=== PATIENT | male | born 1960 | race Caucasian/White ===

== ENCOUNTER → 2017-04-19 | Outpatient (CLI) | payer BC ==
[2017-04-19 14:24] LABS: Blood Urea Nitrogen 14 mg/dL (9-20); Non-African American GFR(MDRD) >60 (>60 ml/min/1.73 sqM)
== END | disposition home or self-care (01) ==
LOC: LABWHC1 12:30
PROVIDERS: ATTEND Internal Medicine
DX: R10.32 Left lower quadrant pain (principal)
CPT/HCPCS: 36415; 82565; 84520

== ENCOUNTER → 2017-04-23 | Outpatient (CLI) | payer BC ==
--- NOTE | 2017-04-23 07:54 | CT ---
EXAMINATION TYPE: CT abdomen pelvis w con DATE OF EXAM: 04/23/2017 REFERENCE: NONE HISTORY: R10.32 LLQ pain HISTORY: LLQ pain REFERENCE: NONE CT DLP: 2323.50 mGy Automated exposure control for dose reduction was used. TECHNIQUE: Helical acquisition through the abdomen and pelvis was obtained following the oral ingesti on of with Oral Contrast and following intravenous administration of 100 ml mL of Omnipaque 300. The data was reformatted in axial, coronal and sagittal projections. FINDINGS: There is mild dependent atelectasis in the dependent portions of the lungs. There is no pl eural or pericardial fluid. The heart is not enlarged. Within the abdomen, the liver is prominent measuring 19 cm. The gallbladder is contracted. The spleen is normal. Both adrenal glands are normal. There is a slightly irregular, 2.1 cm low attenuating lesion in the posterior aspect of mid polar reg ion of the left kidney. The kidneys are otherwise unremarkable. The pancreas is unremarkable. There is no significant retroperitoneal, iliac or inguinal adenopathy. There is mild calcification of the prostate. The bladder is not distended. There are rare diverticula in the sigmoid colon. There is no radiographic evidence of diverticulitis. The appendix is normal. Small bowel loops appear normal. There is no free fluid and no free air identified. There is degenerative disc disease and a vacuum phenomena at L5-S1. No bony destructive lesion is see n. IMPRESSION: 1. MILD HEPATOMEGALY. 2. MINIMAL, UNCOMPLICATED DIVERTICULOSIS OF THE SIGMOID COLON. 3. 2.1 CM LESION IN THE MID POLAR REGION OF THE LEFT KIDNEY DOES NOT MEET THE REQUIREMENTS OF A SIMPL E CYST. ULTRASOUND OF THE KIDNEYS WOULD BE SUGGESTED. 4. MILD DEGENERATIVE CHANGE WITHIN THE SPINE.
== END | disposition home or self-care (01) ==
LOC: RADCTMAIN 06:32
PROVIDERS: ATTEND Internal Medicine
DX: K57.30 Diverticulosis of large intestine without perforation or abscess without bleeding (principal); R16.1 Splenomegaly, not elsewhere classified; N28.9 Disorder of kidney and ureter, unspecified
CPT/HCPCS: 74177; Q9967

== ENCOUNTER → 2017-05-05 | Outpatient (CLI) | payer BC ==
--- NOTE | 2017-05-05 18:02 | US ---
EXAMINATION TYPE: US kidneys/renal and bladder DATE OF EXAM: 05/05/2017 COMPARISON: NONE CLINICAL HISTORY: N28.1 Cyst Of Kidney. EXAM MEASUREMENTS: Right Kidney: 11.9 x 5.6 x 6.5 cm Left Kidney: 11.9 x 5.9 x 5.6 cm Right Kidney: No hydronephrosis or masses seen Left Kidney: Cystic area with possible debris visualized measuring 1.8 x 1.8 x 2.1 cm Bladder: wnl Bilateral Jets seen: Yes IMPRESSION: There is a 2 cm hypoechoic area on the lateral left kidney with irregular margin consistent with a co mplex cyst. The wall appears thin. This is not changed in size compared to CT scan of 04/23/2017. There is no hydronephrosis. I have low suspicion of malignancy and I think this could be followed conserva tively with repeat ultrasound in 6 months.
== END | disposition home or self-care (01) ==
LOC: RADUSMAIN 17:10
PROVIDERS: ATTEND Internal Medicine
DX: N28.1 Cyst of kidney, acquired (principal)
CPT/HCPCS: 76770

== ENCOUNTER → 2017-09-07 | Outpatient (CLI) | payer BC ==
--- NOTE | 2017-09-07 12:36 | XR ---
EXAMINATION TYPE: XR chest 2V, 5 views left RIBS DATE OF EXAM: 09/07/2017 COMPARISON: 11/22/2014 HISTORY: 57-year-old male with cough and left-sided rib pain FINDINGS: The heart is upper limits of normal in size. Mild atherosclerotic arch calcifications. Mild interstit ial prominence has a chronic appearance. Mild elongation of the thoracic aorta. Prominent epicardial fat pad noted, similar to prior. Some strandy atelectasis at the posterior lung base on the lateral v iew. No amy consolidation or pleural effusion. Seems to be an old healed fracture deformity of the left anterolateral seventh rib characterized by m ature appearing periosteal callus. No displaced rib fractures seen. IMPRESSION: 1. Chest: Some strandy posterior basilar atelectasis. No acute process seen. 2. Left RIBS: Suspect old healed left anterolateral seventh rib fracture deformity. No displaced rib fracture seen.
== END | disposition home or self-care (01) ==
LOC: RADXRMAIN 11:36
PROVIDERS: ATTEND Internal Medicine
DX: J98.11 Atelectasis (principal); S20.212A Contusion of left front wall of thorax, initial encounter
CPT/HCPCS: 71020

== ENCOUNTER → 2018-01-19 | Outpatient (CLI) | payer BC ==
--- NOTE | 2018-01-19 14:30 | US ---
EXAMINATION TYPE: US kidneys/renal and bladder DATE OF EXAM: 01/19/2018 COMPARISON: US CLINICAL HISTORY: D41.02 Neoplasm of uncertain behavior of left kidney;takes Metformin; prior left re nal cyst EXAM MEASUREMENTS: Right Kidney: 12.1 x 6.1 x 5.1 cm Left Kidney: 12.3 x 6.5 x 5.9 cm Post Void Residual Volume: 2.8 mL Right Kidney: No hydronephrosis or masses seen Left Kidney: mid lower simple cortical cyst =2.1 x 2.3 x 2.0cm . Previous measurements 1.8 x 1.8 x 2.1 cm. Bladder: wnl Bilateral Jets seen: not seen after 3 minute observation Normal Post Void Residual: Yes IMPRESSION: 1. Left renal cyst appears simple
== END | disposition home or self-care (01) ==
LOC: RADUSMAIN 12:10
PROVIDERS: ATTEND Urology
DX: D41.02 Neoplasm of uncertain behavior of left kidney (principal); N28.1 Cyst of kidney, acquired
CPT/HCPCS: 76770

== ENCOUNTER → 2018-04-12 | Outpatient (CLI) | payer BC ==
[2018-04-12 17:29] LABS: Blood Urea Nitrogen 18 mg/dL (9-20)
--- NOTE | 2018-04-13 06:47 | CT ---
EXAMINATION TYPE: CT sinus wo/w con DATE OF EXAM: 04/12/2018 COMPARISON: NONE HISTORY: Sinus infections on and off x months with headaches per patient. Acute recurring frontal sin usitis per order CT DLP: 1334 mGycm. Automated Exposure Control for Dose Reduction was Utilized. TECHNIQUE: CT scan of the sinuses is performed without and with IV contrast, axial images are obtaine d, coronal reformatted images are also reviewed. Patient is injected with 100 cc of Omnipaque 300 for the study. FINDINGS: There is mild to moderate mucosal thickening involving the left maxillary sinus. There is m ild to moderate mucosal thickening involving left ethmoid sinus most prominent anteriorly. There is m inimal mucosal thickening in the larger left sphenoid sinus. Frontal sinuses are hypoplastic or nonfo rmed bilaterally. No suspicious opacification or air-fluid levels are seen. The ostiomeatal complex i s patent on the right but blocked on the left due to antral opacification. Visualized portion of mastoid air cells show no abnormal opacification. The globes are intact bilate rally. Visualized portion of brain parenchyma is unremarkable. Postcontrast images show no unusual e nhancement. IMPRESSION: Nonformed or hypoplastic bilateral frontal sinuses are noted. There is no evidence of chr onic left-sided paranasal sinus disease and obstruction of left-sided ostiomeatal complex.
== END | disposition home or self-care (01) ==
LOC: RADCTMAIN 16:56
PROVIDERS: ATTEND Internal Medicine
DX: J34.89 Other specified disorders of nose and nasal sinuses (principal)
CPT/HCPCS: 82565; 84520; 36415; 70488; Q9967

== ENCOUNTER → 2018-06-03 | Outpatient (CLI) | payer BC | END | disposition home or self-care (01) | LOC: LABWHC1 12:31 | PROVIDERS: ATTEND Otolaryngology | DX: Z01.818 Encounter for other preprocedural examination (principal); I10 Essential (primary) hypertension | CPT/HCPCS: 93005 ==

== ENCOUNTER → 2018-08-23 | Outpatient (CLI) | payer BC ==
--- NOTE | 2018-08-23 15:26 | MR ---
EXAMINATION TYPE: MR lumbar spine wo con DATE OF EXAM: 08/23/2018 COMPARISON: None HISTORY: LBP, pain going down left leg CONTRAST: 0 mL intravenous Gadavist. TECHNIQUE: Multiplanar, multisequence images of the lumbar spine were acquired. FINDINGS: Cord terminates at the L1-2 level L5-S1: There is loss of disc height to this level. There is a grade 1 spondylolisthesis of L5 anterio r on S1. Disc uncovering is present. No significant impression on the thecal sac is present. There is severe right foraminal stenosis with disc material displacing and compressing the nerve root within the foramen. Severe left foraminal stenosis is present. Vertebral body height is preserved. L4-L5: No significant disc bulge or disc herniation. No spinal canal stenosis. No foraminal stenosi s. Mild facet hypertrophy is present.. L3-L4: No significant disc bulge or disc herniation. No spinal canal stenosis. No foraminal stenosi s. Minimal ligamentum flavum laxity may be present.. L2-L3: No significant disc bulge or disc herniation. No spinal canal stenosis. No foraminal stenosi s. Minimal facet hypertrophy may have posterior lateral thecal sac compression. L1-L2: No significant disc bulge or disc herniation. No spinal canal stenosis. No foraminal stenosi s. . T12-L1: No significant disc bulge or disc herniation. No spinal canal stenosis. No foraminal stenos is. . IMPRESSION: 1. Grade 1 spondylolisthesis with L5 on S1. 2. Severe bilateral foraminal stenosis L5-S1. Disc stereo compresses the nerve roots bilaterally. Cor relate with radicular symptoms.
== END | disposition home or self-care (01) ==
LOC: RADMRIMAIN 12:14
PROVIDERS: ATTEND Physical Medicine & Rehabilitation
DX: M48.07 Spinal stenosis, lumbosacral region (principal); M43.17 Spondylolisthesis, lumbosacral region; E11.9 Type 2 diabetes mellitus without complications
CPT/HCPCS: 72148

== ENCOUNTER 2019-01-18 17:34 | Observation (INO) | payer OTHER, BC ==
[2019-01-18] MEDS ORDERED: MORPHINE SULFATE 4 MG/ML SYRINGE IM STA (18:06)
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
--- NOTE | 2019-01-18 19:10 | XR ---
EXAMINATION TYPE: XR tibia fibula RT DATE OF EXAM: 01/18/2019 COMPARISON: NONE HISTORY: Leg pain TECHNIQUE: 4 views FINDINGS: There is apparent subcutaneous edema around the lower leg. There is deformity of the latera l tibial plateau suspicious for a depressed plateau fracture. There is some spurring of the medial fe moral and tibial condyles. There is a plantar calcaneal spur. IMPRESSION: Subcutaneous edema. Mild osteoarthritis in the medial joint space of the knee. I suspect a lateral tibial plateau depressed fracture.
--- NOTE | 2019-01-18 19:11 | XR ---
EXAMINATION TYPE: XR femur RT DATE OF EXAM: 01/18/2019 COMPARISON: NONE HISTORY: Leg pain TECHNIQUE: 4 views FINDINGS: There is some spurring of the medial femoral and tibial condyles. The hip joint appears int act. There is irregular appearance of the lateral tibial plateau consistent with depressed central fr agment. There is no dislocation. There is small knee joint effusion. IMPRESSION: There is evidence for a lateral tibial plateau fracture. Normal right hip joint. No femor al fracture.
[2019-01-18] MEDS ORDERED: HYDROmorphone 2 MG/ML 1 ML SYRINGE IVP STA ×2 (19:37→22:05)
[2019-01-18] MEDS ORDERED: ONDANSETRON 4 MG/2 ML VIAL IVP STA (19:37)
--- NOTE | 2019-01-18 21:16 | CT ---
EXAMINATION TYPE: CT knee RT wo con DATE OF EXAM: 01/18/2019 COMPARISON: None HISTORY: Right knee pain. CT DLP: 156.6 mGycm Automated exposure control for dose reduction was used. FINDINGS: There is a depressed fracture of the lateral tibial plateau. The fragment measures 2 cm across. Depre ssion is approximately 5 mm. There is vertical fracture line extending through the lateral tibial con dyle. Vertical fractures through the anterior cortex of the lateral tibial condyle. There is knee lana nt effusion with increased density suggestive of hemarthrosis. There is narrowing of the medial join t space with spurring of the femoral and tibial condyles. The distal femur is intact. The patella is intact. IMPRESSION: DEPRESSED FRACTURE OF THE LATERAL TIBIAL PLATEAU. HEMARTHROSIS. OSTEOARTHRITIS.
[2019-01-18 22:44] LABS: Basophils # (A) 0.1 k/uL (0-0.2); Basophils % (A) 1 %; Eosinophils # (A) 0.4 k/uL (0-0.7); Eosinophils % (A) 2 %; HCT 45.6 % (39.0-53.0); HGB 15.3 gm/dL (13.0-17.5); Lymphocytes # (A) 1.1 k/uL (1.0-4.8); Lymphocytes % (A) 6 %; MCH 26.7 pg (25.0-35.0); MCHC 33.5 g/dL (31.0-37.0); MCV 79.6 fL (80.0-100.0); Mean Platelet Volume 7.9; Monocytes # (A) 1.1 k/uL (0-1.0); Monocytes % (A) 6 %; Neutrophils # (A) 16.2 k/uL (1.3-7.7); Neutrophils % (A) 85 %; Platelet Count 296 k/uL (150-450); RBC 5.74 m/uL (4.30-5.90); RDW 14.4 % (11.5-15.5)
[2019-01-18] MEDS ORDERED: ALPRAZolam 0.5 MG TAB PO PRN (22:48)
--- NOTE | 2019-01-18 22:53 | XR ---
EXAM: XR Chest, 1 View CLINICAL HISTORY: ITS.REASON XR Reason: Pain TECHNIQUE: Frontal view of the chest. COMPARISON: Chest radiographs on 09/07/2017 FINDINGS: Hardware: None. Lungs/pleura: Stable mild elevation of the right hemidiaphragm. No focal consolidation. No pleural effusion or pneumothorax. Heart/mediastinum: Normal. No cardiomegaly. Soft tissues: Unremarkable. Bones: No acute fracture. Upper abdomen: Normal. IMPRESSION: No acute disease identified.
[2019-01-18 22:56] LABS: Partial Thromboplastin Time 25.6 sec (22.0-30.0); Prothrombin Time 10.4 sec (9.0-12.0)
[2019-01-18 23:00] LABS: ALT 30 U/L (21-72); AST 20 U/L (17-59); Albumin 4.1 g/dL (3.5-5.0); Alkaline Phosphatase 103 U/L (38-126); Anion Gap 9 mmol/L; Blood Urea Nitrogen 9 mg/dL (9-20); Carbon Dioxide 25 mmol/L (22-30); Chloride 106 mmol/L (98-107); Glucose 110 mg/dL (74-99); Potassium 4.2 mmol/L (3.5-5.1); Sodium 140 mmol/L (137-145); Total Bilirubin 0.7 mg/dL (0.2-1.3); Total Protein 6.8 g/dL (6.3-8.2)
[2019-01-18] MEDS ORDERED: ONDANSETRON 4 MG/2 ML VIAL IVP PRN (23:09)
[2019-01-18] MEDS ORDERED: NALOXONE 0.4 MG/ML 1 ML VIAL IV PRN (23:09)
[2019-01-18] MEDS ORDERED: MORPHINE SULFATE 4 MG/ML SYRINGE IV PRN (23:09)
[2019-01-18] MEDS ORDERED: SODIUM CHLORIDE 0.9% 1,000 ML IV SCH (23:15)
[2019-01-19 01:09] VITALS: BMI 41.3
[2019-01-19 01:51] VITALS: RESP 16
[2019-01-19] MEDS: HYDROmorphone 1 MG/ML 1 ML SYRINGE IVP PRN ×2 (04:19→08:08)
[2019-01-19 07:49] LABS: Glucose,Whole Blood 126 mg/dL (75-99)
[2019-01-19] MEDS: GABAPENTIN 400 MG CAP PO SCH ×2 (08:08→16:01)
[2019-01-19] MEDS ORDERED: metFORMIN 500 MG TAB PO SCH (09:00)
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
[2019-01-19] MEDS ORDERED: HYDROcodone/APAP 7.5-325MG 1 EACH TAB PO PRN (09:37)
[2019-01-19] MEDS ORDERED: RIVAROXABAN 10 MG TAB PO SCH (09:45)
[2019-01-19] MEDS: HYDROcodone/APAP 7.5-325MG 1 EACH TAB PO PRN ×2 (10:49→16:01)
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
[2019-01-19 12:57] LABS: Glucose,Whole Blood 117 mg/dL (75-99)
[2019-01-19 15:19] VITALS: BP 146/82; PULSE 75; TEMP 98.7
[2019-01-19] MEDS ORDERED: amLODIPine 10 MG TAB PO SCH (21:00)
[2019-01-19] MEDS ORDERED: ATORVASTATIN 20 MG TAB PO SCH (21:00)
[2019-01-19] MEDS ORDERED: PANTOPRAZOLE 40 MG TABLET PO SCH (21:00)
[2019-01-19] MEDS ORDERED: CITALOPRAM HYDROBROMIDE 20 MG TAB PO SCH (21:00)
== END 2019-01-19 17:25 | disposition home or self-care (01) ==
LOC: EC 17:34 → 4MS4W 22:47
PROVIDERS: ADMIT Orthopaedic Surgery; ATTEND Orthopaedic Surgery
DX: S82.141A Displaced bicondylar fracture of right tibia, initial encounter for closed fracture (principal); S80.811A Abrasion, right lower leg, initial encounter; M25.551 Pain in right hip; M79.651 Pain in right thigh; K21.9 Gastro-esophageal reflux disease without esophagitis; J45.909 Unspecified asthma, uncomplicated; I10 Essential (primary) hypertension; G47.30 Sleep apnea, unspecified; E78.5 Hyperlipidemia, unspecified; E11.9 Type 2 diabetes mellitus without complications; F41.9 Anxiety disorder, unspecified; M19.031 Primary osteoarthritis, right wrist; M19.032 Primary osteoarthritis, left wrist; Z87.891 Personal history of nicotine dependence; M25.00 Hemarthrosis, unspecified joint; M17.11 Unilateral primary osteoarthritis, right knee; Z79.84 Long term (current) use of oral hypoglycemic drugs; Z79.899 Other long term (current) drug therapy; Z88.0 Allergy status to penicillin; Z91.041 Radiographic dye allergy status; Z99.89 Dependence on other enabling machines and devices; V43.52XA Car driver injured in collision with other type car in traffic accident, initial encounter; Y92.410 Unspecified street and highway as the place of occurrence of the external cause
CPT/HCPCS: 96376 ×3; 96372; 96374; 96375; 99285; 36415; 94660; 93005; 97162; 86900; 86901; 80053; 85025; 85610; 85730; 86850; 73552; 73590; 71045; 73700; G0378 ×2; L1830; J2270 ×2; J1170 ×2; J2405

== ENCOUNTER 2019-01-27 11:45 | Day surgery (SDC) | payer BC ==
[~2019-01-27 11:45] MED LIST: ACETAMINOPHEN TAB 500 MG TAB PO ONE; DEXAMETHASONE SOD PHOSPHATE 10 MG/ML 1 ML VIAL IV ONE; MELOXICAM 7.5 MG TAB PO ONE; MIDAZOLAM (PF) 2 MG/2 ML VIAL IV PRN; SCOPOLAMINE 1.5MG/72HR PATCH TRANSDERM ONE; TRANEXAMIC ACID 1,000 MG in SODIUM CHLORIDE 0.9% 100 ML IVPB ONE; ceFAZolin IN SWFI 2 GM/20 ML SYRINGE IVP ONE
[2019-01-27] MEDS ORDERED: LIDOCAINE 1% 20 ML VIAL (10MG/ML) FOR IV START INTRADERMA ONE (12:28)
[2019-01-27] MEDS: LACTATED RINGERS 1,000 ML IV SCH (12:28)
[2019-01-27] MEDS: ONDANSETRON 4 MG/2 ML VIAL IVP ONE ×2 (12:30→17:29)
[2019-01-27 12:38] LABS: Glucose,Whole Blood 105 mg/dL (75-99)
[2019-01-27] MEDS ORDERED: NEOSTIGMINE 1 MG/ML 10 ML VIAL ONE (14:38)
[2019-01-27] MEDS ORDERED: GLYCOPYRROLATE 0.2 MG/ML 2 ML VIAL ONE (14:38)
[2019-01-27] MEDS ORDERED: ePHEDrine SULFATE/0.9% NACL/PF 50 MG/5 ML SYRINGE IV ONE (14:38)
[2019-01-27] MEDS ORDERED: PROPOFOL 10 MG/ML 20 ML VIAL IV ONE (14:38)
[2019-01-27] MEDS ORDERED: SUCCINYLCHOLINE CHLORIDE 100 MG/5 ML SYR IV ONE (14:38)
[2019-01-27] MEDS ORDERED: MIDAZOLAM 2 MG/2 ML VIAL ONE (14:38)
[2019-01-27] MEDS ORDERED: ROCURONIUM BROMIDE 10 MG/ML 10 ML VIAL IV ONE (14:38)
[2019-01-27] MEDS ORDERED: ROPIVACAINE 5 MG/ML 30 ML VIAL ONE (14:38)
[2019-01-27] MEDS ORDERED: fentaNYL (PF) 50 MCG/ML 2 ML AMP ONE (14:38)
[2019-01-27] MEDS ORDERED: LIDOCAINE 1% INJ 10MG/ML (20 ML MDV) ONE (14:38)
[2019-01-27] MEDS ORDERED: ceFAZolin 1,000 MG in SODIUM CHLORIDE 0.9% 1,000 ML IRRIGATION ONE (15:16)
[2019-01-27] MEDS ORDERED: LACTATED RINGERS 1,000 ML IV ONE (15:23)
[2019-01-27] MEDS ORDERED: ONDANSETRON 4 MG/2 ML VIAL IVP PRN (17:19)
[2019-01-27] MEDS ORDERED: SENNOSIDES-DOCUSATE SODIUM 1 EACH TAB PO PRN (17:19)
[2019-01-27] MEDS ORDERED: HYDROmorphone 0.5 MG/0.5 ML SYRINGE IVP PRN ×2 (17:19)
[2019-01-27] MEDS ORDERED: HYDROmorphone 1 MG/ML 1 ML SYRINGE IVP PRN (17:19)
[2019-01-27] MEDS ORDERED: TEMAZEPAM 15 MG CAP PO PRN (17:19)
[2019-01-27] MEDS ORDERED: diphenhydrAMINE 25 MG CAP PO PRN (17:19)
[2019-01-27] MEDS ORDERED: hydrOXYzine PAMOATE 25 MG CAP PO PRN (17:19)
[2019-01-27 17:22] LABS: Glucose,Whole Blood 146 mg/dL (75-99)
[2019-01-27] MEDS: HYDROmorphone 0.5 MG/0.5 ML SYRINGE IVP PRN ×4 (17:29→17:45)
[2019-01-27] MEDS ORDERED: LACTATED RINGERS 1,000 ML IV SCH (17:30)
[2019-01-27] MEDS ORDERED: MELATONIN 5 MG TABLET PO PRN (19:09)
[2019-01-27] MEDS ORDERED: ALBUTEROL NEBULIZED 2.5 MG/3 ML INHALATION PRN (19:09)
[2019-01-27] MEDS ORDERED: ALPRAZolam 0.5 MG TAB PO PRN (19:09)
--- NOTE | 2019-01-27 19:29 | P.ONQ ---
Anesthesiology Proc Note - PNB - Peripheral Nerve Block Performed Right Popliteal Single Time Out Performed: Yes ([id number]) Procedure Start Time: 17:55 Procedure Stop Time: 18:00 Indication: Acute Post-Operative Pain, Dx/Pain Location (Right Ankle Pain), Requested by physician Sedation Type: Sedate with meaningful contact maintained Preparation: Sterile Prep Catheter: None Needle Types: On-Q Needle Size: 100mm (4") Needle Gauge: 21 Technique: Ultrasound Injectate: 0.5% Ropivacaine (see comment for volume) (20ml) Blood Aspirated: No Pain Paresthesia on Injection Noted: No Resistance on Injection: Normal Events: Uneventful and Well Tolerated
[2019-01-27 19:44] VITALS: BMI 42.3
[2019-01-27] MEDS ORDERED: FLUTICASONE 50MCG/SPRAY NASAL 16GM EA NOSTRIL PRN (19:45)
[2019-01-27] MEDS ORDERED: IPRATROPIUM-ALBUTEROL 3 ML NEB INHALATION PRN (19:56)
[2019-01-27 20:03] LABS: Glucose,Whole Blood 147 mg/dL (75-99)
[2019-01-27] MEDS: IPRATROPIUM-ALBUTEROL 3 ML NEB INHALATION SCH (20:47)
--- NOTE | 2019-01-27 20:58 | XR ---
EXAMINATION TYPE: XR knee limited RT DATE OF EXAM: 01/27/2019 COMPARISON: NONE TECHNIQUE: Two views submitted HISTORY: Post op FINDINGS: There is a postsurgical change in near anatomic alignment. There is soft tissue edema and emphysema. IMPRESSION: 1. Postoperative change. Appears in near-anatomic alignment
[2019-01-27] MEDS ORDERED: PANTOPRAZOLE 40 MG TABLET PO SCH (21:00)
[2019-01-27] MEDS ORDERED: ATORVASTATIN 20 MG TAB PO SCH (21:00)
[2019-01-27] MEDS ORDERED: amLODIPine 10 MG TAB PO SCH (21:00)
[2019-01-27] MEDS ORDERED: CITALOPRAM HYDROBROMIDE 20 MG TAB PO SCH (21:00)
[2019-01-27] MEDS: SENNOSIDES 8.6 MG TAB PO SCH (21:10)
[2019-01-27] MEDS: metFORMIN 500 MG TAB PO SCH (21:10)
[2019-01-27] MEDS: GABAPENTIN 400 MG CAP PO SCH (21:10)
[2019-01-27] MEDS: ceFAZolin 3 GM in SODIUM CHLORIDE 0.9% 100 ML IVPB SCH (21:56)
[2019-01-27] MEDS: INSULIN ASPART (NovoLOG) 100 UNIT/ML VIAL SQ SCH (22:25)
[2019-01-27] MEDS ORDERED: ceFAZolin IN SWFI 2 GM/20 ML SYRINGE IVP SCH (23:00)
--- NOTE | 2019-01-28 00:02 | CONS ---
CONSULTATION DATE OF SERVICE: 01/27/2019 REASON FOR CONSULTATION: Advice regarding asthma and other multiple medical issues requested by Dr. Hsu. HISTORY OF PRESENT ILLNESS: This 58-year-old gentleman with past medical history of asthma, diabetes, GERD, hypertension, hyperlipidemia, history of DJD being followed by Dr. Carpenter in the outpatient is admitted after ORIF of the home of the right knee and for fixation of the lateral tibial plateau. The patient complains of occasional cough. There is no history of fever, rigors or chills. No history of headache, loss of consciousness, seizures at this time. PAST MEDICAL HISTORY: Of asthma and diabetes, GERD, hypertension, hyperlipidemia, history of DJD, history of hernia repair. MEDICATIONS: Home medications are reviewed and include: 1. Glucophage 500 mg p.o. b.i.d. 2. Norvasc 10 mg p.o. daily. 3. Senokot 1 tablet p.o. b.i.d. 4. Xarelto 10 mg q.h.s. 5. Omeprazole 40 mg q.a.m. 6. Melatonin 10 mg q.h.s. 7. [place] 7.5 1-2 tablets q.6h p.r.n. 8. Gabapentin 800 mg p.o. t.i.d. 9. Celexa 40 mg q.h.s. 10.Lipitor 20 mg q.h.s. 11.Ventolin 1-2 puffs q.i.d. p.r.n. 12.Xanax 0.5 t.i.d. p.r.n. 13.Senokot-S 1 tablet p.o. b.i.d. 14.Xarelto 10 mg p.o. daily. 15.[place] 7.5 q.6h p.r.n. 16.Aspirin 81 mg. ALLERGIES: PENICILLIN AND IODINATED CONTRAST DYE. FAMILY HISTORY: History of CVA, TIA, diabetes, hypertension. SOCIAL HISTORY: Previous history of smoking. No history of any alcohol. REVIEW OF SYSTEMS: ENT: No diminished hearing or vision. CARDIOVASCULAR: No angina. No palpitations. RESPIRATORY: History of asthma. GI no nausea or vomiting. : No dysuria. NERVOUS SYSTEM: No numbness or weakness ALLERGY/IMMUNOLOGY: No asthma or hayfever. MUSCULOSKELETAL as mentioned. HEMATOLOGY/ONCOLOGY: No history of diabetes. CONSTITUTIONAL: As mentioned earlier. Dermatology: Negative. Rheumatology: Negative. Psychiatry: As mentioned earlier. PHYSICAL EXAM: Patient is alert, oriented x3. Pulse is 81, blood pressure 143/69, respiratory rate 16, temperature 98.1, pulse ox 92% on 3 L. HEENT is conjunctivae normal. Oral mucosa moist. Neck is no jugular venous distention. No carotid bruit. No lymph node enlargement. Cardiovascular: S1 S2 muffled. RESPIRATIONS: Breath sounds diminished in the bases. A few scattered rhonchi and crackles. Expiratory wheezing also present. ABDOMEN: Soft, nontender. Legs status post surgery of the right knee. CENTRAL NERVOUS SYSTEM: No focal deficits. SKIN: No ulcer, rash, or bleeding. JOINTS: As mentioned earlier. LABS: Accu-Cheks 140, 145, 146. Otherwise hematology WBC is 19 and coags are normal. Chemistry was reviewed. Hemoglobin A1c 6.1. ASSESSMENT: 1. Status post ORIF of the lateral tibial plateau of the fracture of the right kidney. 2. History of asthma. 3. Diabetes mellitus type 2. 4. History of gastroesophageal reflux disease. 5. Hypertension. 6. Hyperlipidemia. 7. History of sleep apnea, on CPAP BiPAP. 8. Tinnitus. 9. History of anxiety. 10.Remote history of nicotine dependence. 11.History of degenerative joint disease. RECOMMENDATIONS AND DISCUSSION: In this 58-year-old gentleman who presented with multiple complex medical issues, we will monitor the patient closely. Continue the current medications. I recommend resume the home medications. I would also recommend around the clock DuoNeb and continue to monitor. DVT prophylaxis. Will follow the patient closely with you. The patient may be asked to follow with Dr. Carpenter closely after discharge. Thank you Dr. Hsu for letting us participate in the care of this patient. MMODL / IJN: [id number] /
[2019-01-28] MEDS: ceFAZolin 3 GM in SODIUM CHLORIDE 0.9% 100 ML IVPB SCH (05:12)
[2019-01-28 07:12] LABS: Glucose,Whole Blood 131 mg/dL (75-99)
[2019-01-28] MEDS: IPRATROPIUM-ALBUTEROL 3 ML NEB INHALATION SCH ×2 (08:02→13:45)
[2019-01-28 08:13] LABS: Basophils % (A) 0 %; Eosinophils % (A) 0 %; HCT 41.8 % (39.0-53.0); HGB 13.3 gm/dL (13.0-17.5); Lymphocytes # (A) 0.8 k/uL (1.0-4.8); Lymphocytes % (A) 4 %; MCHC 31.9 g/dL (31.0-37.0); MCV 81.5 fL (80.0-100.0); Mean Platelet Volume 7.3; Monocytes % (A) 6 %; Neutrophils # (A) 16.5 k/uL (1.3-7.7); Neutrophils % (A) 89 %; Platelet Count 349 k/uL (150-450); RBC 5.12 m/uL (4.30-5.90); RDW 14.6 % (11.5-15.5); WBC 18.6 k/uL (3.8-10.6)
[2019-01-28 08:20] LABS: Anion Gap 7 mmol/L; Blood Urea Nitrogen 14 mg/dL (9-20); Calcium 9.2 mg/dL (8.4-10.2); Carbon Dioxide 27 mmol/L (22-30); Chloride 106 mmol/L (98-107); Glucose 130 mg/dL (74-99); Potassium 4.2 mmol/L (3.5-5.1); Sodium 140 mmol/L (137-145)
[2019-01-28] MEDS: INSULIN ASPART (NovoLOG) 100 UNIT/ML VIAL SQ SCH ×2 (08:50→12:12)
[2019-01-28] MEDS: LACTATED RINGERS 1,000 ML IV SCH (08:50)
[2019-01-28 08:59] VITALS: BP 131/69; RESP 16; TEMP 98.4
[2019-01-28] MEDS ORDERED: RIVAROXABAN 10 MG TAB PO SCH (09:00)
[2019-01-28] MEDS: GABAPENTIN 400 MG CAP PO SCH (09:04)
[2019-01-28] MEDS: metFORMIN 500 MG TAB PO SCH (09:04)
[2019-01-28] MEDS: SENNOSIDES 8.6 MG TAB PO SCH (09:04)
[2019-01-28] MEDS ORDERED: HYDROcodone/APAP 10-325MG 1 EACH TAB PO PRN ×2 (10:03)
--- NOTE | 2019-01-28 10:39 | P.DS ---
Providers Date of admission: 01/27/19 Expected date of discharge: 01/28/19 Attending physician: Marvel Hsu Consults: 01/27/19 17:29 Consult Physician Routine Consulting Provider: Troy Banks Consult Reason/Comments: Medical management Do you want consulting provider notified?: Yes Primary care physician: Justine Carpenter - Discharge Diagnosis(es) (1) Fracture of right tibial plateau Patient was admitted to the OR on 01/27/2019 to undergo an ORIF right tibia plateau fracture. He had failed conservative measures as an outpatient and desired to proceed with elective surgery after given informed consent. He underwent the above procedure which he tolerated well without complication. Postoperative hospital course has remained without complication. On day of discharge he is afebrile, vital signs stable, labs within acceptable ranges, tolerating by mouth meds and diet, voiding without difficulty, positive flatus, denies abdominal pain or calf pain, pain is controlled on oral pain medication and has no new complaints. Wound is benign, neurovascular status is intact, calf is soft and nontender, abdomen soft and nontender. Review of systems is negative for numbness, tingling, fever, chills, chest pain, shortness breath, nausea, vomiting, dizziness, headaches, slurred speech or other Current Visit: No Status: Acute Priority: Medium Procedures: ORIF right tibia plateau Patient Condition at Discharge: Good Plan - Discharge Summary Discharge Rx Participant: Yes New Discharge Prescriptions: New Aspirin [Adult Low Dose Aspirin EC] 81 mg PO DAILY #1 tablet. HYDROcodone/APAP 7.5-325MG [[place] 7.5-325] 1 - 2 tab PO Q4-6H PRN #50 tab PRN Reason: Pain Sennosides-Docusate Sodium [Senokot-S] 1 tab PO BID #60 tablet Rivaroxaban [Xarelto] 10 mg PO DAILY #5 tab No Action Gabapentin 800 mg PO TID Atorvastatin Calcium [Lipitor] 20 mg PO HS ALPRAZolam [Xanax] 0.5 mg PO TID PRN PRN Reason: Anxiety metFORMIN HCL [Glucophage] 500 mg PO BID amLODIPine [Norvasc] 10 mg PO HS Omeprazole 40 mg PO HS Citalopram Hydrobromide [CeleXA] 40 mg PO HS HYDROcodone/APAP 7.5-325MG [[place] 7.5-325] 1 - 2 tab PO Q6H PRN #56 tab PRN Reason: Pain Sennosides [Senokot] 1 tab PO BID #60 tablet Melatonin 10 mg PO HS PRN PRN Reason: Insomnia Rivaroxaban [Xarelto] 10 mg PO HS Albuterol Inhaler [Ventolin Hfa Inhaler] 1 - 2 inhalation INHALATION QID PRN PRN Reason: Shortness Of Breath Discharge Medication List ALPRAZolam [Xanax] 0.5 mg PO TID PRN 01/18/19 [History] Atorvastatin Calcium [Lipitor] 20 mg PO HS 01/18/19 [History] Citalopram Hydrobromide [CeleXA] 40 mg PO HS 01/18/19 [History] Gabapentin 800 mg PO TID 01/18/19 [History] Omeprazole 40 mg PO HS 01/18/19 [History] amLODIPine [Norvasc] 10 mg PO HS 01/18/19 [History] metFORMIN HCL [Glucophage] 500 mg PO BID 01/18/19 [History] HYDROcodone/APAP 7.5-325MG [[place] 7.5-325] 1 - 2 tab PO Q6H PRN #56 tab 01/19/19 [Rx] Sennosides [Senokot] 1 tab PO BID #60 tablet 01/19/19 [Rx] Albuterol Inhaler [Ventolin Hfa Inhaler] 1 - 2 inhalation INHALATION QID PRN 01/24/19 [History] Melatonin 10 mg PO HS PRN 01/24/19 [History] Rivaroxaban [Xarelto] 10 mg PO HS 01/24/19 [History] Aspirin [Adult Low Dose Aspirin EC] 81 mg PO DAILY #1 tablet. 01/27/19 [Rx] HYDROcodone/APAP 7.5-325MG [[place] 7.5-325] 1 - 2 tab PO Q4-6H PRN #50 tab 01/27/19 [Rx] Rivaroxaban [Xarelto] 10 mg PO DAILY #5 tab 01/27/19 [Rx] Sennosides-Docusate Sodium [Senokot-S] 1 tab PO BID #60 tablet 01/27/19 [Rx] Follow up Appointment(s)/Referral(s): Gisell Alexandre, MELANIE [PHYSICIAN DIRECTOR OF MATERNITY SERVICES] - 10 Days Activity/Diet/Wound Care/Special Instructions: Toe touch wt bearing RLE w walker. Maintain knee immobilizer when up, may have off in bed. May shower if no drainage from incision. Discharge Disposition: HOME SELF-CARE
[2019-01-28 12:21] LABS: Glucose,Whole Blood 149 mg/dL (75-99)
[2019-01-28] MEDS ORDERED: IBUPROFEN 600 MG TAB PO STA (12:28)
[2019-01-28 13:58] VITALS: PULSE 88
--- NOTE | 2019-01-28 19:17 | PN ---
PROGRESS NOTE . DATE OF SERVICE: 01/28/2019 This 58-year-old gentleman who was admitted after knee surgery is improving significantly. No chest pain. No palpitations. Patient received a course of bronchodilators and nebulizers. No chest pain. No palpitations. No fever. EXAM: Alert and oriented times three. Pulse 94, blood pressure 131/16, respirations 16, temperature 98.4, pulse ox 93% on room air. HEENT: Conjunctivae normal. NECK: No jugular venous distention. No carotid bruit. CARDIOVASCULAR: S1, S2. RESPIRATIONS: Breath sounds diminished in the bases. A few rhonchi. No crackles. ABDOMEN: Soft. LEGS: Status post surgery. CENTRAL NERVOUS SYSTEM: No focal deficits. LABS: WBC 18.3, hemoglobin is 13.3. ASSESSMENT: 1. Status post ORIF of the lateral tibial plateau fracture,. 2. History of bronchial asthma, chronic intermittent. 3. Increased WBC possibly reactive. 4. Diabetes mellitus type 2. 5. History of gastroesophageal reflux disease. 6. Hypertension. 7. Hyperlipidemia. 8. History of sleep apnea on CPAP and BiPAP. 9. Tinnitus history. 10.History of anxiety. 11.Remote history of nicotine dependence. 12.History of degenerative joint disease. RECOMMENDATIONS AND DISCUSSION: I recommend to continue current medications, monitoring, management and symptomatic treatment. Bronchodilators. Resume the home medications. Incentive spirometry. Closely follow with primary physician. The rest of the recommendations per Orthopedic Surgery. Further recommendations to follow. MMODL / TRIPN: [id number] / MTDD
--- NOTE | 2019-01-30 07:56 | FL ---
EXAMINATION TYPE: FL guidance operating room DATE OF EXAM: 01/27/2019 FLUOROSCOPY Fluoroscopy time of 1 minute 2 seconds was used during right tibial plateau fracture fixation. 2 im age/s document/s the procedure.
--- NOTE | 2019-02-06 17:46 | P.OP ---
Date of Procedure: 01/27/19 Procedure(s) Performed: ORIF lateral tibial plateau fracture cain PREOPERATIVE DIAGNOSES: 1. Right knee depression type lateral tibial plateau fracture POSTOPERATIVE DIAGNOSES: 1. Right knee depression type lateral tibial plateau fracture PROCEDURES PERFORMED: 1. Right knee lateral tibial plateau fracture open reduction internal fixation with void filling with Norian bone substitute ANESTHESIA: Gen. ELECTRICAL MANAGER: Gisell Alexandre PA-C (assistance with exposure, hemostasis, retraction, fixation, closure, dressing, splint) COMPLICATIONS: None ESTIMATED BLOOD LOSS: Less than 10 mL. DISPOSITION: To post-anesthesia care unit INDICATIONS: Mr. Russ is a 58 -year-old male with a history of falling from a ladder and sustaining a right lateral tibial plateau fracture. Preoperative CT scanning has shown a comminuted tibial plateau fracture with joint depression of approximately 1 cm. Considering this patient's relatively young age and activity level, I have advised reduction internal fixation of the lateral tibial plateau fracture with a plate and screw construct and application of bone graft or substitute to fill the voids. I have discussed potential risks and complications as per the preoperative office note. The consent form has been signed. PROCEDURE: After appropriate consent was obtained, the patient was taken to the operating room placed in the supine position. Anesthesia was initiated, and after confirmation of adequate anesthesia, the patient was carefully positioned. Care was taken to make sure that all pressure points were adequately padded. Prepping and draping were completed in the usual aseptic fashion using ChloraPrep. Timeout was called, confirming patient identity, side, procedure, and administration of antibiotics. A pneumo tourniquet was used high on the right thigh. The limb was exsanguinated with an Esmarch bandage and the tourniquet was then inflated to 300 mmHg. An anterolateral approach was undertaken, utilizing a S-shaped curved incision directly over Gerdy's tubercle. The incision was deepened down through skin and into subcutaneous tissues and down to fascia. IT band insertion was noted on Gerdy's tubercle and incision along the fibers of the IT band was performed, splitting the IT band more proximally. The IT band was then retracted anteriorly and the lateral aspect of the tibia was exposed. Hemostasis was obtained throughout the case using electrocautery. Some meniscal arthrotomy was performed and an assistant professor of archaeology held the knee in varus stress to open up the lateral joint compartment. Adequate visualization was accomplished using a headlight. The joint surface was noted to be comminuted and centrally depressed. A bone window was created under fluoroscopic guidance using a large drill bit and a tamp was placed through this cortical window into the area of depressed comminution centrally. Using gentle mallet taps and a flat tamp, the joint surface was elevated under direct visualization until satisfactory reduction was accomplished. The void left by tamping the cancellus bone was then filled using Norian bone substitute. Once the bone substitute had hardened sufficiently, a lateral 4.5 mm periarticular plate from [employer] was placed onto the lateral aspect of the knee and a guide pin was drilled across the joint surface told the plate proximally into position. The slotted hole was used to place a 4.5 millimeter cortical screw bicortically, bringing the plate to the bone. This was also accomplished using a Playto bone clamp percutaneously. Proximally, the raft screws were placed in standard fashion through the guide and drilled parallel to the joint surface approximately 5 mm from the subchondral bone. Screws were placed without event. The more distal screws were placed using the guide in locking fashion. C-arm imaging in both AP and lateral planes was used to guide hardware placement and confirm screw lengths. Range of motion testing after hardware placement showed range of motion from full extension to 100 and 25 of flexion easily without disturbance of the repaired joint surface Thorough irrigation was performed and final hemostasis was obtained using electrocautery. The lateral meniscus was repaired using through bone #2 FiberWire sutures through the plate supplemented with 0 Vicryl sutures through the plate. Stable repair was accomplished. Further repair of the soft tissues was accomplished using 0 Vicryl suture and strata fix suture to repair the IT band/fascia. Subcutaneous closure was performed using 2-0 Vicryl suture followed by running strata fix suture for the dermis. Exofin cyanoacrylate skin closure was performed over Exofin tape. Sterile dressing was applied and a knee immobilizer was applied. Patient tolerated the procedure well and taken to recovery room in stable condition. Sponge and needle counts were correct.
== END 2019-01-28 14:40 | disposition home or self-care (01) ==
LOC: OR 11:45 → 4SSUR 17:14 → OR 01-28 14:40
PROVIDERS: ATTEND Orthopaedic Surgery
DX: S82.141A Displaced bicondylar fracture of right tibia, initial encounter for closed fracture (principal); E78.5 Hyperlipidemia, unspecified; E11.9 Type 2 diabetes mellitus without complications; F41.9 Anxiety disorder, unspecified; I10 Essential (primary) hypertension; J45.20 Mild intermittent asthma, uncomplicated; K21.9 Gastro-esophageal reflux disease without esophagitis; M19.90 Unspecified osteoarthritis, unspecified site; Z79.82 Long term (current) use of aspirin; Z79.899 Other long term (current) drug therapy; Z83.3 Family history of diabetes mellitus; Z87.891 Personal history of nicotine dependence; Z88.0 Allergy status to penicillin; Z79.84 Long term (current) use of oral hypoglycemic drugs; Z79.01 Long term (current) use of anticoagulants; Z91.041 Radiographic dye allergy status; G47.33 Obstructive sleep apnea (adult) (pediatric); Z99.89 Dependence on other enabling machines and devices; W11.XXXA Fall on and from ladder, initial encounter
CPT/HCPCS: 27535; 64450; 94640 ×3; 94760; 97161; 80048; 85025; 73560; C1713; J2250; J1100; J2710; J0690 ×3; J2405; J2001; J3010; J1170 ×2; J2795; J0330; J2704; 64445

== ENCOUNTER 2019-02-27 10:42 | Inpatient (IN) | payer BC ==
[2019-02-27] MEDS ORDERED: SODIUM CHLORIDE 0.9% 500 ML 500 ML IV STA (11:20)
[2019-02-27] MEDS ORDERED: ONDANSETRON 4 MG/2 ML VIAL IVP STA (11:20)
[2019-02-27] MEDS ORDERED: HYDROmorphone 0.5 MG/0.5 ML SYRINGE IVP STA (11:20)
[2019-02-27] MEDS ORDERED: SODIUM CHLORIDE 0.9% 1,000 ML IV STA (11:20)
[2019-02-27] MEDS ORDERED: methylPREDNISolone SOD SUCCI 125 MG/2 ML VIAL IV STA (11:21)
[2019-02-27] MEDS ORDERED: diphenhydrAMINE 50 MG/ML 1 ML VIAL IVP STA (11:21)
[2019-02-27] MEDS ORDERED: FAMOTIDINE 20 MG/2 ML VIAL IV STA (11:22)
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
[2019-02-27 12:31] LABS: Appearance,Urine Clear (Clear); Basophils # (A) 0.1 k/uL (0-0.2); Basophils % (A) 0 %; Bilirubin,Urine Negative (Negative); Blood,Urine Negative (Negative); Color,Urine Yellow; Eosinophils # (A) 0.4 k/uL (0-0.7); Eosinophils % (A) 2 %; Glucose,Urine (UA) Negative (Negative); HCT 48.6 % (39.0-53.0); HGB 15.8 gm/dL (13.0-17.5); Ketones,Urine Negative (Negative); Leukocyte Esterase,Urine Negative (Negative); Lymphocytes # (A) 1.6 k/uL (1.0-4.8); Lymphocytes % (A) 9 %; MCHC 32.4 g/dL (31.0-37.0); MCV 80.2 fL (80.0-100.0); Mean Platelet Volume 7.3; Monocytes # (A) 1.1 k/uL (0-1.0); Monocytes % (A) 6 %; Neutrophils # (A) 14.3 k/uL (1.3-7.7); Neutrophils % (A) 82 %; Nitrite,Urine Negative (Negative); Platelet Count 268 k/uL (150-450); Protein,Urine Negative (Negative); RBC 6.06 m/uL (4.30-5.90); RDW 15.3 % (11.5-15.5); Specific Gravity,Urine 1.012 (1.001-1.035); Urobilinogen,Urine <2.0 mg/dL (<2.0); WBC 17.5 k/uL (3.8-10.6)
[2019-02-27 12:45] LABS: ALT 29 U/L (21-72); AST 17 U/L (17-59); Albumin 4.2 g/dL (3.5-5.0); Alkaline Phosphatase 98 U/L (38-126); Amylase 50 U/L (30-110); Anion Gap 8 mmol/L; Blood Urea Nitrogen 13 mg/dL (9-20); Calcium 9.8 mg/dL (8.4-10.2); Carbon Dioxide 26 mmol/L (22-30); Chloride 106 mmol/L (98-107); Glucose 103 mg/dL (74-99); INR 0.9 (<1.2); Lipase 106 U/L (23-300); Partial Thromboplastin Time 25.6 sec (22.0-30.0); Prothrombin Time 10.1 sec (9.0-12.0); Sodium 140 mmol/L (137-145); Total Bilirubin 0.6 mg/dL (0.2-1.3); Total Protein 6.9 g/dL (6.3-8.2)
--- NOTE | 2019-02-27 13:16 | CT ---
EXAMINATION TYPE: CT abdomen pelvis w con DATE OF EXAM: 02/27/2019 COMPARISON: HISTORY: Left sided pain with abdominal cramping. CT DLP: 1793.8 mGycm Automated exposure control for dose reduction was used. TECHNIQUE: Helical acquisition of images from the lung bases through the pelvis have been completed. CONTRAST: Performed without Oral Contrast and with IV Contrast, patient injected with 100 mL of Isovue 300. 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 Small umbilical hernia contains fat. LUNG BASES: No significant abnormality is appreciated. Some persistent basilar atelectatic changes ar e suspected AORTA: No significant abnormality is appreciated. LIVER/GB: No significant abnormality is appreciated. Liver shows low attenuation. The liver is enlarg ed. Gallbladder is normal. PANCREAS: No significant abnormality is seen. SPLEEN: No significant abnormality is seen. ADRENALS: No significant abnormality is seen. KIDNEYS: Stable, likely cortical cyst in the left kidney as on prior has increased in size and now me asures 2.8 cm REPRODUCTIVE ORGANS: Prostate shows associated calcifications. BOWEL: Inflammatory changes associate d with the descending colon, there is wall thickening and pericolonic inflammatory change extending f rom the level of the splenic flexure inferiorly to the sigmoid level, there are some diverticular eleanor nges associated with the sigmoid colon FREE AIR: No Free Air visible. ASCITES: None visible. PELVIC ADENOPATHY: None visualized. RETROPERITONEAL ADENOPATHY: No Retroperitoneal Adenopathy visible. URINARY BLADDER: No significant abnormality is seen. OSSEOUS STRUCTURES: Bilateral spondylolysis at L5. There is an anterolisthesis grade 1 L5-S1. Vacuum phenomenon is present at L5-S1 with associated loss of disc height.. IMPRESSION: CORRELATE FOR COLITIS, FOLLOW-UP SUGGESTED. POSSIBLE HEPATIC STEATOSIS, THERE IS HEPATOMEGALY. DIVERT ICULOSIS AND ADDITIONAL FINDINGS ABOVE.
[2019-02-27] MEDS ORDERED: LEVOFLOXACIN 750MG-D5W PMX 750 MG in DEXTROSE/WATER 1 150ML.BAG IVPB STA (13:26)
[2019-02-27] MEDS ORDERED: ONDANSETRON 4 MG/2 ML VIAL IVP PRN (13:27)
[2019-02-27] MEDS ORDERED: NALOXONE 0.4 MG/ML 1 ML VIAL IV PRN (13:27)
[2019-02-27] MEDS ORDERED: ACETAMINOPHEN TAB 325 MG TAB PO PRN (13:27)
[2019-02-27] MEDS ORDERED: metroNIDAZOLE-NS PMX 500 MG in SALINE 1 100ML.BAG IVPB STA (13:37)
[2019-02-27] MEDS: HYDROmorphone 0.5 MG/0.5 ML SYRINGE IVP PRN ×3 (14:23→21:49)
[2019-02-27] MEDS: SODIUM CHLORIDE 0.9% 1,000 ML IV SCH (16:36)
[2019-02-27] MEDS: GABAPENTIN 400 MG CAP PO SCH ×2 (16:37→21:49)
[2019-02-27] MEDS: PANTOPRAZOLE 40 MG TABLET PO SCH (20:57)
[2019-02-27] MEDS: ATORVASTATIN 20 MG TAB PO SCH (20:57)
[2019-02-27] MEDS: CITALOPRAM HYDROBROMIDE 20 MG TAB PO SCH (20:57)
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
[2019-02-27] MEDS: MELATONIN 5 MG TABLET PO PRN (21:48)
[2019-02-27] MEDS: HYDROcodone/APAP 5-325MG 1 EACH TAB PO PRN (21:50)
[2019-02-27] MEDS: metroNIDAZOLE-NS PMX 500 MG in SALINE 1 100ML.BAG IVPB SCH (23:23)
[2019-02-27] MEDS: ALPRAZolam 0.5 MG TAB PO PRN (23:42)
[2019-02-28] MEDS: HYDROmorphone 0.5 MG/0.5 ML SYRINGE IVP PRN ×4 (00:58→13:13)
[2019-02-28] MEDS: SODIUM CHLORIDE 0.9% 1,000 ML IV SCH ×3 (02:57→20:23)
[2019-02-28] MEDS: GABAPENTIN 400 MG CAP PO SCH ×3 (06:56→21:58)
[2019-02-28] MEDS: HYDROcodone/APAP 5-325MG 1 EACH TAB PO PRN ×3 (06:56→20:22)
[2019-02-28] MEDS: metroNIDAZOLE-NS PMX 500 MG in SALINE 1 100ML.BAG IVPB SCH ×2 (06:57→16:26)
[2019-02-28 07:07] LABS: Glucose,Whole Blood 143 mg/dL (75-99)
[2019-02-28 08:04] LABS: Anion Gap 9 mmol/L; Blood Urea Nitrogen 17 mg/dL (9-20); Calcium 9.7 mg/dL (8.4-10.2); Carbon Dioxide 23 mmol/L (22-30); Chloride 108 mmol/L (98-107); Glucose 132 mg/dL (74-99); Potassium 4.3 mmol/L (3.5-5.1); Sodium 140 mmol/L (137-145)
[2019-02-28 08:38] LABS: Basophils % (A) 0 %; Eosinophils % (A) 0 %; HCT 47.1 % (39.0-53.0); HGB 14.8 gm/dL (13.0-17.5); Lymphocytes % (A) 4 %; MCH 25.8 pg (25.0-35.0); MCHC 31.5 g/dL (31.0-37.0); MCV 81.8 fL (80.0-100.0); Mean Platelet Volume 7.7; Monocytes # (A) 0.7 k/uL (0-1.0); Monocytes % (A) 3 %; Neutrophils # (A) 20.8 k/uL (1.3-7.7); Neutrophils % (A) 92 %; Platelet Count 269 k/uL (150-450); RBC 5.75 m/uL (4.30-5.90); RDW 14.9 % (11.5-15.5); WBC 22.6 k/uL (3.8-10.6)
[2019-02-28] MEDS: INSULIN ASPART (NovoLOG) 100 UNIT/ML VIAL SQ SCH ×4 (09:26→20:23)
[2019-02-28 11:14] LABS: Glucose,Whole Blood 132 mg/dL (75-99)
[2019-02-28 15:04] VITALS: BMI 39.9
[2019-02-28 16:36] LABS: Glucose,Whole Blood 104 mg/dL (75-99)
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
[2019-02-28] MEDS: LEVOFLOXACIN 750MG-D5W PMX 750 MG in DEXTROSE/WATER 1 150ML.BAG IVPB SCH (19:26)
[2019-02-28] MEDS: PANTOPRAZOLE 40 MG TABLET PO SCH (20:22)
[2019-02-28] MEDS: CITALOPRAM HYDROBROMIDE 20 MG TAB PO SCH (20:22)
[2019-02-28] MEDS: ATORVASTATIN 20 MG TAB PO SCH (20:22)
[2019-02-28 20:39] LABS: Glucose,Whole Blood 127 mg/dL (75-99)
[2019-02-28] MEDS: ALPRAZolam 0.5 MG TAB PO PRN (21:59)
[2019-03-01] MEDS: metroNIDAZOLE-NS PMX 500 MG in SALINE 1 100ML.BAG IVPB SCH ×3 (05:03→16:17)
[2019-03-01] MEDS: SODIUM CHLORIDE 0.9% 1,000 ML IV SCH ×2 (05:03→16:24)
[2019-03-01 06:59] LABS: Glucose,Whole Blood 98 mg/dL (75-99)
[2019-03-01] MEDS: INSULIN ASPART (NovoLOG) 100 UNIT/ML VIAL SQ SCH ×4 (07:30→21:35)
[2019-03-01] MEDS: GABAPENTIN 400 MG CAP PO SCH ×3 (08:40→21:11)
[2019-03-01 10:54] LABS: Basophils # (A) 0.1 k/uL (0-0.2); Basophils % (A) 0 %; Eosinophils # (A) 0.1 k/uL (0-0.7); Eosinophils % (A) 1 %; HCT 44.1 % (39.0-53.0); HGB 14.1 gm/dL (13.0-17.5); Lymphocytes # (A) 2.6 k/uL (1.0-4.8); Lymphocytes % (A) 18 %; MCH 26.1 pg (25.0-35.0); MCV 81.6 fL (80.0-100.0); Mean Platelet Volume 7.6; Monocytes # (A) 0.9 k/uL (0-1.0); Monocytes % (A) 6 %; Neutrophils # (A) 10.7 k/uL (1.3-7.7); Neutrophils % (A) 73 %; Platelet Count 247 k/uL (150-450); RDW 14.9 % (11.5-15.5); WBC 14.7 k/uL (3.8-10.6)
--- NOTE | 2019-03-01 11:13 | P.PN ---
<Poppy Crespo - Last Filed: 03/01/19 11:52> Subjective Progress Note Date: 03/01/19 CHIEF COMPLAINT: Abdominal pain HISTORY OF PRESENT ILLNESS: Patient examined this morning at the bedside. Patient reports continued tenderness to left lower quadrant. He rates his pain about the same as yesterday. Denies nausea or vomiting. Tolerating clear liquid diet. Reports formed stool this morning with small amount of bright red blood. WBC 14.7. PHYSICAL EXAM: VITAL SIGNS: Reviewed. GENERAL: Well-developed in no acute distress. HEENT: No sclera icterus. Extraocular movements grossly intact. Moist buccal mucosa. Head is atraumatic, normocephalic. ABDOMEN: Soft. Nondistended. Tenderness to left lower quadrant. NEUROLOGIC: Alert and oriented. Cranial nerves II through XII grossly intact. ASSESSMENT: 1. Abdominal pain 2. Colitis PLAN: 1. Continue antibiotics 2. Monitor WBC 3. Advance diet to full liquid Nurse practitioner note has been reviewed by physician. Signing provider agrees with the documented findings, assessment, and plan of care. Objective - Vital Signs Vital signs: Vital Signs Temp 98 F 03/01/19 05:00 Pulse 78 03/01/19 05:00 Resp 17 03/01/19 05:00 BP 122/77 03/01/19 05:00 Pulse Ox 97 03/01/19 05:00 Intake & Output 02/28/19 03/01/19 03/01/19 18:59 06:59 18:59 Intake Total 1550 1820 Balance 1550 1820 Weight 122.47 kg Intake: Intake, IV Titration 900 400 Amount Levofloxacin 750Mg-D5w 150 Pmx 750 mg In Dextrose/ Water 1 150ml.bag @ 100 mls/hr IVPB Q24H [facility] Rx#: [id number] Sodium Chloride 0.9% 1, 800 250 000 ml @ 100 mls/hr IV . Q10H [facility] Rx#:[id number] metroNIDAZOLE-NS PMX 500 100 mg In Saline 1 100ml.bag @ 100 mls/hr IVPB Q8HR [facility] Rx#:[id number] Oral 650 1420 Other: Voiding Method Toilet Toilet Toilet # Voids 3 2 - Labs CBC & Chem 7: 03/01/19 10:30 02/28/19 07:38 Labs: Abnormal Lab Results - Last 24 Hours (Table) 02/28/19 02/28/19 02/28/19 Range/Units 11:13 16:34 20:19 WBC (3.8-10.6) k/uL Neutrophils # (1.3-7.7) k/uL POC Glucose (mg/dL) 132 H 104 H 127 H (75-99) mg/dL 03/01/19 Range/Units 10:30 WBC 14.7 H (3.8-10.6) k/uL Neutrophils # 10.7 H (1.3-7.7) k/uL POC Glucose (mg/dL) (75-99) mg/dL Microbiology - Last 24 Hours (Table) 02/27/19 12:11 Blood Culture - Preliminary Blood No Growth after 24 hours <Dino Villalta - Last Filed: 03/01/19 20:13> Subjective As above. Patient doing better today. His pain is improved. The CAT scan findings and the location of the suspected ischemic colitis discussed with the patient and his family in detail. When laid flat on the bed the patient does admit that his pain is more in the left midabdomen and possibly left upper quadrant at this time. He did have 2 stools today more solid in nature both slightly bloody. White blood cell count improved. Continue antibiotics. Stool cultures apparently sent. Objective - Vital Signs Vital signs: Vital Signs Temp 98.3 F 03/01/19 13:00 Pulse 65 03/01/19 13:00 Resp 16 03/01/19 13:00 BP 131/63 03/01/19 13:00 Pulse Ox 95 03/01/19 13:00 Intake & Output 03/01/19 03/01/19 03/02/19 06:59 18:59 06:59 Intake Total 1820 100 Balance 1820 100 Intake: Intake, IV Titration 400 100 Amount Levofloxacin 750Mg-D5w 150 Pmx 750 mg In Dextrose/ Water 1 150ml.bag @ 100 mls/hr IVPB Q24H [facility] Rx#: [id number] Sodium Chloride 0.9% 1, 250 000 ml @ 100 mls/hr IV . Q10H [facility] Rx#:[id number] metroNIDAZOLE-NS PMX 500 100 mg In Saline 1 100ml.bag @ 100 mls/hr IVPB Q8HR [facility] Rx#:[id number] Oral 1420 Other: Voiding Method Toilet Toilet # Voids 2 - Labs CBC & Chem 7: 03/01/19 10:30 02/28/19 07:38 Labs: Abnormal Lab Results - Last 24 Hours (Table) 02/28/19 03/01/19 03/01/19 Range/Units 20:19 10:30 17:13 WBC 14.7 H (3.8-10.6) k/uL Neutrophils # 10.7 H (1.3-7.7) k/uL POC Glucose (mg/dL) 127 H 104 H (75-99) mg/dL Microbiology - Last 24 Hours (Table) 03/01/19 09:09 Stool Culture - Preliminary Stool 02/27/19 12:11 Blood Culture - Preliminary Blood No Growth after 48 hours Assessment and Plan (1) Colitis Current Visit: Yes Status: Acute Code(s): K52.9 - NONINFECTIVE GASTROENTERITIS AND COLITIS, UNSPECIFIED SNOMED Code(s): 76265920
[2019-03-01 12:21] LABS: Glucose,Whole Blood 90 mg/dL (75-99)
[2019-03-01 17:14] LABS: Glucose,Whole Blood 104 mg/dL (75-99)
[2019-03-01 20:05] LABS: Glucose,Whole Blood 89 mg/dL (75-99)
[2019-03-01] MEDS: LEVOFLOXACIN 750MG-D5W PMX 750 MG in DEXTROSE/WATER 1 150ML.BAG IVPB SCH (21:10)
[2019-03-01] MEDS: CITALOPRAM HYDROBROMIDE 20 MG TAB PO SCH (21:11)
[2019-03-01] MEDS: ATORVASTATIN 20 MG TAB PO SCH (21:11)
[2019-03-01] MEDS: PANTOPRAZOLE 40 MG TABLET PO SCH (21:11)
[2019-03-01] MEDS: HYDROcodone/APAP 5-325MG 1 EACH TAB PO PRN (21:16)
[2019-03-01] MEDS: ALPRAZolam 0.5 MG TAB PO PRN (21:16)
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
[2019-03-01] MEDS: MELATONIN 5 MG TABLET PO PRN (21:36)
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
[2019-03-02 06:53] LABS: Glucose,Whole Blood 107 mg/dL (75-99)
[2019-03-02] MEDS: INSULIN ASPART (NovoLOG) 100 UNIT/ML VIAL SQ SCH ×4 (08:22→20:42)
[2019-03-02] MEDS: GABAPENTIN 400 MG CAP PO SCH ×3 (08:23→21:05)
[2019-03-02] MEDS: metroNIDAZOLE-NS PMX 500 MG in SALINE 1 100ML.BAG IVPB SCH ×2 (08:23)
[2019-03-02 09:33] LABS: Basophils # (A) 0.1 k/uL (0-0.2); Basophils % (A) 1 %; Eosinophils # (A) 0.3 k/uL (0-0.7); Eosinophils % (A) 3 %; HCT 45.6 % (39.0-53.0); HGB 14.6 gm/dL (13.0-17.5); Lymphocytes # (A) 1.5 k/uL (1.0-4.8); Lymphocytes % (A) 14 %; MCH 26.2 pg (25.0-35.0); MCHC 32.1 g/dL (31.0-37.0); MCV 81.5 fL (80.0-100.0); Mean Platelet Volume 7.5; Monocytes # (A) 0.6 k/uL (0-1.0); Monocytes % (A) 5 %; Neutrophils # (A) 8.4 k/uL (1.3-7.7); Neutrophils % (A) 77 %; Platelet Count 258 k/uL (150-450); RBC 5.59 m/uL (4.30-5.90); RDW 14.3 % (11.5-15.5)
[2019-03-02 12:14] LABS: Glucose,Whole Blood 90 mg/dL (75-99)
--- NOTE | 2019-03-02 13:00 | P.PN ---
<Poppy Crespo - Last Filed: 03/02/19 12:53> Subjective Progress Note Date: 03/02/19 CHIEF COMPLAINT: Abdominal pain HISTORY OF PRESENT ILLNESS: Patient examined at the bedside. Patient was advanced to full liquids for dinner yesterday. He reports after he ate dinner he had severe abdominal pain and cramping and required a dose of Miracle. He states his pain subsided and he slept well overnight without abdominal pain. He reports having breakfast this morning and again had some abdominal pain and cramping. This episode was less severe and he did not require pain medications. He denies nausea or vomiting. Reports nonbloody BM last night. Passing flatus this morning. No BM today. WBC 11.0 PHYSICAL EXAM: VITAL SIGNS: Reviewed. GENERAL: Well-developed in no acute distress. HEENT: No sclera icterus. Extraocular movements grossly intact. Moist buccal mucosa. Head is atraumatic, normocephalic. ABDOMEN: Soft. Nondistended. Tenderness to left lower quadrant-unchanged from yesterdays examination. NEUROLOGIC: Alert and oriented. Cranial nerves II through XII grossly intact. ASSESSMENT: 1. Abdominal pain 2. Colitis, suspect ischemic in nature PLAN: 1. Continue antibiotics 2. Monitor WBC 3. Patient would like to remain on full liquids. Will see how patient tolerates full liquid lunch 4. Await stool cultures Nurse practitioner note has been reviewed by physician. Signing provider agrees with the documented findings, assessment, and plan of care. Objective - Vital Signs Vital signs: Vital Signs Temp 97.7 F 03/02/19 05:00 Pulse 60 03/02/19 05:00 Resp 16 03/02/19 05:00 BP 127/80 03/02/19 05:00 Pulse Ox 96 03/02/19 05:00 Intake & Output 03/01/19 03/02/19 03/02/19 18:59 06:59 18:59 Intake Total 100 1030 Balance 100 1030 Intake: Intake, IV Titration 100 550 Amount Levofloxacin 750Mg-D5w 150 Pmx 750 mg In Dextrose/ Water 1 150ml.bag @ 100 mls/hr IVPB Q24H [facility] Rx#: [id number] Sodium Chloride 0.9% 1, 400 000 ml @ 100 mls/hr IV . Q10H [facility] Rx#:[id number] metroNIDAZOLE-NS PMX 500 100 mg In Saline 1 100ml.bag @ 100 mls/hr IVPB Q8HR [facility] Rx#:[id number] Oral 480 Other: Voiding Method Toilet Toilet # Voids 2 1 - Labs CBC & Chem 7: 03/02/19 08:27 02/28/19 07:38 Labs: Abnormal Lab Results - Last 24 Hours (Table) 03/01/19 03/02/19 03/02/19 Range/Units 17:13 06:47 08:27 WBC 11.0 H (3.8-10.6) k/uL Neutrophils # 8.4 H (1.3-7.7) k/uL POC Glucose (mg/dL) 104 H 107 H (75-99) mg/dL Microbiology - Last 24 Hours (Table) 03/01/19 09:09 Stool Culture - Preliminary Stool 02/27/19 12:11 Blood Culture - Preliminary Blood No Growth after 48 hours <Dino Villalta - Last Filed: 03/02/19 18:36> Subjective As above. Patient doing better at this time. Stool cultures pending. Continue antibiotics. Advance diet. Hopefully home tomorrow on oral antibiotics. Objective - Vital Signs Vital signs: Vital Signs Temp 98.4 F 03/02/19 12:46 Pulse 58 L 03/02/19 12:46 Resp 20 03/02/19 12:46 BP 139/82 03/02/19 12:46 Pulse Ox 96 03/02/19 12:46 Intake & Output 03/01/19 03/02/19 03/02/19 18:59 06:59 18:59 Intake Total 100 1030 240 Balance 100 1030 240 Intake: Intake, IV Titration 100 550 Amount Levofloxacin 750Mg-D5w 150 Pmx 750 mg In Dextrose/ Water 1 150ml.bag @ 100 mls/hr IVPB Q24H [facility] Rx#: [id number] Sodium Chloride 0.9% 1, 400 000 ml @ 100 mls/hr IV . Q10H [facility] Rx#:[id number] metroNIDAZOLE-NS PMX 500 100 mg In Saline 1 100ml.bag @ 100 mls/hr IVPB Q8HR [facility] Rx#:[id number] Oral 480 240 Other: Voiding Method Toilet Toilet # Voids 2 1 - Labs CBC & Chem 7: 03/02/19 08:27 02/28/19 07:38 Labs: Abnormal Lab Results - Last 24 Hours (Table) 03/02/19 03/02/19 03/02/19 Range/Units 06:47 08:27 17:23 WBC 11.0 H (3.8-10.6) k/uL Neutrophils # 8.4 H (1.3-7.7) k/uL POC Glucose (mg/dL) 107 H 156 H (75-99) mg/dL Microbiology - Last 24 Hours (Table) 02/27/19 12:11 Blood Culture - Preliminary Blood No Growth after 72 hours 03/01/19 09:09 Stool Culture - Preliminary Stool Assessment and Plan (1) Colitis Current Visit: Yes Status: Acute Code(s): K52.9 - NONINFECTIVE GASTROENTERITIS AND COLITIS, UNSPECIFIED SNOMED Code(s): 13270219
[2019-03-02 17:26] LABS: Glucose,Whole Blood 156 mg/dL (75-99)
[2019-03-02] MEDS: metroNIDAZOLE 500 MG TAB PO SCH ×2 (18:02→23:11)
[2019-03-02] MEDS ORDERED: LEVOFLOXACIN 750 MG TAB PO SCH (20:00)
[2019-03-02 20:05] LABS: Glucose,Whole Blood 131 mg/dL (75-99)
[2019-03-02] MEDS: ATORVASTATIN 20 MG TAB PO SCH (21:03)
[2019-03-02] MEDS: PANTOPRAZOLE 40 MG TABLET PO SCH (21:04)
[2019-03-02] MEDS: ALPRAZolam 0.5 MG TAB PO PRN (21:04)
[2019-03-02] MEDS: MELATONIN 5 MG TABLET PO PRN (21:04)
[2019-03-02] MEDS: CITALOPRAM HYDROBROMIDE 20 MG TAB PO SCH (21:04)
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
[2019-03-03 05:55] VITALS: RESP 16
[2019-03-03 07:04] LABS: Glucose,Whole Blood 114 mg/dL (75-99)
[2019-03-03] MEDS: INSULIN ASPART (NovoLOG) 100 UNIT/ML VIAL SQ SCH ×2 (07:40→11:35)
[2019-03-03] MEDS: GABAPENTIN 400 MG CAP PO SCH (07:49)
[2019-03-03] MEDS: metroNIDAZOLE 500 MG TAB PO SCH (07:50)
--- NOTE | 2019-03-03 09:46 | P.PN ---
<Poppy Crespo - Last Filed: 03/03/19 09:43> Subjective Progress Note Date: 03/03/19 CHIEF COMPLAINT: Abdominal pain HISTORY OF PRESENT ILLNESS: Patient examined at the bedside. Patient reports improvement in abdominal pain. Tolerating low fiber diet. PHYSICAL EXAM: VITAL SIGNS: Reviewed. GENERAL: Well-developed in no acute distress. HEENT: No sclera icterus. Extraocular movements grossly intact. Moist buccal mucosa. Head is atraumatic, normocephalic. ABDOMEN: Soft. Nondistended. Minimal tenderness to left lower quadrant NEUROLOGIC: Alert and oriented. Cranial nerves II through XII grossly intact. ASSESSMENT: 1. Abdominal pain 2. Colitis, suspect ischemic in nature PLAN: Patient is stable for discharge home today from a surgical standpoint. Patient may follow up with Dr. Villalta outpatient. Nurse practitioner note has been reviewed by physician. Signing provider agrees with the documented findings, assessment, and plan of care. Objective - Vital Signs Vital signs: Vital Signs Temp 97.8 F 03/03/19 05:00 Pulse 63 03/03/19 05:00 Resp 16 03/03/19 05:00 BP 107/72 03/03/19 05:00 Pulse Ox 98 03/03/19 05:00 Intake & Output 03/02/19 03/03/19 03/03/19 18:59 06:59 18:59 Intake Total 240 1080 Balance 240 1080 Intake: Oral 240 1080 Other: Voiding Method Toilet # Voids 1 3 - Labs CBC & Chem 7: 03/02/19 08:27 02/28/19 07:38 Labs: Abnormal Lab Results - Last 24 Hours (Table) 03/02/19 03/02/19 03/03/19 Range/Units 17:23 20:04 07:02 POC Glucose (mg/dL) 156 H 131 H 114 H (75-99) mg/dL Microbiology - Last 24 Hours (Table) 02/27/19 12:11 Blood Culture - Preliminary Blood No Growth after 72 hours <Dino Villalta - Last Filed: 03/03/19 19:07> Subjective As above. Patient discharged prior to my seeing him on rounds. Objective - Vital Signs Vital signs: Vital Signs Temp 98.1 F 03/03/19 12:02 Pulse 66 03/03/19 12:02 Resp 16 03/03/19 12:02 BP 104/70 05/17/19 12:02 Pulse Ox 94 L 03/03/19 12:02 Intake & Output 03/03/19 03/03/19 03/04/19 06:59 18:59 06:59 Intake Total 1080 Balance 1080 Intake: Oral 1080 Other: Voiding Method Toilet # Voids 3 - Labs CBC & Chem 7: 03/02/19 08:27 02/28/19 07:38 Labs: Abnormal Lab Results - Last 24 Hours (Table) 03/02/19 03/03/19 03/03/19 Range/Units 20:04 07:02 11:33 POC Glucose (mg/dL) 131 H 114 H 113 H (75-99) mg/dL Microbiology - Last 24 Hours (Table) 03/01/19 09:09 Stool Culture - Preliminary Stool 02/27/19 12:11 Blood Culture - Preliminary Blood No Growth after 96 hours Assessment and Plan (1) Colitis Status: Acute Code(s): K52.9 - NONINFECTIVE GASTROENTERITIS AND COLITIS, UNSPECIFIED SNOMED Code(s): 87870572
[2019-03-03 11:34] LABS: Glucose,Whole Blood 113 mg/dL (75-99)
[2019-03-03 12:03] VITALS: BP 104/70; PULSE 66; TEMP 98.1
--- NOTE | 2019-03-03 15:51 | P.DS ---
Providers Date of admission: 03/01/19 15:52 Expected date of discharge: 03/03/19 Attending physician: Jerri Iniguez Consults: 02/28/19 15:12 Consult Physician Routine Consulting Provider: Dino Villalta Consult Reason/Comments: Colitis Do you want consulting provider notified?: Already Contacted Primary care physician: uJstine Pauline [facility] Course: Patient is a 58-year-old male with a known history of hypertension, hyperlipidemia, diabetes type 2 non-insulin dependent, obstructive sleep apnea on CPAP at home, diverticulosis with history of previous radiculitis came to ER with complaints of abdominal pain and rectal bleeding for the past 3 days. Patient says that he has been having lower abdominal cramping type pain along with bright blood per rectum started around 2 AM on Wednesday. Patient came to ER with worsening symptoms. Abdominal pain is mainly cramping type mainly in the lower abdominal and sometimes diffuse abdominal pain. Patient does have subjective fever and chills at home.. Patient does have nausea and also vomiting. Denied any dysuria or hematuria. No complaints of chest pain or shortness of breath. Denied any recent [id number] pain medications including Motrin and Tylenol. We'll Patient did have previous diverticulitis about 6 months ago. [id number], WBC 17.5, UA negative for infection. CT abdomen. Showed correlate for colitis, follow-up suggested. Possible hepatic steatosis. There is hepatomegaly, diverticulosis . 02/28/2019 Patient denied any complaints of chest pain or shortness of breath. Still having abdominal pain mainly in the left lower quadrant area. No fever no chills. Leukocytosis with increased WBC count 22. Gen. surgery was consulted for further evaluation. Patient is being continued on antibiotics IV hydration and liquid diet as tolerated. Symptomatic management for nausea. No episodes of vomiting. No bowel movement today. 03/01/2019 Patient says that his abdominal pain is slightly improved today. Did have a bowel movement with minimal bright red blood streaks. Hemoglobin is fairly stable. Leukocytosis is improving to 14. Patient will be advanced with full liquid diet. General surgery is following. 03/02/2019 Patient says that he is having abdominal cramps after taking liquid diet. Otherwise patient is tolerating liquids and advance to full liquid diet now. No complaints of nausea vomiting. No bowel movement today. Otherwise no complaints of chest pain or shortness of breath. No other acute overnight issues. WBC trending down to 11 today. Patient was treated with IV antibiotics and surgery consultation was done; patient remained slow definite improvement without any complications; surgery saw patient and recommended transitioning to oral antibiotics and discharged home with another 10 day course of oral antibiotics and follow-up with surgery as outpatient Patient Condition at Discharge: Stable Plan - Discharge Summary Discharge Rx Participant: No New Discharge Prescriptions: New metroNIDAZOLE [Flagyl] 500 mg PO TID #30 tab Levofloxacin [Levaquin] 750 mg PO DAILY #10 tab Continue Gabapentin 800 mg PO TID Atorvastatin Calcium [Lipitor] 20 mg PO HS ALPRAZolam [Xanax] 0.5 mg PO TID PRN PRN Reason: Anxiety metFORMIN HCL [Glucophage] 500 mg PO BID amLODIPine [Norvasc] 10 mg PO HS Omeprazole 40 mg PO HS Citalopram Hydrobromide [CeleXA] 40 mg PO HS Melatonin 10 mg PO HS PRN PRN Reason: Insomnia Albuterol Inhaler [Ventolin Hfa Inhaler] 1 - 2 puff INHALATION RT-Q4H PRN PRN Reason: Shortness Of Breath Acetaminophen Tab [Tylenol] 1,000 mg PO Q6HR PRN PRN Reason: Pain HYDROcodone/APAP 5-325MG [[place] 5-325] 1 tab PO Q4HR PRN PRN Reason: Pain Sennosides-Docusate Sodium [Senokot-S] 1 tab PO HS Aspirin [Adult Low Dose Aspirin EC] 81 mg PO HS Discharge Medication List ALPRAZolam [Xanax] 0.5 mg PO TID PRN 01/18/19 [History] Atorvastatin Calcium [Lipitor] 20 mg PO HS 01/18/19 [History] Citalopram Hydrobromide [CeleXA] 40 mg PO HS 01/18/19 [History] Gabapentin 800 mg PO TID 01/18/19 [History] Omeprazole 40 mg PO HS 01/18/19 [History] amLODIPine [Norvasc] 10 mg PO HS 01/18/19 [History] metFORMIN HCL [Glucophage] 500 mg PO BID 01/18/19 [History] Albuterol Inhaler [Ventolin Hfa Inhaler] 1 - 2 puff INHALATION RT-Q4H PRN 01/24/19 [History] Melatonin 10 mg PO HS PRN 01/24/19 [History] Acetaminophen Tab [Tylenol] 1,000 mg PO Q6HR PRN 02/27/19 [History] Aspirin [Adult Low Dose Aspirin EC] 81 mg PO HS 02/27/19 [History] HYDROcodone/APAP 5-325MG [[place] 5-325] 1 tab PO Q4HR PRN 02/27/19 [History] Sennosides-Docusate Sodium [Senokot-S] 1 tab PO HS 02/27/19 [History] Levofloxacin [Levaquin] 750 mg PO DAILY #10 tab 03/03/19 [Rx] metroNIDAZOLE [Flagyl] 500 mg PO TID #30 tab 03/03/19 [Rx] Follow up Appointment(s)/Referral(s): Dino Villalta MD [Medical Doctor] - 1 Week Justine Carpenter MD [Primary Care Provider] - 1-2 days Activity/Diet/Wound Care/Special Instructions: low fiber diet Please make follow up appointments with Dr. Carpenter (hospital follow up) and Dr. Villalta (as advised). Discharge Disposition: HOME SELF-CARE
== END 2019-03-03 14:15 | disposition home or self-care (01) | DRG 395 ==
LOC: EC 10:42 → 3NMEDONC 13:22 → OBSVTOIN 03-01 15:52
PROVIDERS: ADMIT Internal Medicine; ATTEND Internal Medicine
DX: K55.039 Acute (reversible) ischemia of large intestine, extent unspecified (principal); R16.0 Hepatomegaly, not elsewhere classified; K76.0 Fatty (change of) liver, not elsewhere classified; E11.9 Type 2 diabetes mellitus without complications; E78.5 Hyperlipidemia, unspecified; F41.9 Anxiety disorder, unspecified; G47.33 Obstructive sleep apnea (adult) (pediatric); I10 Essential (primary) hypertension; J45.909 Unspecified asthma, uncomplicated; K21.9 Gastro-esophageal reflux disease without esophagitis; K57.90 Diverticulosis of intestine, part unspecified, without perforation or abscess without bleeding; H93.19 Tinnitus, unspecified ear; M43.10 Spondylolisthesis, site unspecified; E66.9 Obesity, unspecified; Z68.39 Body mass index [BMI] 39.0-39.9, adult; Z87.891 Personal history of nicotine dependence; Z79.82 Long term (current) use of aspirin; Z79.84 Long term (current) use of oral hypoglycemic drugs; Z79.899 Other long term (current) drug therapy; Z88.0 Allergy status to penicillin; Z91.041 Radiographic dye allergy status; Z82.49 Family history of ischemic heart disease and other diseases of the circulatory system; Z83.3 Family history of diabetes mellitus; Z82.3 Family history of stroke
CPT/HCPCS: 36415; 74177; 80048; 80053; 81003; 82150; 83605; 83690; 85025; 85610; 85730; 87040; 87045; 87046; 96361; 96374; 96375; 96376; 99285

== ENCOUNTER 2019-03-26 17:42 | Emergency (ER) | payer BC ==
[2019-03-26 17:54] VITALS: RESP 18
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
--- NOTE | 2019-03-26 19:14 | US ---
EXAMINATION TYPE: US venous doppler duplex LE RT DATE OF EXAM: 03/26/2019 6:32 PM COMPARISON: NONE CLINICAL HISTORY: Pain. Right lateral calf pain x 1 day SIDE PERFORMED: Right TECHNIQUE: The lower extremity deep venous system is examined utilizing real time linear array sonog valentine with graded compression, doppler sonography and color-flow sonography. VESSELS IMAGED: External Iliac Vein (EIV) Common Femoral Vein Deep Femoral Vein Greater Saphenous Vein * Femoral Vein Popliteal Vein Small Saphenous Vein * Proximal Calf Veins (* superficial vessels) Right Leg: Appears negative for DVT Scanned right lateral calf at patient's area of concern: no abnormalities seen at this time IMPRESSION: No evidence of deep venous thrombosis in the right leg. No pathologic fluid collection.
[2019-03-26 19:59] VITALS: BP 121/85; PULSE 64; TEMP 97.8
== END 2019-03-26 19:58 | disposition home or self-care (01) ==
LOC: EC 17:42
DX: M79.604 Pain in right leg (principal); M79.89 Other specified soft tissue disorders; J45.909 Unspecified asthma, uncomplicated; E11.9 Type 2 diabetes mellitus without complications; K21.9 Gastro-esophageal reflux disease without esophagitis; E78.5 Hyperlipidemia, unspecified; I10 Essential (primary) hypertension; G47.30 Sleep apnea, unspecified; Z99.89 Dependence on other enabling machines and devices; F41.9 Anxiety disorder, unspecified; Z87.891 Personal history of nicotine dependence; Z79.84 Long term (current) use of oral hypoglycemic drugs; Z79.82 Long term (current) use of aspirin; Z79.899 Other long term (current) drug therapy; Z88.0 Allergy status to penicillin; Z91.041 Radiographic dye allergy status; Z91.013 Allergy to seafood
CPT/HCPCS: 99283

== ENCOUNTER → 2019-06-13 | Outpatient (CLI) | payer BC ==
[2019-06-13 08:28] LABS: Appearance,Urine Clear (Clear); Bilirubin,Urine Negative (Negative); Blood,Urine Negative (Negative); Color,Urine Light Yellow; Glucose,Urine (UA) Negative (Negative); Ketones,Urine Negative (Negative); Leukocyte Esterase,Urine Negative (Negative); Nitrite,Urine Negative (Negative); Protein,Urine Negative (Negative); Specific Gravity,Urine 1.014 (1.001-1.035); Urobilinogen,Urine <2.0 mg/dL (<2.0)
[2019-06-13 08:42] LABS: Basophils # (A) 0.1 k/uL (0-0.2); Basophils % (A) 1 %; Eosinophils # (A) 0.5 k/uL (0-0.7); Eosinophils % (A) 4 %; HCT 47.3 % (39.0-53.0); HGB 15.9 gm/dL (13.0-17.5); Lymphocytes # (A) 1.4 k/uL (1.0-4.8); Lymphocytes % (A) 13 %; MCH 27.6 pg (25.0-35.0); MCHC 33.7 g/dL (31.0-37.0); MCV 81.9 fL (80.0-100.0); Mean Platelet Volume 7.3; Monocytes # (A) 0.8 k/uL (0-1.0); Monocytes % (A) 7 %; Neutrophils # (A) 8.2 k/uL (1.3-7.7); Neutrophils % (A) 73 %; Platelet Count 280 k/uL (150-450); RBC 5.77 m/uL (4.30-5.90); RDW 14.5 % (11.5-15.5); WBC 11.2 k/uL (3.8-10.6)
[2019-06-13 08:50] LABS: INR 0.9 (<1.2); Partial Thromboplastin Time 25.4 sec (22.0-30.0); Prothrombin Time 9.7 sec (9.0-12.0)
[2019-06-13 08:55] LABS: African American GFR (CKD) >90 (>60 ml/min/1.73 sqM); Anion Gap 9 mmol/L; Blood Urea Nitrogen 17 mg/dL (9-20); Calcium 9.6 mg/dL (8.4-10.2); Carbon Dioxide 27 mmol/L (22-30); Chloride 105 mmol/L (98-107); Glucose 109 mg/dL (74-99); Potassium 4.4 mmol/L (3.5-5.1); Sodium 141 mmol/L (137-145)
== END | disposition home or self-care (01) ==
LOC: LABPAT 07:46
PROVIDERS: ATTEND Orthopaedic Surgery Orthopaedic Surgery of the Spine
DX: Z01.812 Encounter for preprocedural laboratory examination (principal); M43.17 Spondylolisthesis, lumbosacral region
CPT/HCPCS: 36415; 80048; 81003; 85025; 85610; 85730; 87070

== ENCOUNTER → 2019-06-20 | Outpatient (CLI) | payer BC ==
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
== END | disposition home or self-care (01) ==
LOC: SLEEP 13:11
PROVIDERS: ATTEND Internal Medicine Critical Care Medicine
DX: G47.33 Obstructive sleep apnea (adult) (pediatric) (principal); E66.9 Obesity, unspecified; I10 Essential (primary) hypertension; E78.5 Hyperlipidemia, unspecified; F41.1 Generalized anxiety disorder; F10.21 Alcohol dependence, in remission; Z68.41 Body mass index [BMI] 40.0-44.9, adult; Z99.89 Dependence on other enabling machines and devices

== ENCOUNTER 2019-06-21 07:25 | Inpatient (IN) | payer BC ==
[2019-06-12 12:33] VITALS: BMI 41.3
[~2019-06-21 07:25] MED LIST changes: -ACETAMINOPHEN TAB 500 MG TAB PO ONE; +BACITRACIN 50,000 UNIT, POLYMYXIN B 500,000 UNIT in SODIUM CHLORIDE 0.9% IRRIGATIO 1,00... IRRIGATION ONE; -MELOXICAM 7.5 MG TAB PO ONE; -MIDAZOLAM (PF) 2 MG/2 ML VIAL IV PRN; +MIDAZOLAM 2 MG/2 ML VIAL IV PRN; +ONDANSETRON 4 MG/2 ML VIAL IVP ONE; -TRANEXAMIC ACID 1,000 MG in SODIUM CHLORIDE 0.9% 100 ML IVPB ONE; +ceFAZolin 3 GM in SODIUM CHLORIDE 0.9% 100 ML IVPB ONE; -ceFAZolin IN SWFI 2 GM/20 ML SYRINGE IVP ONE
[2019-06-21] MEDS ORDERED: LIDOCAINE 1% 20 ML VIAL (10MG/ML) FOR IV START INTRADERMA ONE (08:10)
[2019-06-21] MEDS: LACTATED RINGERS 1,000 ML IV SCH (08:10)
[2019-06-21 08:23] LABS: Glucose,Whole Blood 121 mg/dL (75-99)
[2019-06-21] MEDS ORDERED: SUCCINYLCHOLINE CHLORIDE 100 MG/5 ML SYR IV ONE (08:26)
[2019-06-21] MEDS ORDERED: MIDAZOLAM 2 MG/2 ML VIAL ONE (08:26)
[2019-06-21] MEDS ORDERED: diphenhydrAMINE 50 MG/ML 1 ML VIAL ONE (08:26)
[2019-06-21] MEDS ORDERED: ONDANSETRON 4 MG/2 ML VIAL ONE (08:26)
[2019-06-21] MEDS ORDERED: ROCURONIUM BROMIDE 10 MG/ML 10 ML VIAL IV ONE (08:26)
[2019-06-21] MEDS ORDERED: KETAMINE 10 MG/ML 20 ML VIAL ONE (08:26)
[2019-06-21] MEDS ORDERED: LIDOCAINE 1% INJ 10MG/ML (20 ML MDV) ONE (08:26)
[2019-06-21] MEDS ORDERED: fentaNYL (PF) 50 MCG/ML 2 ML AMP ONE (08:26)
[2019-06-21] MEDS ORDERED: PHENYLEPHRINE-0.9% NACL SYG 1 MG/10 ML SYRINGE ONE (08:26)
[2019-06-21] MEDS ORDERED: PROPOFOL 10 MG/ML 20 ML VIAL IV ONE (08:26)
[2019-06-21] MEDS ORDERED: GELATIN SPONGE,ABSORB (LARGE) 1 EACH SPONGE TOPICAL ONE (08:30)
[2019-06-21] MEDS ORDERED: THROMBIN (BOVINE) 5,000 UNIT VIAL TOPICAL ONE (08:30)
[2019-06-21] MEDS ORDERED: LIDOCAINE 0.5%-EPI 1:200,000 50 ML VIAL SQ ONE (08:30)
[2019-06-21] MEDS ORDERED: LACTATED RINGERS 1,000 ML IV ONE ×2 (09:45→10:50)
[2019-06-21] MEDS ORDERED: MAGNESIUM HYDROXIDE 2,400 MG/10 ML CUP PO PRN (11:18)
[2019-06-21] MEDS ORDERED: BENZOCAINE/MENTHOL LOZENG 1 EACH LOZENGE MUCOUS MEM PRN (11:18)
[2019-06-21] MEDS ORDERED: ONDANSETRON 4 MG/2 ML VIAL IVP PRN (11:18)
[2019-06-21] MEDS ORDERED: ALBUTEROL NEBULIZED 2.5 MG/3 ML INHALATION PRN (11:21)
--- NOTE | 2019-06-21 11:28 | P.OP ---
Date of Procedure: 06/21/19 Preoperative Diagnosis: Spondylolisthesis grade 3 at L5-S1, foraminal stenosis L5-S1, low back pain, lower extremity radiculopathy Postoperative Diagnosis: Same Anesthesia: GETA Pathology: none sent Condition: stable Disposition: PACU Description of Procedure: DESCRIPTION OF PROCEDURE(S): BRIEF OPERATIVE NOTE Preoperative Diagnosis: Spondylolisthesis grade 3 at L5-S1, foraminal stenosis L5-S1, low back pain, lower extremity radiculopathy Postoperative Diagnosis:Spondylolisthesis grade 3 at L5-S1, foraminal stenosis L5-S1, low back pain, lower extremity radiculopathy Procedure: Laminectomy and decompression L5-S1 Minimally invasive Posterior lateral decompression and fusion L5-S1 Minimally invasive Transforaminal lumbar interbody fusion for a 360 fusion L5-S1 Discectomy for decompression L5-S1 Placement of interbody graft L5-S1 Local autogenous bone grafting Harvesting of bone marrow aspirate for use as graft supplement from L5 vertebral body Use of bone graft extenders Surgeon: Dr. Alvares Soil Chemist: Gabo HERNANDEZ who is present throughout the entire the case persistence during positioning, dissection, exposure, visualization, and all crucial elements of the case as well as closure. Anesthesia: General anesthesia per Dr. Parkinson Estimated blood loss: Approximately 100 mL Complications: None apparent Components implanted: K2M minimally invasive [place] pedicle screw system with use of 4 screws measuring 6.5 mm in diameter with 2 rods measuring 35 mm and one [place] interbody cage with 1 large osteal amp sponge and 30 mL of DBX bone fibers to supplemental local autogenous bone graft and bone marrow aspirate graft Disposition: To recovery room in good stable condition. OPERATIVE INDICATIONS The patient has had long-standing issues in their lower back and lower extremities. He was found have a grade 3 dynamic spondylolisthesis at L5-S1 which correlated well with his low back and lower extremity symptoms. He is having worsening symptoms despite aggressive conservative care and was having progressive pain in his back and lower extremities. The patient has been through conservative treatment. We discussed various treatment options including surgery, and the patient wishes to proceed with surgery We discussed the risk, patient's alternatives and benefits of surgery including but not limited to, risk of bleeding risk of infection, risk of need for further surgery, risk of decreased, loss of motion, muscle function, malunion nonunion, hardware failure, nerve damage, paralysis, heart attack, blindness and . OPERATIVE SUMMARY After discussing all the risks, patient alternatives and benefits at length, the patient elected to proceed with surgical intervention, signed informed consent, and presented for their procedure. The patient was seen and examined in the preoperative holding area and the surgical site was marked. The patient was given antibiotics and brought to the operating room. The patient was sedated and intubated by anesthesia in standard fashion. The patient was positioned on to the operating room table in a prone position on the appropriate frame which was well-padded and well molded. We were careful to pad any bony prominences and pressure points. We were careful to maintain the patient's cervical spine and good neutral alignment and position throughout. The patient was prepped and draped in a normal standard fashion. An appropriate timeout and keystone protocol performed. We were able to proceed with the surgery. The local wound area was infiltrated with local anesthetic. I was able utilize C-arm guidance to establish appropriate position over the pedicles bilaterally at the appropriate levels at L5-S1. With the appropriate levels confirmed was able to make small stab incisions over the appropriate pedicle sites bilaterally. Utilizing C-arm in his house able to establish a Jamshidi needle over the lateral aspect of the pedicle and advanced the trocar into the pedicle being careful not to breech superiorly inferiorly medially or laterally. Position was confirmed regularly with AP and lateral images on C- arm. I was able to establish the trocar into the pedicle appropriately into the posterior aspect of the vertebral body bilaterally at the appropriate levels at L5-S1. This was done at each of the pedicle positions and each of the vertebrae. At L5 on the right was able to withdraw approximately 20 mL of bone marrow aspirate from the trocar and vertebral body to be used later in the case for bone graft supplementation. I was able place the guidewire into the trocar and into the vertebral body appropriately under C-arm guidance. Dissection was taken down over the wire to the appropriate starting position for the screw placed. The appropriate length screw was chosen, threaded over the guidewire and screwed appropriately into the pedicle and vertebral body under C-arm guidance in excellent alignment and position with good bony purchase. This is done at each of the screw sites at the appropriate levels at L5 and at L S1 bilaterally. With the screws intact I extended the incision to connect the screw hole sites on the most symptomatic side on the right. I dissected down to establish access over the pars and lamina to the base of the spinous process. I was able to expose the facet joint. The capsule the facet was taken down and showed some facet arthrosis at the joint as well as a pars defect. I was able to use a combination of curettes and Kerr[place] rongeurs and a high-speed drill to take down the facet joint and do a facetectomy. Partial laminectomy was also performed. I was able get excellent foraminal decompression and central decompression with undermining across midline to perform a laminectomy centrally and contralaterally. I was able get good central decompression. The ligamentum flavum was taken down to further decompress centrally and at bilateral neural foramen. I was able to expose the disc space and visualize the traversing nerve root. Note was made of some disc protrusion at the level causing further compression of the nerve root at L5-S1. I was able to establish a annulotomy at the appropriate level protecting soft tissue and neural structures. Note was made of some disc desiccation at the disc. I performed a complete discectomy with accommodation of curettes and rasps and scrapers. I was able get good endplate preparation at the disc space. I sized for the appropriate size interbody spacer protecting the soft tissue and neural structures. The wound was copiously irrigated and suctioned dry. There is no evidence of any dural tear or leak. We were able to get good reduction of the listhesis at L5-S1. I was able to pack the disc space with local autogenous bone graft as well as a small amount of bone graft which was also placed into the interbody cage itself. Protecting the soft tissue structures and neural structures I was able place the interbody cage in good alignment and good position with good fit and fill at the interbody space at L5-S1. Position was confirmed with C-arm guidance. Good hemostasis maintained. There is no evidence of any dural tear or leak. The wound was irrigated and suctioned dry. With the hardware intact, intraoperative C-arm imaging was again taken which showed good alignment and position of the hardware at the appropriate levels at L5-S1. We were then able to measure, contour and place the rods and appropriate hardware bilaterally. I was able to place capcrews, tighten them down, and torque them with the torque screwdriver appropriately. This gave excellent reduction of the listhesis at L5-S1 and good stability within the construct. With this intact I was able to place the local autogenous bone graft with additional bone graft enhancer as necessary into the posterior lateral gutters over the decorticated transverse processes. The remainder of the bone graft was placed over the facet joint on the contralateral side after taking down the facet joint capsule. With the bone graft intact, a stable construct, and good decompression at the appropriate levels, we were able to proceed with closure. Good hemostasis was maintained. There is no evidence of dural tear or leak. The fascia was closed for a watertight closure. he subcuticular tissue was closed with absorbable suture. The wound was cleaned and dried and dressed with the appropriate dressing. The drapes were broken down. The patient was gently rolled back onto their hospital bed being careful to maintain their cervical spine and good neutral alignment and position. They were woken up by anesthesia, extubated, and brought to the recovery room in good stable condition. The patient will be admitted to the hospital for appropriate postoperative care, medical management and monitoring. We will continue to follow them closely about the postoperative course.
[2019-06-21] MEDS: HYDROmorphone 0.5 MG/0.5 ML SYRINGE IVP PRN ×3 (11:58→15:15)
--- NOTE | 2019-06-21 12:01 | FL ---
EXAMINATION TYPE: FL guidance operating room DATE OF EXAM: 06/21/2019 CLINICAL HISTORY: Minimally invasive lumbar fusion for low back pain. TECHNIQUE: Fluoroscopy. COMPARISON: None. FINDINGS: Fluoroscopic guidance was provided during pain relief procedure performed by Dr. Alvares . A total of 1.21 minutes of fluoroscopic time was utilized during the procedure and 6 spot images are acquired. Images acquired shows needle localization of the lumbar spine at multiple levels. IMPRESSION: As Above.
[2019-06-21 12:21] LABS: Glucose,Whole Blood 115 mg/dL (75-99)
[2019-06-21] MEDS ORDERED: SODIUM CHLORIDE 0.9% 1,000 ML IV ONE (12:51)
[2019-06-21] MEDS: HYDROcodone/APAP 5-325MG 1 EACH TAB PO PRN ×3 (14:04→23:09)
[2019-06-21] MEDS: SODIUM CHLORIDE 0.9% 1,000 ML IV SCH (15:38)
[2019-06-21] MEDS: ceFAZolin 3 GM in SODIUM CHLORIDE 0.9% 100 ML IVPB SCH ×2 (16:42→23:10)
[2019-06-21] MEDS: GABAPENTIN 400 MG CAP PO SCH ×2 (16:45→20:36)
[2019-06-21 17:13] LABS: Glucose,Whole Blood 113 mg/dL (75-99)
[2019-06-21] MEDS ORDERED: IPRATROPIUM-ALBUTEROL 3 ML NEB INHALATION PRN (18:20)
[2019-06-21] MEDS: HYDROmorphone 1 MG/ML 1 ML SYRINGE IVP PRN (19:35)
[2019-06-21 20:22] LABS: Glucose,Whole Blood 118 mg/dL (75-99)
[2019-06-21] MEDS: ATORVASTATIN 20 MG TAB PO SCH (20:36)
[2019-06-21] MEDS: CITALOPRAM HYDROBROMIDE 20 MG TAB PO SCH (20:36)
[2019-06-21] MEDS: ASPIRIN 81 MG PO SCH (20:36)
[2019-06-21] MEDS: amLODIPine 10 MG TAB PO SCH (20:36)
[2019-06-21] MEDS: PANTOPRAZOLE 40 MG TABLET PO SCH (20:37)
[2019-06-21] MEDS: metFORMIN 500 MG TAB PO SCH (20:37)
[2019-06-21] MEDS: MELATONIN 5 MG TABLET PO PRN (20:41)
[2019-06-21] MEDS: IPRATROPIUM-ALBUTEROL 3 ML NEB INHALATION SCH (21:19)
[2019-06-21] MEDS: ACETAMINOPHEN TAB 325 MG TAB PO PRN (21:48)
--- NOTE | 2019-06-21 22:20 | XR ---
EXAM: XR Chest, 1 View CLINICAL HISTORY: ITS.REASON XR Reason: fever TECHNIQUE: Frontal view of the chest. COMPARISON: Chest radiographs dated 01/18/2019. FINDINGS: Lungs: Unremarkable. No consolidation. Pleural space: Unremarkable. No pneumothorax. Heart: Unremarkable. No cardiomegaly. Mediastinum: Unremarkable. Bones/joints: Unremarkable. IMPRESSION: No acute cardiopulmonary abnormality.
[2019-06-22] MEDS: LACTATED RINGERS 1,000 ML IV SCH (00:47)
[2019-06-22] MEDS: HYDROmorphone 1 MG/ML 1 ML SYRINGE IVP PRN ×2 (01:01→09:14)
[2019-06-22] MEDS: SODIUM CHLORIDE 0.9% 1,000 ML IV SCH ×2 (01:13→15:49)
[2019-06-22] MEDS: HYDROcodone/APAP 5-325MG 1 EACH TAB PO PRN ×3 (05:53→18:06)
--- NOTE | 2019-06-22 05:58 | CONS ---
CONSULTATION DATE OF SERVICE: 06/21/2019 REASON FOR CONSULTATION: Advice regarding diabetes mellitus, multiple other medical issues requested by Dr. Alvares. HISTORY OF PRESENT ILLNESS: This is a 59-year-old gentleman with a past medical history of asthma, diabetes mellitus, GERD, hypertension, hyperlipidemia, history of DJD, history of hernia repair, history of anxiety being followed by Dr. Carpenter in the outpatient setting underwent laminectomy decompression L5-S1 for spondylolisthesis grade 3 at L5-S1 and foraminal stenosis. The patient is complaining of slight cough at this time. There is no history of any fever, rigors. No history of headache, loss of consciousness or seizures at this time. PAST MEDICAL HISTORY: History of asthma, diabetes, GERD, hypertension, hyperlipidemia, history of DJD, history of sleep apnea. MEDICATIONS: Home medications are: 1. Metformin 500 mg p.o. b.i.d. 2. Norvasc 10 mg q.h.s. 3. Omeprazole 40 mg p.o. q.h.s. 4. Melatonin 10 mg q.h.s. p.r.n. 5. Ibuprofen 400 mg q.8 p.r.n. 6. Gabapentin 800 mg t.i.d. 7. Iron sulfate 325 mg p.o. daily. 8. Celexa 40 mg q.h.s. 9. Calcium 600 mg p.o. daily. 10.Lipitor 20 mg q.h.s. 11.Aspirin 81 mg q.h.s. 12.Vitamin C 1000 mg p.o. daily. 13.Ventolin HFA 1 to 2 puffs q.4 p.r.n. 14.Xanax 0.5 t.i.d. p.r.n. ALLERGIES: Allergies are FISH, PENICILLIN, IODINATED CONTRAST DYES. FAMILY HISTORY: History of CVA, TIA, diabetes, hypertension. SOCIAL HISTORY: Previous history of smoking. No history of current smoking or alcohol intake. REVIEW OF SYSTEMS: ENT: No diminished hearing or diminished vision. CARDIOVASCULAR SYSTEM: As mentioned earlier. RESPIRATORY SYSTEM: As mentioned earlier. GI: No nausea. : No dysuria. NERVOUS SYSTEM: No numbness or weakness. ALLERGY/IMMUNOLOGY: No asthma or hay fever. MUSCULOSKELETAL: As mentioned earlier. HEMATOLOGY/ONCOLOGY: No history of anemia. ENDOCRINE: Diabetes mellitus. CONSTITUTIONAL: As mentioned earlier. DERMATOLOGY: Negative. RHEUMATOLOGY: Negative. PSYCHIATRY: As mentioned earlier. PHYSICAL EXAMINATION: The patient is alert and oriented x3. Pulse 63, blood pressure 101/55, respiration 16, temperature normal, pulse ox 98% on 2 L. HEENT: Conjunctivae normal. Oral mucosa moist. Neck is no jugular venous distention. No carotid bruit. No lymph node enlargement. CARDIOVASCULAR: S1, S2 muffled. No S3, no S4. RESPIRATORY: Breath sounds diminished in the base. A few scattered rhonchi and crackles in the right lower base present. ABDOMEN: Soft, nontender, obese. No mass palpable. LEGS: No edema. No swelling. EXAMINATION OF BACK: Status post surgery. NERVOUS SYSTEM: Higher function as mentioned earlier. Moves all 4 limbs. No focal motor or sensory deficit. LYMPHATICS: No lymphadenopathy of the neck, axillae or groin. SKIN: No ulcer, rash or bleeding. JOINTS: No active deforming arthropathy. LABS: Labs are Accu-Cheks 115, 113. Otherwise, the previous preop labs hematology was normal. Coags are normal and chemistry showed glucose 113. ASSESSMENT: 1. Status post laminectomy and decompression L5-S1 for spondylolisthesis grade 3 at L5- S1. 2. History of asthma, chronic obstructive pulmonary disease. 3. Diabetes mellitus type 2. 4. Gastroesophageal reflux disease. 5. Hypertension. 6. Hyperlipidemia. 7. History of musculoskeletal disorder. 8. History of sleep apnea. 9. History of hernia repair. 10.History of degenerative joint disease. 11.History of anxiety. 12.Remote history of nicotine dependence. 13.Remote history of ETOH. 14.Obesity with body mass index 41.8. RECOMMENDATIONS AND DISCUSSION: This 59-year-old gentleman presented with multiple medical issues, at this time I recommend to continue the current medications and continue symptomatic treatment. Otherwise, resume the home medications. I would also recommend incentive spirometry, DVT prophylaxis. I would also recommend a course of bronchodilators also. We will follow the patient closely with you and patient may be asked to follow up with Dr. Carpenter closely after discharge. Thank you Dr. Alvares for letting us participate in the care of this patient. MMODL / IJN: [id number] /
[2019-06-22 07:06] LABS: Glucose,Whole Blood 102 mg/dL (75-99)
[2019-06-22 07:21] LABS: Basophils # (A) 0.1 k/uL (0-0.2); Basophils % (A) 0 %; Eosinophils % (A) 0 %; HCT 39.7 % (39.0-53.0); HGB 13.2 gm/dL (13.0-17.5); Lymphocytes # (A) 1.2 k/uL (1.0-4.8); Lymphocytes % (A) 6 %; MCH 26.9 pg (25.0-35.0); MCHC 33.2 g/dL (31.0-37.0); MCV 81.1 fL (80.0-100.0); Mean Platelet Volume 7.3; Monocytes # (A) 1.8 k/uL (0-1.0); Monocytes % (A) 9 %; Neutrophils % (A) 84 %; Platelet Count 237 k/uL (150-450); RBC 4.89 m/uL (4.30-5.90); RDW 14.2 % (11.5-15.5); WBC 20.4 k/uL (3.8-10.6)
[2019-06-22 07:30] LABS: Calcium 8.3 mg/dL (8.4-10.2); Potassium 3.9 mmol/L (3.5-5.1)
--- NOTE | 2019-06-22 07:51 | P.PN ---
Progress Note - Text Progress Note Date: 06/22/19 Postoperative day #1 Patient is seen and examined today at bedside. The patient has some pain around the surgical site as expected. Pain is being controlled with medication. He did have a fever last night he says to 103 but he is not having further fever since then. He denies any shortness breath or chest pain. Physical Exam Afebrile with stable vital signs Abdomen is soft nontender. Chest has good excursion deep and space expiration The incision site is clean dry and intact. No erythema there is no purulence. The dressing is intact without any purulence. Extremities have not had neurologic change from prior to surgery. Calves and thighs were soft nontender without evidence of DVT. He has sustained dorsal flexion plantar flexion and EHL intact A chest x-ray last night does not show any acute process. His white blood count was high but that could be reactive with his surgery. Currently he is afebrile Assessment/Plan Postoperative day #1 status post minimally invasive decompression and fusion at L5-S1 for his spondylolisthesis with stenosis Patient is progressing as expected from the surgery in terms of his pain and he is starting to mobilize fairly well on his own. We will continue to increase the patient's mobilization with therapy. He is not showing any acute infectious process but did have a high temperature last night which seems to be resolving appropriately. We'll continue to follow this closely. His preliminary test results do not show any acute process on chest x-ray. I will keep him on IV antibiotics fornow We will continue pain control with oral or IV medications. We'll continue to follow patient closely.
[2019-06-22] MEDS: IPRATROPIUM-ALBUTEROL 3 ML NEB INHALATION SCH ×3 (08:03→19:41)
[2019-06-22] MEDS: SENNOSIDES-DOCUSATE SODIUM 1 EACH TAB PO SCH (09:04)
[2019-06-22] MEDS: CALCIUM CARBONATE 500 MG CHEWABLE PO SCH (09:04)
[2019-06-22] MEDS: ASCORBIC ACID 500 MG TAB PO SCH (09:04)
[2019-06-22] MEDS: GABAPENTIN 400 MG CAP PO SCH ×3 (09:04→20:41)
[2019-06-22] MEDS: FERROUS SULFATE 325 MG TAB PO SCH (09:04)
[2019-06-22] MEDS: metFORMIN 500 MG TAB PO SCH ×2 (09:04→20:41)
[2019-06-22] MEDS: ceFAZolin 3 GM in SODIUM CHLORIDE 0.9% 100 ML IVPB SCH ×3 (09:05→23:00)
[2019-06-22 11:49] LABS: Glucose,Whole Blood 134 mg/dL (75-99)
[2019-06-22 13:12] LABS: Appearance,Urine Clear (Clear); Bilirubin,Urine Negative (Negative); Blood,Urine Negative (Negative); Color,Urine Light Yellow; Glucose,Urine (UA) Negative (Negative); Ketones,Urine Negative (Negative); Leukocyte Esterase,Urine Negative (Negative); Nitrite,Urine Negative (Negative); PH, Urine 5.5 (5.0-8.0); Protein,Urine Negative (Negative); Urobilinogen,Urine <2.0 mg/dL (<2.0)
[2019-06-22] MEDS: ACETAMINOPHEN TAB 325 MG TAB PO PRN (14:13)
[2019-06-22 16:39] LABS: Glucose,Whole Blood 127 mg/dL (75-99)
--- NOTE | 2019-06-22 20:05 | PN ---
PROGRESS NOTE DATE OF SERVICE: 06/22/2019. This 59-year-old gentleman who was admitted after back surgery is being closely monitored at this time. The patient was having some mild fever with a T-max of 103.6 yesterday. The patient has been started on cefazolin at this time. The patient's white count is elevated to 20.4. A chest x-ray was done yesterday which I reviewed personally. It showed evidence of some atelectasis in the lower areas. The patient is being closely monitored at this time. Repeat labs have been ordered for tomorrow. The patient is on bronchodilators as well. Past medical history reviewed. REVIEW OF SYSTEMS: CARDIOVASCULAR SYSTEM: No angina, palpitations. RESPIRATORY SYSTEM: As mentioned earlier. GI: As mentioned earlier. : No dysuria or retention. NERVOUS SYSTEM: No numbness, weakness. CURRENT MEDICATIONS: Reviewed. They include: 1. Tylenol 650 q.6 p.r.n. 2. [place] 5 mg q.4 p.r.n. 3. DuoNeb t.i.d. and p.r.n. 4. Xanax 0.5 t.i.d. 5. Norvasc 10 mg at bedtime. 6. Vitamin C 1000 mg daily. 7. Aspirin 81 mg daily. 8. Lipitor 20 mg at bedtime. 9. Cepacol. 10.Tums. 11.Cefazolin 3 grams IV q.8. 12.Celexa. 13.Iron sulfate. 14.Neurontin. 15.Dilaudid. 16.Lactated Ringers. 17.Milk of Magnesia. 18.Glucophage. 19.Protonix. 20.Senokot. PHYSICAL EXAMINATION: Patient is alert, oriented x3. Pulse is 79, blood pressure 120/76, respiration 17, temperature 99.5, pulse ox 97% on room air. HEENT: Conjunctivae normal. Oral mucosa moist. NECK: No jugular venous distention. No carotid bruit. No lymph node enlargement. CARDIOVASCULAR SYSTEM: S1, S2 muffled. RESPIRATORY SYSTEM: Breath sounds diminished at the bases. A few scattered rhonchi and crackles. ABDOMEN: Soft, non-tender. No mass palpable. LEGS: No edema. No swelling. NERVOUS SYSTEM: No focal deficit. EXAMINATION OF THE BACK: Status post surgery. LABS: WBC 20.4, hemoglobin 13.2. Glucose 100. Calcium is 8.3. ASSESSMENT: 1. Status post laminectomy and decompression, L5-S1, for spondylolisthesis, grade 3, at L5-S1. 2. History of asthma, chronic obstructive pulmonary disease. 3. Fever; possible atelectasis. 4. Diabetes mellitus, type 2. 5. Gastroesophageal reflux disease. 6. Hypertension. 7. Hyperlipidemia. 8. History of musculoskeletal disorder. 9. History of sleep apnea. 10.History of hernia repair. 11.History of degenerative joint disease. 12.History of anxiety. 13.Remote history of nicotine dependence. 14.Remote history of ethanol. 15.Obesity with body mass index of 41.8. RECOMMENDATIONS AND DISCUSSION: I recommend to continue current medications, continue with the monitoring, symptomatic treatment. Continue with the bronchodilators. Continue with the empiric antibiotics. Cultures have been obtained. Labs, incentive spirometry, DVT prophylaxis. Further recommendations to follow. MMODL / IJN: [id number] /
[2019-06-22] MEDS: ATORVASTATIN 20 MG TAB PO SCH (20:41)
[2019-06-22] MEDS: amLODIPine 10 MG TAB PO SCH (20:41)
[2019-06-22] MEDS: ASPIRIN 81 MG PO SCH (20:41)
[2019-06-22] MEDS: CITALOPRAM HYDROBROMIDE 20 MG TAB PO SCH (20:41)
[2019-06-22] MEDS: PANTOPRAZOLE 40 MG TABLET PO SCH (20:41)
[2019-06-22] MEDS: HYDROmorphone 0.5 MG/0.5 ML SYRINGE IVP PRN (20:42)
[2019-06-22 21:28] LABS: Glucose,Whole Blood 130 mg/dL (75-99)
[2019-06-23] MEDS: ALPRAZolam 0.5 MG TAB PO PRN ×2 (01:39→22:41)
[2019-06-23] MEDS: MELATONIN 5 MG TABLET PO PRN ×2 (01:39→22:40)
[2019-06-23] MEDS: HYDROcodone/APAP 5-325MG 1 EACH TAB PO PRN ×3 (01:42→22:40)
[2019-06-23] MEDS: SODIUM CHLORIDE 0.9% 1,000 ML IV SCH ×2 (04:06→19:11)
[2019-06-23 06:48] LABS: Glucose,Whole Blood 128 mg/dL (75-99)
[2019-06-23] MEDS ORDERED: CYCLOBENZAPRINE 10 MG TAB PO PRN (07:57)
[2019-06-23] MEDS: IPRATROPIUM-ALBUTEROL 3 ML NEB INHALATION SCH ×3 (07:58→20:00)
--- NOTE | 2019-06-23 08:00 | P.PN ---
Progress Note - Text Progress Note Date: 06/23/19 Postoperative day #2 Patient is seen and examined today at bedside. The patient has some pain around the surgical site as expected. Pain is being controlled with medication. He is having some spasm around his low back and towards gluteus. He has been able to move around well and is tolerating his regular diet. He did have fever to 101 yesterday again. Physical Exam T-max 101 last night with stable vital signs Abdomen is soft nontender. Chest has good excursion deep and space expiration The incision site is clean dry and intact. No erythema there is no purulence. The incision site looks clear Extremities have not had neurologic change from prior to surgery. He has sustained dorsiflexion plantarflexion and EHL intact Calves and thighs were soft nontender without evidence of DVT. Assessment/Plan Postoperative day #2 status post minimally invasive decompression and fusion for his grade 3 spondylolisthesis with stenosis and lower extremity radiculopathy Patient is progressing as expected from the surgery. He has had a temperature again last night and medicine is monitoring this closely he again had a blood draw and we'll follow that closely. We will continue to increase the patient's mobilization with therapy. He is having some spasm we will start some Flexeril as needed. He is also requesting to bump up his [place] to 7.5 than 5 and I think that is appropriate. We will continue pain control with oral or IV medications. We'll continue to follow patient closely.
[2019-06-23] MEDS: HYDROmorphone 1 MG/ML 1 ML SYRINGE IVP PRN ×2 (08:36→14:00)
[2019-06-23] MEDS: ceFAZolin 3 GM in SODIUM CHLORIDE 0.9% 100 ML IVPB SCH (08:38)
[2019-06-23] MEDS: metFORMIN 500 MG TAB PO SCH ×2 (08:42→21:11)
[2019-06-23] MEDS: FERROUS SULFATE 325 MG TAB PO SCH (08:42)
[2019-06-23] MEDS: SENNOSIDES-DOCUSATE SODIUM 1 EACH TAB PO SCH (08:42)
[2019-06-23] MEDS: GABAPENTIN 400 MG CAP PO SCH ×3 (08:42→21:11)
[2019-06-23] MEDS: ASCORBIC ACID 500 MG TAB PO SCH (08:42)
[2019-06-23] MEDS: CALCIUM CARBONATE 500 MG CHEWABLE PO SCH (08:42)
[2019-06-23 10:02] LABS: Basophils # (A) 0.1 k/uL (0-0.2); Basophils % (A) 0 %; Eosinophils # (A) 0.1 k/uL (0-0.7); Eosinophils % (A) 0 %; HCT 37.2 % (39.0-53.0); HGB 12.2 gm/dL (13.0-17.5); Lymphocytes # (A) 0.9 k/uL (1.0-4.8); Lymphocytes % (A) 6 %; MCH 26.9 pg (25.0-35.0); MCHC 32.7 g/dL (31.0-37.0); MCV 82.4 fL (80.0-100.0); Mean Platelet Volume 8.5; Monocytes # (A) 0.9 k/uL (0-1.0); Monocytes % (A) 5 %; Neutrophils # (A) 14.9 k/uL (1.3-7.7); Neutrophils % (A) 88 %; Platelet Count 211 k/uL (150-450); RBC 4.51 m/uL (4.30-5.90); RDW 14.8 % (11.5-15.5)
[2019-06-23 11:50] LABS: Glucose,Whole Blood 125 mg/dL (75-99)
[2019-06-23] MEDS: ACETAMINOPHEN TAB 325 MG TAB PO PRN (14:00)
--- NOTE | 2019-06-23 14:17 | CDI ---
Documentation Clarification Form Date: 06/23/2019 2:07:34 PM From: Rachel Shah CCS, CCDS Admit Date: 06/21/2019 7:25:00 AM Patient Name: Bello Russ Visit Number: [id number] Discharge Date: ATTENTION: The Clinical Documentation Specialists (CDI) and [facility] Coding Staff appreciate your assistance in clarifying documentation. Please respond to the clarification below the line at the bottom and electronically sign. The CDI & [facility] Coding staff will review the response and follow-up if needed. Please note: Queries are made part of the Legal Health Record. If you have any questions, please contact the author of this message via ITS. Dr. Troy Banks: Per the 06/22 medical management progress note: "Fever; possible atelectasis." Patients Admitting Diagnosis: Admitted for elective L5-S1 fusion, laminectomy & decompression. Post-Operative Diagnosis: Same. Developed fever, T max 103.6 on 06/22 & 101 on 06/23. History/Risk Factors: Asthma, COPD, DM II, Sleep apnea, Obesity w/BMI 41.8, Hypertension, Hyperlipidemia. Former smoker. Clinical Indicators: As above. VS: T 97.6, R 18, PO 92 6Lnc, reduced to 3Lnc on 06/21. Subsequently put on CPAP w/temp 102.3. Currently PO 97 RA. CXR: Evidence of some atelectasis in lower areas. Treatment: INH Albuterol, IV Cefazolin, IV Dilaudid, po [place] In order to accurately reflect this patients severity of illness, please clarify if the post-operative diagnosis of atelectasis is: An expected post-procedural or post-surgical condition, please specify cause. An unexpected post-procedural or post-surgical condition related to surgical care (a complication of care) An unexpected post-procedural or post-surgical condition, related to the patients underlying medical comorbidities Other, please specify ____ Unable to determine (Last Revision: January 2019) An expected post-procedural or post-surgical condition, atelectasis MTDD
--- NOTE | 2019-06-23 14:26 | CDI ---
Documentation Clarification Form Date: 06/23/2019 2:18:00 PM From: Rachel OakesShahELICEO acevedo, CCDS Admit Date: 06/21/2019 7:25:00 AM Patient Name: Bello Russ Visit Number: [id number] Discharge Date: ATTENTION: The Clinical Documentation Specialists (CDI) and [facility] Coding Staff appreciate your assistance in clarifying documentation. Please respond to the clarification below the line at the bottom and electronically sign. The CDI & [facility] Coding staff will review the response and follow-up if needed. Please note: Queries are made part of the Legal Health Record. If you have any questions, please contact the author of this message via ITS. Dr. Troy Banks: Asthma is documented in the medical management consult & subsequent progress notes. Per the 06/22 medical management progress note: "Fever; possible atelectasis." Patients Admitting Diagnosis: Admitted for elective L5-S1 fusion, laminectomy & decompression. Post-Operative Diagnosis: Same. Developed fever, T max 103.6 on 06/22 & 101 on 06/23. History/Risk Factors: Asthma, COPD, DM II, Sleep apnea, Obesity w/BMI 41.8, Hypertension, Hyperlipidemia. Former smoker. Clinical Indicators: As above. VS: T 97.6, R 18, PO 92 6Lnc, reduced to 3Lnc on 06/21. Subsequently put on CPAP w/temp 102.3. Currently PO 97 RA. CXR: Evidence of some atelectasis in lower areas. Treatment: INH Albuterol, IV Cefazolin, IV Dilaudid, po [place] In your professional opinion, can you please further specify the following, if known? With or Without: Acute Exacerbation Acute lower respiratory infection COPD (specify with or without exacerbation) Chronic obstructive bronchitis Other, please specify ___ Unable to determine Severity o Mild intermittent o Mild persistent o Moderate persistent o Severe persistent o Other, please specify ____ o Unable to determine Form or Type o Cough variant o Childhood o Exercise induced bronchospasm o Extrinsic allergic o Idiosyncratic o Intrinsic nonallergic o Late-onset o Mixed o Other, please specify____ o Unable to determine (Last Revision: January 2018) COPD (specify with or without exacerbation) MTDD
[2019-06-23 17:07] LABS: Glucose,Whole Blood 122 mg/dL (75-99)
[2019-06-23] MEDS: CLINDAMYCIN 600 MG in DEXTROSE 5% IN WATER 50 ML IVPB SCH ×2 (17:19)
[2019-06-23] MEDS: LACTATED RINGERS 1,000 ML IV SCH (19:11)
--- NOTE | 2019-06-23 21:00 | PN ---
PROGRESS NOTE DATE OF SERVICE: 06/23/2019 This 59-year-old gentleman who was admitted after laminectomy was running a fever. The patient is on empiric antibiotics. The patient is feeling slightly tired. T-max 101.6 at this time. The cultures are negative so far. Otherwise, Orthopedic Surgery is following the patient closely at this time. Past medical history reviewed. REVIEW OF SYSTEMS: CARDIOVASCULAR SYSTEM: No angina, palpitations. RESPIRATORY SYSTEM: As mentioned earlier. GI: As mentioned earlier. : No dysuria or retention. NERVOUS SYSTEM: No numbness, weakness. CURRENT MEDICATIONS: Reviewed. They include: 1. Tylenol p.r.n. 2. [place] 5 mg q.4 p.r.n. 3. DuoNeb q.i.d. and p.r.n. 4. Xanax 0.5 t.i.d. 5. Norvasc 10 mg at bedtime. 6. Aspirin 81 mg. 7. Lipitor 20 mg p.o. daily. 8. Cepacol. 9. Tums. 10.Celexa 40 mg. 11.Clindamycin 600 mg IV q.8. 12.Flexeril. 13.Iron sulfate. 14.Neurontin. 15.Dilaudid. 16.Lactated Ringers. 17.Glucophage. 18.Protonix. 19.Senokot-S. PHYSICAL EXAMINATION: Patient is alert, oriented x3. Pulse is 90, blood pressure 102/61, respirations 17, temperature 101.6, pulse ox 97% on room air. HEENT: Conjunctivae normal. NECK: No jugular venous distention. CARDIOVASCULAR SYSTEM: S1, S2 muffled. RESPIRATORY SYSTEM: Breath sounds diminished at the bases. A few scattered rhonchi. No crackles. ABDOMEN: Soft, non-tender. No mass palpable. LEGS: No edema. No swelling. NERVOUS SYSTEM: No focal deficit. EXAMINATION OF THE BACK: Status post surgery. LAB INVESTIGATIONS: WBC 17, hemoglobin 12.2. Glucose 125. ASSESSMENT: 1. Status post laminectomy and decompression, L5-S1, for spondylolisthesis, grade 3, at L5-S1. 2. History of asthma, chronic obstructive pulmonary disease. 3. Fever; possible atelectasis. 4. Diabetes mellitus, type 2. 5. Gastroesophageal reflux disease. 6. Hypertension. 7. Increased white count. 8. Hyperlipidemia. 9. History of musculoskeletal disorder. 10.History of sleep apnea. 11.History of hernia repair. 12.History of degenerative joint disease. 13.History of anxiety. 14.Remote history of nicotine dependence. 15.History of ethanol remotely. 16.Obesity with body mass index 41.8. RECOMMENDATIONS AND DISCUSSION: I recommend to continue current medications, continue with the monitoring, symptomatic treatment. The patient has been started on clindamycin IV. I would recommend continuing the antibiotics and follow the cultures, which are negative so far. The chest x-ray and UA also did not reveal any abnormality. Will closely monitor with Orthopedic Surgery. Further recommendations to follow. MMODL / IJN: [id number] /
[2019-06-23 21:11] LABS: Glucose,Whole Blood 125 mg/dL (75-99)
[2019-06-23] MEDS: amLODIPine 10 MG TAB PO SCH (21:11)
[2019-06-23] MEDS: ASPIRIN 81 MG PO SCH (21:11)
[2019-06-23] MEDS: ATORVASTATIN 20 MG TAB PO SCH (21:11)
[2019-06-23] MEDS: PANTOPRAZOLE 40 MG TABLET PO SCH (21:11)
[2019-06-23] MEDS: CITALOPRAM HYDROBROMIDE 20 MG TAB PO SCH (21:11)
[2019-06-24] MEDS: CLINDAMYCIN 600 MG in DEXTROSE 5% IN WATER 50 ML IVPB SCH ×8 (00:13→23:37)
[2019-06-24] MEDS: HYDROcodone/APAP 5-325MG 1 EACH TAB PO PRN ×3 (03:05→15:16)
[2019-06-24] MEDS: SODIUM CHLORIDE 0.9% 1,000 ML IV SCH (05:39)
--- NOTE | 2019-06-24 06:56 | P.DS ---
Providers Date of admission: 06/21/19 07:25 Attending physician: Viry Alvares Consults: 06/21/19 11:18 Consult Physician Routine Consulting Provider: Troy Banks Consult Reason/Comments: Medical management Do you want consulting provider notified?: Yes Primary care physician: Justine Carpenter Hospital Course: The patient presented on the day of admission as per their operative note. He grade 3 spondylolisthesis L5-S1 with stenosis and radiculopathy. He underwent his decompression fusion at L5-S1 minimally invasively as per his operative note. He feels his legs are doing well he still has some sciatic issues across the top his buttocks but nothing going on his legs. His pain adequately controlled at his back. He does not feel sick nauseous or does not have any chest pain shortness of breath. He is passing gas but has not yet had a bowel movement. He has been able to her in the halls. Physical Exam He had a temperature with T-max at 100.5 overnight. Otherwise his vital signs are stable. The incision site is clean dry and intact. There is no erythema no drainage. There is no purulence no evidence of infection. There is no active drainage at the wound site there is no significant erythema or fluid collection Abdomen soft and nontender. Chest has good excursion with deep inspiration and expiration. The patient has active and passive range of motion intact at the upper and lower extremities. There is no acute change in neurologic status. He has sustained dorsal flexion plantar flexion and EHL intact. His thighs and calves are soft nontender. Negative [place]. Hospital Course The patient has been making good progress postoperatively. They have completed the prophylactic antibiotics without any signs or symptoms of infection. He had a temperature 100.5 overnight. He remains afebrile throughout the day. His labs not shown any growth. The patient has been able to advance their diet, and is tolerating diet adequately. The pain was initially controlled with IV medications and is now controlled appropriately with oral medications. The patient has been able to increase their mobilization. Despite the patient's overhead temperatures he is making good progress. His last night was only 100.5 but is still slightly elevated. This may be due to atelectasis at this point as he does not have any obvious source of infectious process. The patient has progressed appropriately. I think they are in good stable condition for discharge today from an orthopedic standpoint if he is cleared with medicine. If he is cleared with medicine today then They will be sent home with appropriate prescriptions. I answered their questions to the best of my ability in a language that they can understand and they are agreeable with the plan. They will follow up as directed in approximately 2 weeks or sooner if he is having any problems. Patient Condition at Discharge: Good Plan - Discharge Summary Discharge Rx Participant: No New Discharge Prescriptions: New HYDROcodone/APAP 5-325MG [[place] 5] 1 - 2 each PO Q6HR PRN 7 Days #56 tab PRN Reason: Moderate To Severe Pain HYDROcodone/APAP 7.5-325MG [[place] 7.5-325] 1 - 2 tab PO Q6HR PRN 7 Days #56 tab PRN Reason: Moderate To Severe Pain No Action Gabapentin 800 mg PO TID Atorvastatin Calcium [Lipitor] 20 mg PO HS ALPRAZolam [Xanax] 0.5 mg PO TID PRN PRN Reason: Anxiety metFORMIN HCL [Glucophage] 500 mg PO BID amLODIPine [Norvasc] 10 mg PO HS Omeprazole 40 mg PO HS Citalopram Hydrobromide [CeleXA] 40 mg PO HS Melatonin 10 mg PO HS PRN PRN Reason: Insomnia Albuterol Inhaler [Ventolin Hfa Inhaler] 1 - 2 puff INHALATION RT-Q4H PRN PRN Reason: Shortness Of Breath Aspirin [Adult Low Dose Aspirin EC] 81 mg PO HS Ferrous Sulfate [Feosol] 325 mg PO DAILY Ibuprofen [Motrin Ib] 400 mg PO Q8H PRN PRN Reason: Pain Calcium Carbonate [Calcium] 600 mg PO DAILY Ascorbic Acid [Vitamin C] 1,000 mg PO DAILY Discharge Medication List ALPRAZolam [Xanax] 0.5 mg PO TID PRN 01/18/19 [History] Atorvastatin Calcium [Lipitor] 20 mg PO HS 01/18/19 [History] Citalopram Hydrobromide [CeleXA] 40 mg PO HS 01/18/19 [History] Gabapentin 800 mg PO TID 01/18/19 [History] Omeprazole 40 mg PO HS 01/18/19 [History] amLODIPine [Norvasc] 10 mg PO HS 01/18/19 [History] metFORMIN HCL [Glucophage] 500 mg PO BID 01/18/19 [History] Albuterol Inhaler [Ventolin Hfa Inhaler] 1 - 2 puff INHALATION RT-Q4H PRN 01/24 [History] Melatonin 10 mg PO HS PRN 01/24/19 [History] Aspirin [Adult Low Dose Aspirin EC] 81 mg PO HS 02/27/19 [History] Ascorbic Acid [Vitamin C] 1,000 mg PO DAILY 03/26/19 [History] Calcium Carbonate [Calcium] 600 mg PO DAILY 03/26/19 [History] Ferrous Sulfate [Feosol] 325 mg PO DAILY 03/26/19 [History] Ibuprofen [Motrin Ib] 400 mg PO Q8H PRN 03/26/19 [History] HYDROcodone/APAP 5-325MG [[place] 5] 1 - 2 each PO Q6HR PRN 7 Days #56 tab 06/22/19 [Rx] HYDROcodone/APAP 7.5-325MG [[place] 7.5-325] 1 - 2 tab PO Q6HR PRN 7 Days #56 tab 06/23/19 [Rx] Follow up Appointment(s)/Referral(s): Viry Alvares DO [Doctor of Osteopathic Medicine] - 07/07/19 9:30 am (With Lawrence Peralta) Justine Carpenter MD [Primary Care Provider] - 06/28/19 10:30 am Activity/Diet/Wound Care/Special Instructions: Keep site clean. May shower with waterproof Tegaderm intact. Do not soak in a tub. On June 25, patient May remove dressing and then may shower with area uncovered. Leave Steri-Strips intact and allow them to fray off on their own. May ambulate as tolerated. Avoid heavy or rigorous activity. No repetitive bending twisting or lifting. No overhead work. [employer] will mail a glucometer to patient - [phone] Discharge Disposition: HOME SELF-CARE
[2019-06-24 07:09] LABS: Glucose,Whole Blood 118 mg/dL (75-99)
[2019-06-24] MEDS: IPRATROPIUM-ALBUTEROL 3 ML NEB INHALATION SCH ×3 (08:23→20:36)
[2019-06-24] MEDS: GABAPENTIN 400 MG CAP PO SCH ×3 (10:02→23:37)
[2019-06-24] MEDS: FERROUS SULFATE 325 MG TAB PO SCH (10:02)
[2019-06-24] MEDS: CALCIUM CARBONATE 500 MG CHEWABLE PO SCH (10:02)
[2019-06-24] MEDS: metFORMIN 500 MG TAB PO SCH ×2 (10:02→22:42)
[2019-06-24] MEDS: SENNOSIDES-DOCUSATE SODIUM 1 EACH TAB PO SCH (10:02)
[2019-06-24] MEDS: LACTATED RINGERS 1,000 ML IV SCH (10:04)
[2019-06-24] MEDS: ASCORBIC ACID 500 MG TAB PO SCH (10:06)
[2019-06-24 12:11] LABS: Glucose,Whole Blood 106 mg/dL (75-99)
[2019-06-24 17:13] LABS: Glucose,Whole Blood 146 mg/dL (75-99)
[2019-06-24] MEDS: HYDROmorphone 1 MG/ML 1 ML SYRINGE IVP PRN (17:39)
--- NOTE | 2019-06-24 18:34 | PN ---
PROGRESS NOTE DATE OF SERVICE: 06/24/2019. This 59-year-old gentleman who was admitted after laminectomy was running a fever last night, also. The patient had a fever. No chest pain. No palpitation. EXAM: Alert and oriented x3. The pulse is 92, blood pressure is 105/54, respiration 17, temperature 99.2, pulse ox 91 percent on room air. HEENT: Conjunctivae normal. NECK: No jugular venous distention. CARDIOVASCULAR: S1, S2 muffled. RESPIRATORY: Breath sounds diminished in the bases. No rhonchi. No crackles. ABDOMEN is soft, nontender. LEGS are no edema. No swelling. CENTRAL NERVOUS SYSTEM: No focal deficits. LABS: WBC 17, hemoglobin 12.2. ASSESSMENT: 1. Status post laminectomy decompression L5-S1 spondylolysis with grade 3 L5-S1. 2. History of asthma/chronic obstructive pulmonary disease. 3. Fever, possible atelectasis. 4. Diabetes type 2. 5. Gastroesophageal reflux disease. 6. Hypertension. 7. History of increased WBC. 8. Hyperlipidemia. 9. History of musculoskeletal disorder. 10.History of sleep apnea. 11.History of hernia repair. 12.History of degenerative joint disease. 13.History of anxiety. 14.Remote history of nicotine dependence. 15.History of EtOH remotely. 16.Obesity, body mass index of 41.8. RECOMMENDATIONS AND DISCUSSION: Recommend to continue current medications, continue to monitor. Symptomatic treatment. Otherwise, at this time, I recommend continue to monitor. I would also recommend infectious disease evaluation and continue to monitor. Further recommendations to follow. Discussed with Ortho. LAVONNE / TRIPN: [id number] /
[2019-06-24 22:18] LABS: Glucose,Whole Blood 116 mg/dL (75-99)
[2019-06-24] MEDS: amLODIPine 10 MG TAB PO SCH (22:41)
[2019-06-24] MEDS: CITALOPRAM HYDROBROMIDE 20 MG TAB PO SCH (22:41)
[2019-06-24] MEDS: MELATONIN 5 MG TABLET PO PRN (22:42)
[2019-06-24] MEDS: ASPIRIN 81 MG PO SCH (22:42)
[2019-06-24] MEDS: ALPRAZolam 0.5 MG TAB PO PRN (22:42)
[2019-06-24] MEDS: ATORVASTATIN 20 MG TAB PO SCH (22:42)
[2019-06-24] MEDS: PANTOPRAZOLE 40 MG TABLET PO SCH (22:42)
[2019-06-25] MEDS: HYDROcodone/APAP 5-325MG 1 EACH TAB PO PRN ×3 (01:02→13:34)
[2019-06-25 07:27] LABS: Glucose,Whole Blood 116 mg/dL (75-99)
[2019-06-25 08:11] LABS: Basophils % (A) 0 %; Eosinophils # (A) 0.2 k/uL (0-0.7); Eosinophils % (A) 2 %; HCT 34.8 % (39.0-53.0); HGB 11.7 gm/dL (13.0-17.5); Lymphocytes # (A) 1.4 k/uL (1.0-4.8); Lymphocytes % (A) 13 %; MCH 27.7 pg (25.0-35.0); MCHC 33.6 g/dL (31.0-37.0); MCV 82.3 fL (80.0-100.0); Monocytes # (A) 0.6 k/uL (0-1.0); Monocytes % (A) 6 %; Neutrophils # (A) 8.5 k/uL (1.3-7.7); Neutrophils % (A) 78 %; Platelet Count 257 k/uL (150-450); RBC 4.23 m/uL (4.30-5.90); RDW 15.3 % (11.5-15.5); WBC 10.8 k/uL (3.8-10.6)
[2019-06-25] MEDS: IPRATROPIUM-ALBUTEROL 3 ML NEB INHALATION SCH ×3 (08:24→20:25)
[2019-06-25] MEDS: metFORMIN 500 MG TAB PO SCH ×2 (09:18→20:48)
[2019-06-25] MEDS: FERROUS SULFATE 325 MG TAB PO SCH (09:18)
[2019-06-25] MEDS: ASCORBIC ACID 500 MG TAB PO SCH (09:18)
[2019-06-25] MEDS: SENNOSIDES-DOCUSATE SODIUM 1 EACH TAB PO SCH (09:18)
[2019-06-25] MEDS: GABAPENTIN 400 MG CAP PO SCH ×3 (09:18→22:52)
[2019-06-25] MEDS: CALCIUM CARBONATE 500 MG CHEWABLE PO SCH (09:19)
[2019-06-25] MEDS: CLINDAMYCIN 600 MG in DEXTROSE 5% IN WATER 50 ML IVPB SCH ×4 (09:19→10:40)
[2019-06-25] MEDS: LACTATED RINGERS 1,000 ML IV SCH (09:31)
[2019-06-25 11:58] LABS: Glucose,Whole Blood 127 mg/dL (75-99)
[2019-06-25] MEDS: INSULIN ASPART (NovoLOG) 100 UNIT/ML VIAL SQ SCH ×3 (12:47→20:41)
--- NOTE | 2019-06-25 13:38 | P.PN ---
Progress Note - Text Progress Note Date: 06/25/19 Postoperative day #4 Patient is seen and examined today at bedside. The patient has some pain around the surgical site as expected, but is becoming more comfortable in doing adequately with oral pain medication Pain is being controlled with medication. He has been able to eat regular diet and has had bowel movements which have been normal for him. He is voiding freely. He denies any chest pain. Physical Exam Temperature max last night was 99.5. Abdomen is soft nontender. Chest has good excursion deep and space expiration The incision site is clean dry and intact. No erythema there is no purulence. Extremities have not had neurologic change from prior to surgery. He has sustained dorsal flexion plantar flexion and EHL intact Calves and thighs were soft nontender without evidence of DVT. Negative Carlos's Assessment/Plan Postoperative day #4 status post minimally invasive depression and fusion L5-S1 for spondylolisthesis with stenosis Patient is progressing somewhat slowly as he has been having some temperatures overnight. His cultures have all been negative thus far. He is oriented to have a chest x-ray which I think is appropriate. Infectious disease has been counseled that by medicine and I think that is appropriate as well. We will continue to monitor him and if he makes some further progress by tomorrow. He is continuing his prophylactic antibiotics We will continue to increase the patient's mobilization with therapy. We will continue pain control with oral or IV medications. We'll continue to follow patient closely.
--- NOTE | 2019-06-25 13:56 | XR ---
EXAMINATION TYPE: XR chest 2V DATE OF EXAM: 06/25/2019 COMPARISON: NONE HISTORY: Shortness of breath and fever TECHNIQUE: Frontal and lateral views of the chest are obtained. FINDINGS: New interstitial prominence is seen throughout. No focal consolidation, pleural effusion o r pneumothorax. Cardiomediastinal silhouette is stable and upper limits of normal. Mild degenerative changes of the spine. Slight pulmonary hyperinflation and flattening the diaphragms is likely on the basis of COPD. Old fracture deformity of the distal right clavicle. IMPRESSION: Diffuse interstitial prominence may be on the basis of mild fluid overload or atypical p neumonia.
[2019-06-25] MEDS ORDERED: LEVOFLOXACIN 500MG-D5W PMX 500 MG in DEXTROSE/WATER 1 100ML.BAG IVPB STA (15:53)
[2019-06-25 16:46] LABS: Glucose,Whole Blood 114 mg/dL (75-99)
[2019-06-25] MEDS: ACETAMINOPHEN TAB 325 MG TAB PO PRN (16:55)
[2019-06-25] MEDS ORDERED: FUROSEMIDE 10 MG/ML 4 ML VIAL IV STA (17:48)
[2019-06-25 18:03] LABS: ALT 88 U/L (21-72); AST 82 U/L (17-59); African American GFR (CKD) >90 (>60 ml/min/1.73 sqM); Alkaline Phosphatase 182 U/L (38-126); Anion Gap 10 mmol/L; Blood Urea Nitrogen 12 mg/dL (9-20); Calcium 8.1 mg/dL (8.4-10.2); Carbon Dioxide 24 mmol/L (22-30); Chloride 103 mmol/L (98-107); Glucose 137 mg/dL (74-99); Potassium 3.6 mmol/L (3.5-5.1); Sodium 137 mmol/L (137-145); Total Bilirubin 0.7 mg/dL (0.2-1.3); Total Protein 5.6 g/dL (6.3-8.2)
--- NOTE | 2019-06-25 20:05 | PN ---
PROGRESS NOTE DATE OF SERVICE: 06/25/2019 This 59-year-old gentleman admitted after laminectomy, had some fever. The patient also complaining of some shortness of breath at this time. The patient on empiric antibiotics. Multiple consultants are following the patient closely. The chest x-ray done today showed evidence of some fluid overload with diffuse opacities. The white count is improved to 10.8 today. PAST MEDICAL HISTORY: Reviewed. REVIEW OF SYSTEMS: CARDIOVASCULAR SYSTEM: No angina or palpitations. RESPIRATION: As mentioned earlier. GASTROINTESTINAL: No nausea or vomiting. no dysuria. CENTRAL NERVOUS SYSTEM: No numbness or weakness. CURRENT MEDICATIONS: Reviewed and include: 1. Tylenol 650 q.6h p.r.n. 2. [place] 5 mg. 3. DuoNeb q.i.d. and p.r.n. 4. Xanax 0.5 t.i.d. p.r.n. 5. Norvasc 10 mg p.o. daily. 6. Vitamin C 1000 daily. 7. Aspirin 81 mg p.o. daily. 8. Lipitor 20 mg q.h.s. 9. Cepacol. 10.TUMS 500 mg daily. 11.Celexa 40 mg q.h.s. 12.Flexeril 10 mg t.i.d. p.r.n. 13.Iron sulfate 320 mg b.i.d. 14.Neurontin 800 mg t.i.d. 15.Dilaudid 0.5 mg q.4 p.r.n. 16.NovoLog a.c. and q.h.s. 17.Lactated Ringers. 18.Levaquin 500 mg daily. 19.Milk of magnesia. 20.Melatonin. 21.Glucophage 500 mg b.i.d. 22.Protonix. 23.Senokot. PHYSICAL EXAM: Patient is alert, oriented x3. Pulse 71. Blood pressure 105/64, respirations 16, temperature 99.7, pulse ox 94% on BiPAP. HEENT: Conjunctivae normal. NECK: No JVD. CARDIOVASCULAR: S1, S2 muffled. RESPIRATION: Breath sounds diminished in the bases. Bilateral scattered rhonchi and crackles. ABDOMEN: Soft, obese, nontender. LEGS: No edema. No swelling. NERVOUS SYSTEM: No focal deficits. LABS: WBC 10.8, hemoglobin 11.7. ASSESSMENT: 1. Status post laminectomy decompression L5-S1 spondylolysis with grade 3 L5-S1. 2. History of asthma, chronic obstructive pulmonary disease. 3. Interstitial shadows in the chest x-ray. 4. Fever, possible atelectasis, improving. 5. Diabetes type 2. 6. Gastroesophageal reflux disease. 7. Hypertension. 8. History of increased WBC. 9. Hyperlipidemia. 10.History of musculoskeletal disorder. 11.History of sleep apnea. 12.History of hernia repair. 13.History of degenerative joint disease. 14.History of anxiety. 15.Remote history of nicotine dependence. 16.History of EtOH remotely. 17.Obesity with body mass index of 41.8. RECOMMENDATIONS AND DISCUSSION: Recommend to continue current medications, management and symptomatic treatment. Otherwise, at this time, I recommend to continue the current medications. I would also recommend a dose of Lasix and limit the fluid intake and continue to monitor. Ensure oxygenation. Incentive spirometry. Continue the DVT prophylaxis. Further recommendations to follow. MMODL / IJN: [id number] /
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
[2019-06-25 20:39] LABS: Glucose,Whole Blood 104 mg/dL (75-99)
[2019-06-25] MEDS: amLODIPine 10 MG TAB PO SCH (20:48)
[2019-06-25] MEDS: CITALOPRAM HYDROBROMIDE 20 MG TAB PO SCH (20:48)
[2019-06-25] MEDS: PANTOPRAZOLE 40 MG TABLET PO SCH (20:49)
[2019-06-25] MEDS: ASPIRIN 81 MG PO SCH (20:49)
[2019-06-25] MEDS: ATORVASTATIN 20 MG TAB PO SCH (22:52)
[2019-06-25] MEDS: ALPRAZolam 0.5 MG TAB PO PRN (22:58)
[2019-06-25] MEDS: MELATONIN 5 MG TABLET PO PRN (22:58)
[2019-06-26] MEDS: ACETAMINOPHEN TAB 325 MG TAB PO PRN (03:55)
[2019-06-26 07:19] LABS: Basophils # (A) 0.1 k/uL (0-0.2); Basophils % (A) 1 %; Eosinophils # (A) 0.1 k/uL (0-0.7); Eosinophils % (A) 1 %; HCT 36.9 % (39.0-53.0); HGB 12.5 gm/dL (13.0-17.5); Lymphocytes # (A) 1.1 k/uL (1.0-4.8); Lymphocytes % (A) 10 %; MCH 27.4 pg (25.0-35.0); MCHC 33.9 g/dL (31.0-37.0); MCV 80.9 fL (80.0-100.0); Mean Platelet Volume 7.1; Monocytes # (A) 0.6 k/uL (0-1.0); Monocytes % (A) 6 %; Neutrophils # (A) 8.4 k/uL (1.3-7.7); Neutrophils % (A) 80 %; Platelet Count 282 k/uL (150-450); RBC 4.56 m/uL (4.30-5.90); RDW 14.3 % (11.5-15.5); WBC 10.4 k/uL (3.8-10.6)
[2019-06-26 07:44] LABS: Glucose,Whole Blood 138 mg/dL (75-99)
[2019-06-26] MEDS: INSULIN ASPART (NovoLOG) 100 UNIT/ML VIAL SQ SCH ×2 (08:00→13:15)
[2019-06-26] MEDS: IPRATROPIUM-ALBUTEROL 3 ML NEB INHALATION SCH ×2 (08:31→12:41)
--- NOTE | 2019-06-26 08:41 | P.DS ---
Providers Date of admission: 06/21/19 07:25 Expected date of discharge: 06/26/19 Attending physician: Viry Alvares Consults: 06/21/19 11:18 Consult Physician Routine Consulting Provider: Troy Banks Consult Reason/Comments: Medical management Do you want consulting provider notified?: Yes 06/24/19 15:13 Consult Physician Routine Consulting Provider: Camacho iGllespie Consult Reason/Comments: fever Do you want consulting provider notified?: Yes Primary care physician: Justine Carpenter - Delores Diagnosis(es) (1) Lumbar foraminal stenosis Current Visit: Yes Status: Acute (2) Lumbar back pain with radiculopathy affecting lower extremity Current Visit: Yes Status: Acute (3) Fever Current Visit: Yes Status: Acute (4) Spondylolisthesis at L5-S1 level Current Visit: Yes Status: Acute (5) Hypertension Current Visit: Yes Status: Acute (6) Hyperlipidemia Current Visit: Yes Status: Acute (7) Type 2 diabetes mellitus Current Visit: Yes Status: Acute Hospital Course: This is a pleasant 59-year-old male who presented with grade 3 spondylolisthesis at L5-S1, L5-S1 foraminal stenosis, low back pain, and lower extremity radiculopathy who and failed outpatient conservative therapy. He was admitted for an L5-S1 minimally invasive posterior row decompression and fusion with transforaminal lumbar interbody fusion. The patient tolerated the procedure well. He was initially progressing slowly postoperatively but has made some improvement in regards to his low back pain and ambulation. He does continue to have lower extremity radiculopathy symptoms. Over the past few days he has been experiencing fever and chills with some low-grade fevers. He is continuing be seen by medicine. Consultation has been performed by infectious disease who felt his symptoms were most likely stemming from my pulmonary cause. He was previously on clindamycin which has been discontinued and he has been started on levofloxacin. Initially his medication was started on IV and has been converted to oral starting at [address] Patient states Dr. Gillespie in infectious disease was planning to discharge him on an oral antibiotic medication. Patient does not feel his symptoms have significant change since being seen him yesterday. He does feel stable and would be ready for discharge home today if cleared by medicine, cleared by infectious disease, and discharged with the appropriate antibiotic medication as prescribed by infectious disease. Condition on day of discharge stable. Patient will be discharged home. Patient was cleared preoperatively for surgery by Dr. Carpenter. Patient currently denies any nausea or vomiting. He continues to experience low-grade fever and experience some chills. Patient is eating and voiding freely without difficulty. Patient may shower without a dressing at this time. Patient should refrain from driving until at least after their first follow-up appointment in the office. Patient should avoid excessive bending, lifting, and twisting; no lifting greater than 10 pounds. Patient also has a medical history which includes hyperlipidemia, hypertension, and type 2 diabetes. Prescription for [place] 7.5 mg/325 mg take 1-2 tabs every 6 needed for pain, dispensed #56 has been prescribed. An "Opioid Start Talking" form has been signed by the patient and provider. Patient may take his medication as prescribed as needed for control his symptoms. He should avoid anti- inflammatories of the next 6 weeks postoperatively. He may resume his other previous he prescribed home medications. Physical Exam on day of discharge: Patient is awake, alert, and oriented 3 Vital signs up here to be stable Patient is currently standing at the bedside and breathing without evidence of labored breathing No signs or symptoms of DVT; no calf pain Extensor hallucis longus, plantarflexion, and dorsiflexion positive sustained bilateral lower extremities Dressing is removed and physical examination; some mild erythema around the surgical sites and around the skin edges at the placement locations of tape No active drainage from the surgical sites No significant bruising around the surgical sites Procedures: L5-S1 minimally invasive posterior lateral decompression fusion with transforaminal lumbar interbody fusion Patient Condition at Discharge: Stable Plan - Discharge Summary Discharge Rx Participant: No New Discharge Prescriptions: New HYDROcodone/APAP 5-325MG [[place] 5] 1 - 2 each PO Q6HR PRN 7 Days #56 tab PRN Reason: Moderate To Severe Pain HYDROcodone/APAP 7.5-325MG [[place] 7.5-325] 1 - 2 tab PO Q6HR PRN 7 Days #56 tab PRN Reason: Moderate To Severe Pain No Action Gabapentin 800 mg PO TID Atorvastatin Calcium [Lipitor] 20 mg PO HS ALPRAZolam [Xanax] 0.5 mg PO TID PRN PRN Reason: Anxiety metFORMIN HCL [Glucophage] 500 mg PO BID amLODIPine [Norvasc] 10 mg PO HS Omeprazole 40 mg PO HS Citalopram Hydrobromide [CeleXA] 40 mg PO HS Melatonin 10 mg PO HS PRN PRN Reason: Insomnia Albuterol Inhaler [Ventolin Hfa Inhaler] 1 - 2 puff INHALATION RT-Q4H PRN PRN Reason: Shortness Of Breath Aspirin [Adult Low Dose Aspirin EC] 81 mg PO HS Ferrous Sulfate [Feosol] 325 mg PO DAILY Ibuprofen [Motrin Ib] 400 mg PO Q8H PRN PRN Reason: Pain Calcium Carbonate [Calcium] 600 mg PO DAILY Ascorbic Acid [Vitamin C] 1,000 mg PO DAILY Discharge Medication List ALPRAZolam [Xanax] 0.5 mg PO TID PRN 01/18/19 [History] Atorvastatin Calcium [Lipitor] 20 mg PO HS 01/18/19 [History] Citalopram Hydrobromide [CeleXA] 40 mg PO HS 01/18/19 [History] Gabapentin 800 mg PO TID 01/18/19 [History] Omeprazole 40 mg PO HS 01/18/19 [History] amLODIPine [Norvasc] 10 mg PO HS 01/18/19 [History] metFORMIN HCL [Glucophage] 500 mg PO BID 01/18/19 [History] Albuterol Inhaler [Ventolin Hfa Inhaler] 1 - 2 puff INHALATION RT-Q4H PRN 01/24/19 [History] Melatonin 10 mg PO HS PRN 01/24/19 [History] Aspirin [Adult Low Dose Aspirin EC] 81 mg PO HS 02/27/19 [History] Ascorbic Acid [Vitamin C] 1,000 mg PO DAILY 03/26/19 [History] Calcium Carbonate [Calcium] 600 mg PO DAILY 03/26/19 [History] Ferrous Sulfate [Feosol] 325 mg PO DAILY 03/26/19 [History] Ibuprofen [Motrin Ib] 400 mg PO Q8H PRN 03/26/19 [History] HYDROcodone/APAP 5-325MG [[place] 5] 1 - 2 each PO Q6HR PRN 7 Days #56 tab 06/22/19 [Rx] HYDROcodone/APAP 7.5-325MG [[place] 7.5-325] 1 - 2 tab PO Q6HR PRN 7 Days #56 tab 06/23/19 [Rx] Follow up Appointment(s)/Referral(s): Viry Alvares DO [Doctor of Osteopathic Medicine] - 07/07/19 9:30 am (With Lawrence Peralta) Justine Carpenter MD [Primary Care Provider] - 06/28/19 10:30 am Activity/Diet/Wound Care/Special Instructions: Keep site clean. Patient may shower without a dressing intact at this time. May ambulate as tolerated. Avoid heavy or rigorous activity. No repetitive bending twisting or lifting. No overhead work. Do not soak in total. Take medications as prescribed. Last 2 Left will mail a glucometer to patient - [phone] Discharge Disposition: HOME SELF-CARE
[2019-06-26] MEDS: HYDROcodone/APAP 5-325MG 1 EACH TAB PO PRN (09:24)
[2019-06-26] MEDS: SENNOSIDES-DOCUSATE SODIUM 1 EACH TAB PO SCH (09:25)
[2019-06-26] MEDS: ASCORBIC ACID 500 MG TAB PO SCH (09:25)
[2019-06-26] MEDS: CALCIUM CARBONATE 500 MG CHEWABLE PO SCH (09:25)
[2019-06-26] MEDS: GABAPENTIN 400 MG CAP PO SCH (09:25)
[2019-06-26] MEDS: FERROUS SULFATE 325 MG TAB PO SCH (09:25)
[2019-06-26] MEDS: metFORMIN 500 MG TAB PO SCH (09:25)
--- NOTE | 2019-06-26 09:27 | CDI ---
Documentation Clarification Form Date: 06/23/2019 2:18:00 PM From: Rachel OakesShahELICEO acevedo, CCDS Admit Date: 06/21/2019 7:25:00 AM Patient Name: Bello Russ Visit Number: [id number] Discharge Date: ATTENTION: The Clinical Documentation Specialists (CDI) and [facility] Coding Staff appreciate your assistance in clarifying documentation. Please respond to the clarification below the line at the bottom and electronically sign. The CDI & [facility] Coding staff will review the response and follow-up if needed. Please note: Queries are made part of the Legal Health Record. If you have any questions, please contact the author of this message via ITS. Dr. Troy Banks: *Thank you for responding to this query, please clarify the acuity of the patients COPD if possible. Asthma is documented in the medical management consult & subsequent progress notes. Per the 06/22 medical management progress note: "Fever; possible atelectasis." Patients Admitting Diagnosis: Admitted for elective L5-S1 fusion, laminectomy & decompression. Post-Operative Diagnosis: Same. Developed fever, T max 103.6 on 06/22 & 101 on 06/23. History/Risk Factors: Asthma, COPD, DM II, Sleep apnea, Obesity w/BMI 41.8, Hypertension, Hyperlipidemia. Former smoker. Clinical Indicators: As above. VS: T 97.6, R 18, PO 92 6Lnc, reduced to 3Lnc on 06/21. Subsequently put on CPAP w/temp 102.3. Currently PO 97 RA. CXR: Evidence of some atelectasis in lower areas. Treatment: INH Albuterol, IV Cefazolin, IV Dilaudid, po [place] *In your professional opinion, can you please further specify the following, if known? COPD o With acute exacerbation o Without acute exacerbation Other, please specify ___ Unable to determine Last Revision January 2018) COPD o Without acute exacerbation MTDD
[2019-06-26 12:14] LABS: Glucose,Whole Blood 113 mg/dL (75-99)
[2019-06-26 12:53] LABS: Hemoglobin A1C 6.1 % (4.0-6.0)
--- NOTE | 2019-06-26 14:58 | PN ---
PROGRESS NOTE DATE OF SERVICE: 06/26/2019 This is a 59-year-old gentleman admitted after back surgery with some fever. The patient empirically on antibiotics. No chest pain. No palpitations. No fever. PHYSICAL EXAM: Alert and oriented x3, pulse is 69, blood pressure 140/74, respirations 16, temperature 99.1, pulse ox 97% on room air. HEENT: Conjunctivae normal. NECK: No jugular venous distension. CARDIOVASCULAR: S1, S2, muffled. RESPIRATORY: Breath sounds diminsihed at the bases, a few rhonchi, no crackles. ABDOMEN: Soft, nontender. LEGS: No edema, no swelling. NERVOUS SYSTEM: No focal deficits. Back status post surgery. LABS: WBC is 10.1, hemoglobin is 12.5, glucose 138. ASSESSMENT: 1. Status post laminectomy, decompression L5-S1, spondylolysis with grade 3 of L5-S1. 2. History of asthma, chronic obstructive pulmonary disease. 3. Fever, possible atelectasis, improving. 4. Diabetes mellitus type 2. 5. Gastroesophageal reflux disease. 6. Hypertension. 7. History of increased WBC. 8. Hyperlipidemia. 9. History of musculoskeletal disorder. 10.History of sleep apnea. 11.History of hernia repair. 12.History of degenerative joint disease. 13.History of anxiety. 14.Remote history of nicotine dependence. 15.History of ETOH, remotely. 16.Obesity with body mass index of 41.8. RECOMMENDATION: Recommend to continue with current medications, continue with the current management and symptomatic treatment. Otherwise, continue with a short course of antibiotics recommended by ID request, continue the home medications. The rest of medications per Orthopedic Surgery and closely follow with Dr. Carpenter in the outpatient setting, continue incentive spirometry, further recommendations to follow. MMODL / IJN: [id number] /
[2019-06-26] MEDS ORDERED: LEVOFLOXACIN 500 MG TAB PO SCH (15:00)
[2019-06-26 16:13] VITALS: BP 113/71; PULSE 73; RESP 19; TEMP 99.8
== END 2019-06-26 16:10 | disposition home or self-care (01) | DRG 454 ==
LOC: 2ORMAIN 07:25 → 4SSUR 13:27
PROVIDERS: ADMIT Orthopaedic Surgery Orthopaedic Surgery of the Spine; ATTEND Orthopaedic Surgery Orthopaedic Surgery of the Spine
PROC: 0SG3071 Fusion of Lumbosacral Joint with Autologous Tissue Substitute, Posterior Approach, Posterior Column, Open Approach (ICD-10-PCS; 2019-06-21)
PROC: 0ST40ZZ Resection of Lumbosacral Disc, Open Approach (ICD-10-PCS; 2019-06-21)
PROC: 01NB0ZZ Release Lumbar Nerve, Open Approach (ICD-10-PCS; 2019-06-21)
PROC: 07DS3ZZ Extraction of Vertebral Bone Marrow, Percutaneous Approach (ICD-10-PCS; 2019-06-21)
PROC: 4A11X4G Monitoring of Peripheral Nervous Electrical Activity, Intraoperative, External Approach (ICD-10-PCS; 2019-06-21)
PROC: 0SG30AJ Fusion of Lumbosacral Joint with Interbody Fusion Device, Posterior Approach, Anterior Column, Open Approach (ICD-10-PCS; principal; 2019-06-21 08:30)
DX: M43.17 Spondylolisthesis, lumbosacral region (principal); J98.11 Atelectasis; Z68.41 Body mass index [BMI] 40.0-44.9, adult; M41.86 Other forms of scoliosis, lumbar region; E66.9 Obesity, unspecified; E87.70 Fluid overload, unspecified; M51.17 Intervertebral disc disorders with radiculopathy, lumbosacral region; M48.061 Spinal stenosis, lumbar region without neurogenic claudication; M48.07 Spinal stenosis, lumbosacral region; K52.9 Noninfective gastroenteritis and colitis, unspecified; J44.9 Chronic obstructive pulmonary disease, unspecified; M19.031 Primary osteoarthritis, right wrist; M19.032 Primary osteoarthritis, left wrist; E11.9 Type 2 diabetes mellitus without complications; K21.9 Gastro-esophageal reflux disease without esophagitis; H91.90 Unspecified hearing loss, unspecified ear; I10 Essential (primary) hypertension; E78.5 Hyperlipidemia, unspecified; G47.30 Sleep apnea, unspecified; F41.9 Anxiety disorder, unspecified; F32.9 Major depressive disorder, single episode, unspecified; H93.19 Tinnitus, unspecified ear; F10.11 Alcohol abuse, in remission; Z79.84 Long term (current) use of oral hypoglycemic drugs; Z79.82 Long term (current) use of aspirin; Z79.899 Other long term (current) drug therapy; Z87.891 Personal history of nicotine dependence; Z87.81 Personal history of (healed) traumatic fracture; Z98.890 Other specified postprocedural states; Z88.0 Allergy status to penicillin; Z91.041 Radiographic dye allergy status; Z91.013 Allergy to seafood; Z83.3 Family history of diabetes mellitus; Z82.49 Family history of ischemic heart disease and other diseases of the circulatory system; Z82.3 Family history of stroke
CPT/HCPCS: 71045; 71046; 72100; 80048; 80053; 81003; 83036; 85025; 86850; 86900; 86901; 87040; 87070; 87086; 87205; 94640; 94760

== ENCOUNTER → 2020-05-13 | Outpatient (CLI) | payer BC ==
[2020-05-13 08:45] LABS: Basophils # (A) 0.1 k/uL (0-0.2); Basophils % (A) 1 %; Eosinophils # (A) 0.4 k/uL (0-0.7); Eosinophils % (A) 4 %; HCT 46.4 % (39.0-53.0); HGB 15.1 gm/dL (13.0-17.5); Lymphocytes # (A) 1.3 k/uL (1.0-4.8); Lymphocytes % (A) 12 %; MCH 26.9 pg (25.0-35.0); MCHC 32.5 g/dL (31.0-37.0); MCV 82.7 fL (80.0-100.0); Mean Platelet Volume 7.6; Monocytes # (A) 0.6 k/uL (0-1.0); Monocytes % (A) 6 %; Neutrophils # (A) 7.9 k/uL (1.3-7.7); Neutrophils % (A) 76 %; Platelet Count 260 k/uL (150-450); RBC 5.61 m/uL (4.30-5.90); RDW 13.3 % (11.5-15.5); WBC 10.4 k/uL (3.8-10.6)
[2020-05-13 20:34] LABS: African American GFR (CKD) 85.3 (60.0-200.0); Albumin 4.2 g/dL (3.80-4.90); Albumin/Globulin Ratio 2.1 (1.60-3.17); Anion Gap 8.1 mmol/L (4.00-12.00); BUN/Creat Ratio 18.18 Ratio (12.00-20.00); Calcium 9.2 mg/dL (8.7-10.3); Carbon Dioxide 23.9 mmol/L (21.6-31.8); Chol/HDL Ratio 3.88; LDL Cholesterol,Calculated 67.8 mg/dL (0.0-131.0); Non-African American GFR(CKD) 73.6 (60.0-200.0); Potassium 4.7 mmol/L (3.5-5.5); Total Bilirubin 0.4 mg/dL (0.2-1.2); Total Protein 6.2 g/dL (6.2-8.2); VLDL Calculation 27.2 mg/dL (5.00-40.00)
[2020-05-13 20:42] LABS: PSA Annual Screen 0.5 ng/mL (0.0-4.0)
[2020-05-13 21:28] LABS: Microalbumin Creatinine Ratio <30 mg/g Creat (0-30); Urine Creatinine 84.7 mg/dL
== END ==
LOC: LABWHC1 08:03
PROVIDERS: ATTEND Internal Medicine
DX: I10 Essential (primary) hypertension (principal); E11.9 Type 2 diabetes mellitus without complications; E78.00 Pure hypercholesterolemia, unspecified; Z12.5 Encounter for screening for malignant neoplasm of prostate
CPT/HCPCS: 80061; 80053; 85025; 82043; 82570; 83036; 36415; G0103

== ENCOUNTER → 2020-07-09 | Outpatient (CLI) | payer BC ==
--- NOTE | 2020-07-09 17:01 | PN ---
PROGRESS NOTE A 60-year-old male patient with known history of obstructive sleep apnea coming in for an annual check. He is on a CPAP pressure of 10 cm of water. He is extremely compliant, averaging around 7.7 hours per night and his CPAP use for more than 4 hours is 100% with an AHI of 0.8. Leak is an 8 L/minute. Her weight is down and the patient has lost around 7-8 pounds since his last evaluation. His humidification chamber is not working properly and he wants to update his machine. I am not sure that he is 5 years past his original machine and were are going to try to send a prescription for a set up for a new machine for him. He is using a Mirage FX nose mask. No other new complaints otherwise for now. MEDICATIONS: Include Norvasc, metformin, triamterene, hydrochlorothiazide, omeprazole, Lipitor, and Xanax. REVIEW OF SYSTEMS: A 14-point review of system was done, positive findings are mentioned in history of present illness. Otherwise negative BP 140/89, pulse 82, respirations 16, temperature 98.4, saturation 94% on room air. Height is 5, 8, weight is 276, BMI 41.3. GENERAL APPEARANCE: Calm, comfortable. Head is atraumatic, normocephalic. NECK: Supple. No JVD. No goiter or neck masses. LUNGS: Clear to auscultation. HEART: Heart sounds are regular rate and rhythm, normal S1, S2. No S3, S4. No murmurs. ABDOMEN: Soft, nontender. No organomegaly. EXTREMITIES: No edema, no cyanosis or clubbing. NEUROLOGIC: Awake and alert, there is no focal neurological deficit. IMPRESSION: 1. Obstructive sleep apnea, currently on CPAP pressure of 10 cm of water. Baseline AHI is 20. Patient is compliant. Compliance data was checked. Treatment is successful. The humidification chamber is not working properly. 2. Obesity with a body mass index of 41.3. 3. Hypertension. 4. Hyperlipidemia. 5. Diabetes mellitus. PLAN: 1. Order a new CPAP machine. 2. Keep the pressure at 10 cm of water. 3. Renew his Can FX nasal mask. Encourage further weight loss. See me back in a year's time in followup. MMODL / IJN: [id number] /
== END | disposition home or self-care (01) ==
LOC: SLEEP 16:17
PROVIDERS: ATTEND Internal Medicine Critical Care Medicine
DX: G47.33 Obstructive sleep apnea (adult) (pediatric) (principal); I10 Essential (primary) hypertension; E11.9 Type 2 diabetes mellitus without complications; E78.5 Hyperlipidemia, unspecified; Z99.89 Dependence on other enabling machines and devices; E66.9 Obesity, unspecified; Z68.41 Body mass index [BMI] 40.0-44.9, adult; Z79.84 Long term (current) use of oral hypoglycemic drugs; Z79.899 Other long term (current) drug therapy

== ENCOUNTER 2020-11-01 06:31 | Day surgery (SDC) | payer BC ==
[2020-10-30 11:30] VITALS: BMI 41.0
[~2020-11-01 06:31] MED LIST changes: +ALPRAZolam 0.25 MG TAB PO PRN; +ALPRAZolam 0.5 MG TAB PO PRN; +ASPIRIN 325 MG TAB PO STA; +ATORVASTATIN 80 MG TAB PO STA; -BACITRACIN 50,000 UNIT, POLYMYXIN B 500,000 UNIT in SODIUM CHLORIDE 0.9% IRRIGATIO 1,00... IRRIGATION ONE; -DEXAMETHASONE SOD PHOSPHATE 10 MG/ML 1 ML VIAL IV ONE; -MIDAZOLAM 2 MG/2 ML VIAL IV PRN; +NITROGLYCERIN SL TABS 0.4 MG TAB SUBLINGUAL PRN; -ONDANSETRON 4 MG/2 ML VIAL IVP ONE; -SCOPOLAMINE 1.5MG/72HR PATCH TRANSDERM ONE; +SODIUM CHLORIDE 0.9% 1,000 ML in EMPTY BAG 1 BAG IV ONE; -ceFAZolin 3 GM in SODIUM CHLORIDE 0.9% 100 ML IVPB ONE
[2020-11-01] MEDS ORDERED: HEPARIN SODIUM,PORCINE 2,500 UNIT in SODIUM CHLORIDE 0.9% 250 ML IRRIGATION PRN (07:00)
[2020-11-01] MEDS ORDERED: HEPARIN SODIUM,PORCINE 10,000 UNIT in SODIUM CHLORIDE 0.9% 1,000 ML IRRIGATION PRN (07:00)
[2020-11-01 07:05] LABS: Glucose,Whole Blood 161 mg/dL (75-99)
[2020-11-01 07:08] VITALS: RESP 16; TEMP 97
[2020-11-01] MEDS ORDERED: HEPARIN SODIUM 1,000 UN/ML (10ML VL) ONE (07:27)
[2020-11-01] MEDS ORDERED: VERAPAMIL 2.5 MG/ML 2 ML AMP ONE (07:28)
[2020-11-01] MEDS ORDERED: LIDOCAINE 1% INJ 10MG/ML (20 ML MDV) ONE (07:28)
[2020-11-01] MEDS ORDERED: MIDAZOLAM 2 MG/2 ML VIAL IV ONE (07:38)
[2020-11-01] MEDS ORDERED: LIDOCAINE 1% INJ 10MG/ML (20 ML MDV) SQ ONE (07:39)
[2020-11-01] MEDS: VERAPAMIL SYRINGE (5 MG/10 ML) INTRAARTER ONE ×2 (07:41→07:59)
[2020-11-01] MEDS ORDERED: IOPAMIDOL-370 100ML BTL INJ ONE (07:59)
[2020-11-01] MEDS ORDERED: SODIUM CHLORIDE 0.9% 1,000 ML IV SCH (08:10)
--- NOTE | 2020-11-01 08:57 | CC ---
CARDIAC CATHETERIZATION REPORT DATE OF SERVICE: 11/01/2020. PROCEDURE: Left heart catheterization and coronary angiography. PERFORMED BY: Dr. Franklin Freeman. Moderate conscious sedation time was 23 minutes. The patient was administered Versed. Oxygen saturation, hemodynamics and EKG were monitored closely. CLINICAL INFORMATION: Mr. Bello Russ is a gentleman with history of degenerative joint disease, hypertension, hyperlipidemia, type 2 diabetes, who was going for elective left total knee arthroplasty, but had a stress test and echo. Stress test revealed an area of decreased perfusion in the distal anteroapical wall and was advised cardiac evaluation. I evaluated the patient in the office about 48 hours ago, noted that he did not have symptoms of angina, but had a strong risk factor profile. He was advised cardiac cath after due discussion regarding risks, benefits, and options. PROCEDURE NOTE: Under local anesthesia and strict aseptic precautions, a 6-Yakut introducer was placed in the right radial artery. Using JL3.5 and JR4 catheters, I performed coronary angiography and the same right catheter was used to check LV pressures but LV gram was not performed. The sheath was then taken out and TR band applied as per protocol with saturation of the fingers of the right hand of 94%. Patient tolerated procedure well without complication. Results were discussed with the patient as well as his . CARDIAC CATHETERIZATION FINDINGS: The left ventricular end-diastolic pressure was 10 mmHg without any gradient across aortic valve. CORONARY ANGIOGRAPHY FINDINGS: RIGHT CORONARY ARTERY: Large dominant vessel. No significant disease. Distally, it bifurcates into PDA and PLV, both of which have minor irregularities but no significant disease in the dominant RCA. LEFT MAIN CORONARY ARTERY: This is a very long disease-free vessel that bifurcates into LAD and circumflex. LEFT ANTERIOR DESCENDING CORONARY ARTERY: This vessel gives off 2 diagonal branches. The first one is a large diagonal, minor irregularities. The second diagonal is smaller, has 80% lesion then the mid LAD is free of significant disease and the distal one-third of the LAD has mild diffuse disease of about 30% to 40% and almost at the apex there is 80% narrowing after which there was small amount of myocardium being supplied by the LAD. The distal anteroapical portion of the LAD therefore has 80% lesion and beyond it there are 2 branches and both of which supply a limited amount of myocardium. The LAD system therefore has a distal disease as well as a second diagonal disease. Second diagonal is also small in caliber and distribution. LEFT POSTERIOR CIRCUMFLEX CORONARY ARTERY: Nondominant vessel, has minor irregularities, no significant disease. LEFT VENTRICULOGRAM: Left ventriculogram was not performed. FINAL IMPRESSION: This patient has a right dominant system, has a second diagonal 80% and distal LAD 80%. Beyond the distal LAD, the amount of myocardium supplied by this vessel is small. The distal one-third of LAD has diffuse 40% narrowing. The second diagonal is a small branch of 80% narrowing. Circumflex and RCA which is dominant are free of significant disease. Normal filling pressures. No gradient. RECOMMENDATIONS: This patient can go ahead with the knee operation. I am recommending metoprolol tartrate 25 mg b.i.d. to be added to his regimen. There is no contraindication, but the risk is moderate. Advised cautious fluid administration and optimal BP control perioperatively. The patient will be discharged today and he can go ahead with the operation to be performed on the . MMODL / IJN: [id number] /
[2020-11-01] MEDS ORDERED: METOPROLOL TARTRATE 25 MG TAB PO STA (12:59)
[2020-11-01 15:10] VITALS: BP 150/94; PULSE 73
== END 2020-11-01 16:00 | disposition home or self-care (01) ==
LOC: CATHCVL 06:31
PROVIDERS: ATTEND Internal Medicine Interventional Cardiology
DX: I25.110 Atherosclerotic heart disease of native coronary artery with unstable angina pectoris (principal); R94.39 Abnormal result of other cardiovascular function study; R07.89 Other chest pain; R06.02 Shortness of breath; I10 Essential (primary) hypertension; E78.2 Mixed hyperlipidemia; E11.9 Type 2 diabetes mellitus without complications; E66.01 Morbid (severe) obesity due to excess calories; M19.90 Unspecified osteoarthritis, unspecified site; Z68.41 Body mass index [BMI] 40.0-44.9, adult; Z87.891 Personal history of nicotine dependence; Z79.899 Other long term (current) drug therapy; Z79.84 Long term (current) use of oral hypoglycemic drugs; Z88.0 Allergy status to penicillin; Z91.041 Radiographic dye allergy status; Z91.048 Other nonmedicinal substance allergy status; Z82.49 Family history of ischemic heart disease and other diseases of the circulatory system
CPT/HCPCS: 93458; C1769; C1894; J2250; J2001; J1644; Q9967

== ENCOUNTER → 2021-02-24 | Outpatient (CLI) | payer BC ==
--- NOTE | 2021-02-24 15:10 | CT ---
EXAMINATION TYPE: CT abdomen pelvis wo con DATE OF EXAM: 02/24/2021 COMPARISON: 02/27/2019 HISTORY: c/o nausea CT DLP: 1142 mGycm Examination of the solid and hollow viscera is limited given the lack of contrast. FINDINGS: LUNG BASES: No evidence for nodule. No evidence for infiltrate. LIVER/GB: The gallbladder is unremarkable. No space-occupying hepatic lesion. PANCREAS: No pancreatic mass identified. No inflammatory process seen. SPLEEN: No evidence for splenomegaly. No intrasplenic lesions seen. ADRENALS: No adrenal nodules identified. No evidence for thickening. KIDNEYS: 3.2 cm left renal hypoattenuating lesion likely reflects a cyst. No additional renal lesions seen. No nephrolithiasis. No hydronephrosis. BOWEL: Appendix has a normal appearance. No evidence of bowel obstruction. No inflammatory process. Lymph nodes: No evidence for adenopathy greater than 1 cm. Abdominal aorta: Atheromatous changes seen. No evidence for aneurysm. Genital organs: No significant abnormality. Other: No significant abnormality. IMPRESSION: NO SIGNIFICANT ABNORMALITY TO ACCOUNT FOR THE PATIENT'S SYMPTOMS.
== END | disposition home or self-care (01) ==
LOC: RADCTMAIN 14:25
PROVIDERS: ATTEND Nurse Practitioner Family
DX: R11.0 Nausea (principal)
CPT/HCPCS: 74176

== ENCOUNTER 2021-04-07 07:36 | Day surgery (SDC) | payer BC ==
[2021-04-03 13:51] VITALS: BMI 42.4
[~2021-04-07 07:36] MED LIST changes: -ALPRAZolam 0.25 MG TAB PO PRN; -ALPRAZolam 0.5 MG TAB PO PRN; -ASPIRIN 325 MG TAB PO STA; -ATORVASTATIN 80 MG TAB PO STA; +LACTATED RINGERS 1,000 ML IV SCH; -NITROGLYCERIN SL TABS 0.4 MG TAB SUBLINGUAL PRN; -SODIUM CHLORIDE 0.9% 1,000 ML in EMPTY BAG 1 BAG IV ONE
[2021-04-07 08:05] VITALS: RESP 16; TEMP 98
[2021-04-07] MEDS ORDERED: LIDOCAINE 1% (10MG/ML) FOR IV START INTRADERMA ONE (08:05)
[2021-04-07 08:18] LABS: Glucose,Whole Blood 132 mg/dL (75-99)
[2021-04-07] MEDS ORDERED: PROPOFOL 10 MG/ML 20 ML VIAL IV ONE (08:38)
[2021-04-07] MEDS ORDERED: LIDOCAINE 1% INJ 10MG/ML (20 ML MDV) ONE (08:38)
--- NOTE | 2021-04-07 09:01 | P.PCN ---
Date of Procedure: 04/07/21 Description of Procedure: BRIEF HISTORY: Patient is a 60-year-old male presenting with symptoms of nausea for esophagogastroduodenoscopy. Patient reports waves of nausea mostly in the afternoon. Previously on omeprazole for years he has been switched to pantoprazole. Zofran does help with nausea but results in severe constipation. He denies any unintentional weight loss or NSAID use. Previous testing for H. pylori was negative.. PROCEDURE PERFORMED: Esophagogastroduodenoscopy with biopsy. PREOPERATIVE DIAGNOSIS: Nausea, history of GERD. ESTIMATED BLOOD LOSS: Minimal. IV sedation per anesthesia. PROCEDURE: After informed consent was obtained, the patient was brought into the endoscopy unit. IV sedation was administered by Anesthesia under continuous monitoring. Initially the Olympus GIF-190 video endoscope was inserted into the mouth. Esophagus intubated without any difficulty. It was gradually advanced into the stomach and duodenum and carefully examined. The bulb and the second part of the duodenum appeared normal, with biopsies taken. The scope at this time was withdrawn to the stomach, adequately insufflated with air, and upon careful examination, mucosa of the antrum, body, cardia and the fundus appeared normal, except for some mild punctate erythema in the antrum and body suggestive of mild gastritis biopsies taken. The scope was then withdrawn into the esophagus. The GE junction was located at 41 cm from the incisors, with biopsies of the lower esophagus taken. The esophagus appeared normal. There were no erosions or ulcerations seen and the patient tolerated the procedure well. IMPRESSION: 1. Mild gastritis. 2. Biopsies of the duodenum, antrum and body and lower esophagus. RECOMMENDATIONS: The findings of this examination were discussed with the patient and his family. Okay to resume diet. Okay to resume medications. Await pathology from biopsies. Continue current medical management. Follow-up in the GI clinic as scheduled for further management.
[2021-04-07 09:20] VITALS: BP 100/63; PULSE 54
== END 2021-04-07 09:46 | disposition home or self-care (01) ==
LOC: ORWHC2ENDO 07:36
PROVIDERS: ATTEND Internal Medicine
DX: K29.50 Unspecified chronic gastritis without bleeding (principal); K21.9 Gastro-esophageal reflux disease without esophagitis; I10 Essential (primary) hypertension; E78.5 Hyperlipidemia, unspecified; G47.33 Obstructive sleep apnea (adult) (pediatric); Z87.891 Personal history of nicotine dependence; Z91.041 Radiographic dye allergy status; Z79.84 Long term (current) use of oral hypoglycemic drugs; Z79.82 Long term (current) use of aspirin; Z79.899 Other long term (current) drug therapy; Z98.890 Other specified postprocedural states; Z88.0 Allergy status to penicillin; Z91.018 Allergy to other foods
CPT/HCPCS: 88305; 43239; J2001; J2704

== ENCOUNTER 2021-10-03 15:08 | Emergency (ER) | payer BC ==
[2021-10-03 17:07] LABS: Basophils # (A) 0.1 k/uL (0-0.2); Basophils % (A) 1 %; Eosinophils # (A) 0.4 k/uL (0-0.7); Eosinophils % (A) 3 %; HCT 46.7 % (39.0-53.0); HGB 15.2 gm/dL (13.0-17.5); Lymphocytes % (A) 16 %; MCH 27.7 pg (25.0-35.0); MCHC 32.6 g/dL (31.0-37.0); MCV 84.8 fL (80.0-100.0); Mean Platelet Volume 8.4; Monocytes # (A) 0.7 k/uL (0-1.0); Monocytes % (A) 5 %; Neutrophils # (A) 9.1 k/uL (1.3-7.7); Neutrophils % (A) 74 %; Platelet Count 226 k/uL (150-450); RDW 13.5 % (11.5-15.5); WBC 12.3 k/uL (3.8-10.6)
[2021-10-03 17:22] LABS: ALT 25 U/L (4-49); AST 27 U/L (17-59); African American GFR (CKD) >90 (>60 ml/min/1.73 sqM); Alkaline Phosphatase 94 U/L (38-126); Anion Gap 10 mmol/L; Blood Urea Nitrogen 15 mg/dL (9-20); Calcium 9.2 mg/dL (8.4-10.2); Carbon Dioxide 23 mmol/L (22-30); Chloride 108 mmol/L (98-107); Glucose 111 mg/dL (74-99); Magnesium 2.1 mg/dL (1.6-2.3); Non-African American GFR(CKD) >90 (>60 ml/min/1.73 sqM); Potassium 3.7 mmol/L (3.5-5.1); Sodium 141 mmol/L (137-145); Total Bilirubin 0.5 mg/dL (0.2-1.3); Total Protein 6.9 g/dL (6.3-8.2)
[2021-10-03 17:30] LABS: INR 0.9 (<1.2); Partial Thromboplastin Time 25.4 sec (22.0-30.0); Prothrombin Time 10.1 sec (9.0-12.0)
--- NOTE | 2021-10-03 17:52 | XR ---
EXAMINATION TYPE: XR chest 2V DATE OF EXAM: 10/03/2021 5:13 PM COMPARISON:Chest radiographs from 06/06/2019 CLINICAL INDICATION:Male, 61 years old with history of Chest Pain; TECHNIQUE: Frontal and lateral views of the chest. FINDINGS: Lungs/Pleura: There is no evidence of pleural effusion, focal consolidation, or pneumothorax. Pulmonary vascularity: Pulmonary vascular congestion. Heart/mediastinum: Cardiomediastinal silhouette is prominent in size. Musculoskeletal: No acute osseous pathology. IMPRESSION: Congestive heart failure changes suggested with cardiomegaly and mild pulmonary vascular congestion. Correlate with BNP.
--- NOTE | 2021-10-03 21:08 | ED ---
General Adult HPI - General Chief complaint: Chest Pain Stated complaint: Chest/Arm Pain Time Seen by Provider: 10/03/21 21:06 Source: patient Mode of arrival: ambulatory Limitations: no limitations - History of Present Illness Initial comments: Patient presents to the ED with his for evaluation. Patient states that he was "splitting wood with an ax" 5 days ago, and he developed a "stiff neck" at that time. Patient states that he was having trouble turning his head to the left side initially, and he still is. Patient states that for the past 2 days or so, his pain has been also radiating down his left arm and to his left upper chest. Patient states that his pain has been constant since onset. Patient denies direct trauma, fever or chills, headache, focal numbness/weakness/neuro deficit, dyspnea, cough or cold symptoms, palpitations, dizziness, nausea/vomiting/diaphoresis, abdominal pain, urinary symptoms, or any other symptoms or complaints. - Related Data Home Medications Medication Instructions Recorded Confirmed ALPRAZolam [Xanax] 0.5 mg PO TID PRN 01/18/19 04/03/21 Atorvastatin Calcium [Lipitor] 40 mg PO HS 01/18/19 04/03/21 amLODIPine [Norvasc] 5 mg PO HS 01/18/19 04/03/21 metFORMIN HCL [Glucophage] 500 mg PO BID 01/18/19 04/03/21 Albuterol Inhaler (Mhu) [Ventolin 1 - 2 puff INHALATION DIRECTED 01/24/19 04/03/21 Hfa Inhaler (Mhu)] PRN Fluticasone Nasal [place] [Flonase 1 spray EA NOSTRIL DIRECTED 10/30/20 04/03/21 Nasal [place]] Melatonin 3 mg PO HS PRN 10/30/20 04/03/21 Triamterene-Hctz 37.5-25Mg 1 cap PO DAILY 10/30/20 04/03/21 [Dyazide 37.5-25 Capsule] buPROPion HCL [Wellbutrin XL] 300 mg PO DAILY 10/30/20 04/03/21 Aspirin [Adult Low Dose Aspirin EC] 81 mg PO DAILY 04/03/21 04/03/21 Metoprolol Tartrate [Lopressor] 25 mg PO BID 04/03/21 04/03/21 Pantoprazole Sodium 40 mg PO BID 04/03/21 04/03/21 Tamsulosin [Flomax] 0.4 mg PO HS 04/03/21 04/03/21 Allergies Allergy/AdvReac Type Severity Reaction Status Date / Time Fish Containing Products Allergy Anaphylaxis Verified 10/03/21 22:52 [Fish] Penicillins Allergy Rash/Hives Verified 10/03/21 22:52 Iodinated Contrast Media AdvReac Rash/Hives Verified 10/03/21 22:52 [Iodinated Contrast- Oral and IV Dye] Review of Systems ROS Statement: Those systems with pertinent positive or pertinent negative responses have been documented in the HPI. ROS Other: All systems not noted in ROS Statement are negative. Past Medical History Past Medical History: Diabetes Mellitus, GERD/Reflux, Hyperlipidemia, Hypertension, Musculoskeletal Disorder, Sleep Apnea/CPAP/BIPAP Additional Past Medical History / Comment(s): TINNITUS., SPONDYLOTHESIS BACK., USES C-PAP MACHINE, seasonal allergies, currently nausea and heart burn History of Any Multi-Drug Resistant Organisms: None Reported Past Surgical History: Back Surgery, Hernia Repair, Joint Replacement, Orthopedic Surgery Additional Past Surgical History / Comment(s): Right shoulder, EXC End of collar bone; CTR HILARY Wrists arthritis, left shoulder & left knee arthroscopic. REPAIR TIBAL PLATEAU REPAIR 01/27/2019, repair of spondylothesis, lt knee replacement Past Anesthesia/Blood Transfusion Reactions: No Reported Reaction Past Psychological History: Anxiety, Depression Smoking Status: Former smoker Past Alcohol Use History: None Reported Past Drug Use History: None Reported - Past Family History Mother Family Medical History: CVA/TIA, Diabetes Mellitus, Hypertension Father Family Medical History: Diabetes Mellitus, Hypertension Son(s) Family Medical History: Cancer Additional Family Medical History / Comment(s): LEUKEMIA General Exam Limitations: no limitations General appearance: alert, in no apparent distress Head exam: Present: atraumatic, normocephalic Eye exam: Present: normal appearance, EOMI ENT exam: Present: normal oropharynx Neck exam: Present: other (Trachea is in midline). Absent: tenderness, meningismus Respiratory exam: Present: normal lung sounds bilaterally. Absent: respiratory distress, wheezes, rales, rhonchi, stridor Cardiovascular Exam: Present: regular rate, normal rhythm, normal heart sounds, other (Normal radial pulses bilaterally) GI/Abdominal exam: Present: soft. Absent: distended, tenderness, guarding Extremities exam: Present: normal inspection, full ROM. Absent: tenderness, pedal edema, calf tenderness Back exam: Present: normal inspection. Absent: tenderness Neurological exam: Present: alert, oriented X3. Absent: motor sensory deficit Psychiatric exam: Present: normal affect, normal mood Skin exam: Present: warm, dry, intact, normal color Course Vital Signs 10/03/21 10/03/21 10/03/21 16:23 21:54 22:00 Temperature 98.1 F Pulse Rate 65 56 L Pulse Rate [ 57 L Right Radial] Respiratory 16 18 Rate Blood Pressure 145/84 138/80 O2 Sat by Pulse 97 98 Oximetry - Reevaluation(s) Reevaluation #1: 10/03/21 22:51 Patient denies development of any new pain or symptoms while in the ED. Patient and are aware the patient's test results, and patient feels comfortable going home with his at this time. Patient was counseled about neck pain/chest pain, and he was clearly explained return and follow-up instructions. Patient was instructed to have a low threshold for return to the emergency department should his symptoms worsen. Patient was also instructed to follow up closely with his primary care provider. Patient feels comfortable this plan. Medical Decision Making - Medical Decision Making Patient reports that his pain began 5 days ago along the left side of his neck posteriorly, and he described his pain as a "stiff neck" at that time. Patient then states that his pain migrated to involve his left arm and the left side of his chest. Patient reports having constant pain for the past 5 days, and patient's troponin is negative. Patient's d-dimer is also negative. I do not think that the patient's pain is from a cardiac or emergent medical condition. I think that it is more likely to be from a muscular or cervical etiology, including possible cervical stenosis and/or cervical radiculopathy. Will discharge patient home with his at this time. - Lab Data Result diagrams: 10/03/21 16:54 10/03/21 16:54 Lab Results 10/03/21 10/03/21 10/03/21 Range/Units 16:54 16:54 16:54 WBC 12.3 H (3.8-10.6) k/uL RBC 5.50 (4.30-5.90) m/uL Hgb 15.2 (13.0-17.5) gm/dL Hct 46.7 (39.0-53.0) % MCV 84.8 (80.0-100.0) fL MCH 27.7 (25.0-35.0) pg MCHC 32.6 (31.0-37.0) g/dL RDW 13.5 (11.5-15.5) % Plt Count 226 (150-450) k/uL MPV 8.4 Neutrophils % 74 % Lymphocytes % 16 % Monocytes % 5 % Eosinophils % 3 % Basophils % 1 % Neutrophils # 9.1 H (1.3-7.7) k/uL Lymphocytes # 2.0 (1.0-4.8) k/uL Monocytes # 0.7 (0-1.0) k/uL Eosinophils # 0.4 (0-0.7) k/uL Basophils # 0.1 (0-0.2) k/uL PT 10.1 (9.0-12.0) sec INR 0.9 (<1.2) APTT 25.4 (22.0-30.0) sec D-Dimer 0.50 (<0.60) mg/L FEU Sodium 141 (137-145) mmol/L Potassium 3.7 (3.5-5.1) mmol/L Chloride 108 H (98-107) mmol/L Carbon Dioxide 23 (22-30) mmol/L Anion Gap 10 mmol/L BUN 15 (9-20) mg/dL Creatinine 0.86 (0.66-1.25) mg/dL Est GFR (CKD-EPI)AfAm >90 (>60 ml/min/1.73 sqM) Est GFR (CKD-EPI)NonAf >90 (>60 ml/min/1.73 sqM) Glucose 111 H (74-99) mg/dL Calcium 9.2 (8.4-10.2) mg/dL Magnesium 2.1 (1.6-2.3) mg/dL Total Bilirubin 0.5 (0.2-1.3) mg/dL AST 27 (17-59) U/L ALT 25 (4-49) U/L Alkaline Phosphatase 94 (38-126) U/L Troponin I (0.000-0.034) ng/mL Total Protein 6.9 (6.3-8.2) g/dL Albumin 4.0 (3.5-5.0) g/dL 10/03/21 Range/Units 16:54 WBC (3.8-10.6) k/uL RBC (4.30-5.90) m/uL Hgb (13.0-17.5) gm/dL Hct (39.0-53.0) % MCV (80.0-100.0) fL MCH (25.0-35.0) pg MCHC (31.0-37.0) g/dL RDW (11.5-15.5) % Plt Count (150-450) k/uL MPV Neutrophils % % Lymphocytes % % Monocytes % % Eosinophils % % Basophils % % Neutrophils # (1.3-7.7) k/uL Lymphocytes # (1.0-4.8) k/uL Monocytes # (0-1.0) k/uL Eosinophils # (0-0.7) k/uL Basophils # (0-0.2) k/uL PT (9.0-12.0) sec INR (<1.2) APTT (22.0-30.0) sec D-Dimer (<0.60) mg/L FEU Sodium (137-145) mmol/L Potassium (3.5-5.1) mmol/L Chloride (98-107) mmol/L Carbon Dioxide (22-30) mmol/L Anion Gap mmol/L BUN (9-20) mg/dL Creatinine (0.66-1.25) mg/dL Est GFR (CKD-EPI)AfAm (>60 ml/min/1.73 sqM) Est GFR (CKD-EPI)NonAf (>60 ml/min/1.73 sqM) Glucose (74-99) mg/dL Calcium (8.4-10.2) mg/dL Magnesium (1.6-2.3) mg/dL Total Bilirubin (0.2-1.3) mg/dL AST (17-59) U/L ALT (4-49) U/L Alkaline Phosphatase (38-126) U/L Troponin I <0.012 (0.000-0.034) ng/mL Total Protein (6.3-8.2) g/dL Albumin (3.5-5.0) g/dL - Radiology Data Radiology results: report reviewed (Chest x-ray: Congestive heart failure changes suggested with cardiomegaly and mild pulmonary vascular congestion. Correlate with BNP.) Noncontrast CT cervical spine: There is spondylotic changes in the lower cervical spine. There is evidence for some spinal stenosis at C5-6. No fracture seen. Disposition Clinical Impression: Neck pain, Cervical spinal stenosis, Chest pain Disposition: HOME SELF-CARE Condition: Stable Instructions (If sedation given, give patient instructions): Chest Pain (ED), Cervical Strain (ED), Neck Pain (ED), Cervical Radiculopathy (ED) Additional Instructions: Return to the ER immediately should you develop new or worsening pain, shortness of breath, feeling dizzy or faint, nausea or vomiting, a fever, numbness or weakness, or new or worsening symptoms. Follow up closely with your primary care provider. Is patient prescribed a controlled substance at d/c from ED?: No Referrals: Renetta Nguyen III, MD [Primary Care Provider] - 1-2 days Time of Disposition: 22:56
[2021-10-03 22:01] VITALS: RESP 18
--- NOTE | 2021-10-03 22:36 | CT ---
EXAMINATION TYPE: CT cervical spine wo con DATE OF EXAM: 10/03/2021 COMPARISON: None HISTORY: pain and stiffness in neck CT DLP: 783.3 mGycm Automated exposure control for dose reduction was used. Images obtained from the level of the sella turcica to the T2 level with no contrast. There is mild straightening of the vertebra. There is no significant disc space narrowing. There is m ild spurring of the endplates at C5-6 and C6-7. Facet joints are intact. Posterior elements are intac t. There is no compression fracture. The skull base is intact. There is normal aeration of the mastoi d sinuses. There is mild narrowing of the spinal canal at C5-6 due to posterior endplate spur formati on. IMPRESSION: There is spondylotic changes in the lower cervical spine. There is evidence for some spinal stenosis at C5-6. No fracture seen.
[2021-10-03 23:39] VITALS: BP 132/78; PULSE 61; TEMP 97.4
== END 2021-10-03 23:40 | disposition home or self-care (01) ==
LOC: EC 15:08
DX: R07.9 Chest pain, unspecified (principal); R07.89 Other chest pain; M48.02 Spinal stenosis, cervical region; E11.9 Type 2 diabetes mellitus without complications; K21.9 Gastro-esophageal reflux disease without esophagitis; E78.5 Hyperlipidemia, unspecified; I10 Essential (primary) hypertension; F41.9 Anxiety disorder, unspecified; F32.A Depression, unspecified; Z96.652 Presence of left artificial knee joint; Z88.0 Allergy status to penicillin; Z87.891 Personal history of nicotine dependence; Z79.84 Long term (current) use of oral hypoglycemic drugs; Z79.82 Long term (current) use of aspirin
CPT/HCPCS: 36415; 71046; 72125; 80053; 83735; 84484; 85025; 85379; 85610; 85730; 93005; 99285

== ENCOUNTER → 2021-11-17 | Outpatient (CLI) | payer BC ==
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
[2021-11-17 09:19] VITALS: BP 127/85; PULSE 52; RESP 18; TEMP 97.8
== END ==
LOC: PNWHC3 08:10
PROVIDERS: ATTEND Physician Assistant Medical
DX: M50.30 Other cervical disc degeneration, unspecified cervical region (principal); M48.02 Spinal stenosis, cervical region; J45.909 Unspecified asthma, uncomplicated; E11.9 Type 2 diabetes mellitus without complications; K21.9 Gastro-esophageal reflux disease without esophagitis; E78.5 Hyperlipidemia, unspecified; I10 Essential (primary) hypertension; F41.9 Anxiety disorder, unspecified; M19.032 Primary osteoarthritis, left wrist; M19.031 Primary osteoarthritis, right wrist; Z87.891 Personal history of nicotine dependence; Z79.84 Long term (current) use of oral hypoglycemic drugs; Z79.51 Long term (current) use of inhaled steroids; Z79.899 Other long term (current) drug therapy; Z91.013 Allergy to seafood; Z88.0 Allergy status to penicillin; Z91.041 Radiographic dye allergy status
CPT/HCPCS: 99211

== ENCOUNTER → 2021-12-12 | Day surgery (SDC) | payer BC ==
[2021-12-11 11:35] VITALS: BMI 42.5
[~2021-12-12] MED LIST changes: +IV FLUID CONTINUATION 1,000 ML IV ONE; +LACTATED RINGERS 1,000 ML IV ONE; -LACTATED RINGERS 1,000 ML IV SCH; +MIDAZOLAM 2 MG/2 ML VIAL ONE; +ROPIVACAINE 5MG/ML 20ML VIAL ONE; +fentaNYL (PF) 50 MCG/ML 2 ML AMP ONE; +methylPREDNISolone ACETATE 40 MG/ML 1 ML VIAL ONE
[2021-12-12 13:13] VITALS: RESP 16; TEMP 97.6
[2021-12-12 13:20] LABS: Glucose,Whole Blood 101 mg/dL (75-99)
--- NOTE | 2021-12-12 14:18 | P.PCN ---
Date of Procedure: 12/12/21 Procedure(s) Performed: PREOPERATIVE DIAGNOSIS: 1-Cervical Spondylosis with Facet Arthropathy.without myelopathy. 2-cervical degenerative disc disease POSTOPERATIVE DIAGNOSIS: Same as preoperative diagnosis. PROCEDURES: Diagnostic Left C4 , C5 , and C6 medial branch blocks, with flu oroscopic guidance (fluoroscopy images available in radiology department ) ( to target the facet joint at Left C4- 5 , C5- 6 )# 1st ANESTHESIA: Monitored anesthesia care as per anesthesia department. EBL: Minimal PROCEDURE INDICATION: The patient with neck pain secondary to cervical arthropathy unresponsive to more conservative treatments. PROCEDURE DESCRIPTION / TECHNIQUE: The patient was seen and identified in the preoperative area. Risks, benefits, complications, and alternatives were discussed with the patient, the patient agreed to proceed with the procedure and signed the consent. IV was started. Vital signs remained stable throughout the procedure. Patient was taken to the OR and time out was completed. The patient was placed in the Lateral position ( left side up ) on the procedure table. The cervical area was prepped and draped in the usual sterile fashion. Critical pause was taken. Vital signs were closely monitored during the procedure. Conscious sedation was used during the procedure to decrease patients anxiety. Using cross-table lateral fluoroscopy, the centroid of the trapezoid of left C4 , C5 and C6, was identified, marked, and localized with 1% lidocaine 1 ml at each level for skin and Sub Q infiltrations . Subsequently, a 22 G 3 spinal needle was advanced guided by fluoroscopy to the centroid of the trapezoid of left C4 , C5, C6 . Trinity tip position was confirmed at the centroid of the trapezoids of left C4 , C5 ,C6 with anteroposterior fluoroscopy. Subsequently, 1.5 ml of preservative-free Ropivacaine 0.5% mixed with Depo-Medrol 20 mg and half ml of the mixture was injected after negative aspiration for blood and CSF. Trinity was then removed intact .. COMPLICATIONS: No acute complications. DISPOSITION / PLANS: The patient was placed in a supine position and transferred to the recovery area in a stable condition for observation and was discharged from the recovery room after meeting discharge criteria. Home discharge instructions given to the patient by the staff. The patient was reexamined prior to discharge. The patient will schedule a follow up in the clinic in 2-4 weeks.
--- NOTE | 2021-12-12 14:24 | FL ---
Fluoroscopy History: cervical facet block L cervical facet block 3 levels, 11sec fl time
[2021-12-12 14:46] VITALS: BP 115/66; PULSE 55
== END ==
LOC: PNWHC3 12:50
PROVIDERS: ATTEND Specialist
DX: M47.812 Spondylosis without myelopathy or radiculopathy, cervical region (principal); M50.30 Other cervical disc degeneration, unspecified cervical region; Z91.041 Radiographic dye allergy status; I10 Essential (primary) hypertension; E78.5 Hyperlipidemia, unspecified; Z87.891 Personal history of nicotine dependence; G43.909 Migraine, unspecified, not intractable, without status migrainosus; F32.A Depression, unspecified; K21.9 Gastro-esophageal reflux disease without esophagitis; E11.9 Type 2 diabetes mellitus without complications; Z79.84 Long term (current) use of oral hypoglycemic drugs; Z79.891 Long term (current) use of opiate analgesic; Z79.899 Other long term (current) drug therapy; Z88.0 Allergy status to penicillin; Z91.013 Allergy to seafood
CPT/HCPCS: 64490; 64491; J2250; J1030; J3010; J2795

== ENCOUNTER → 2022-10-13 | Outpatient (CLI) | payer BC ==
--- NOTE | 2022-10-13 14:44 | CT ---
EXAMINATION TYPE: CT brain wo con CT DLP: 1077.7 mGycm, Automated exposure control for dose reduction was used. DATE OF EXAM: 10/13/2022 2:39 PM COMPARISON: CT sinus 04/12/2018. CLINICAL INDICATION:Male, 62 years old with history of R51.9 HEADACHE, Headache x6mo. Chronic sinusit is. Hx of sinus Sx. TECHNIQUE: Brain: Multiple axial CT images of the brain were obtained without IV contrast. Coronal and sagittal reformats reviewed. FINDINGS: Brain: Extra-axial spaces: No abnormal extra-axial fluid collections. Ventricular system: Within normal limits Cerebral parenchyma: No acute intraparenchymal hemorrhage or mass effect. The cho-white junction is well differentiated. Cerebellum: Unremarkable. Mass effect: No evidence of midline shift. Intracranial vasculature: unremarkable Soft tissues: Normal. Calvarium/osseous structures: No depressed skull fracture. Paranasal sinuses and mastoid air cells: Small 1 cm mucous retention cyst within the left maxillary s inus. The remaining paranasal sinuses are clear. The mastoid air cells are clear. Hypoplasia/non form ed of the bilateral frontal sinuses. Visualized orbits: Orbital contents are intact. IMPRESSION: No acute intracranial process.
== END | disposition home or self-care (01) ==
LOC: RADCTMAIN 14:21
PROVIDERS: ATTEND Family Medicine
DX: J32.9 Chronic sinusitis, unspecified (principal)
CPT/HCPCS: 70450

== ENCOUNTER → 2023-05-25 | Outpatient (CLI) | payer BC ==
[2023-05-25 20:42] LABS: ALT 23 U/L (10-49); AST 20 U/L (14-35); Chol/HDL Ratio 3.64 Ratio; Creatine Kinase 93 U/L (35-257); LDL Cholesterol,Calculated 79.2 mg/dL (0.0-131.0)
== END | disposition home or self-care (01) ==
LOC: LABWHC1 15:32
PROVIDERS: ATTEND Internal Medicine Interventional Cardiology
DX: E11.9 Type 2 diabetes mellitus without complications (principal); I25.10 Atherosclerotic heart disease of native coronary artery without angina pectoris; E78.5 Hyperlipidemia, unspecified
CPT/HCPCS: 36415; 80061; 82550; 84450; 84460

== ENCOUNTER → 2024-07-28 | Outpatient (CLI) | payer OTHER ==
[2024-07-28 15:08] LABS: Basophils # (A) 0.08 X 10*3/uL (0.00-0.10); Basophils % (A) 0.7 %; Eosinophils # (A) 0.23 X 10*3/uL (0.04-0.35); Eosinophils % (A) 2.1 %; HCT 49.9 % (39.6-50.0); HGB 15.9 g/dL (13.0-17.0); Lymphocytes # (A) 2.06 X 10*3/uL (0.90-5.00); Lymphocytes % (A) 18.4 %; MCH 27.3 pg (27.0-32.0); MCHC 31.9 g/dL (32.0-37.0); MCV 85.6 FL (80.0-97.0); Monocytes # (A) 0.84 X 10*3/uL (0.20-1.00); Monocytes % (A) 7.5 %; NRBC Per 100 WBC 0 X 10*3/uL (0.00-0.01); Neutrophils # (A) 7.95 X 10*3/uL (1.80-7.70); Neutrophils % (A) 70.9 %; Platelet Count 272 X 10*3/uL (140-440); RBC 5.83 X 10*6/uL (4.40-5.60); RDW 14.6 % (11.5-14.5); WBC 11.21 X 10*3/uL (4.50-10.00)
[2024-07-28 15:19] LABS: ALT 24 U/L (10-49); AST 20 U/L (14-35); Albumin 4.1 g/dL (3.8-4.9); Albumin/Globulin Ratio 1.78 Ratio (1.60-3.17); Alkaline Phosphatase 106 U/L (41-126); BUN/Creat Ratio 20.38 Ratio (12.00-20.00); Bilirubin, Conjugated <0.20 mg/dL (0.20-0.40); Bilirubin,Unconjugated >0.50 mg/dL (0.20-1.00); Blood Urea Nitrogen 26.5 mg/dL (9.0-27.0); Calcium 9.3 mg/dL (8.7-10.3); Carbon Dioxide 24.4 mmol/L (21.6-31.8); Chloride 105 mmol/L (96-109); Chol/HDL Ratio 3.81 Ratio; Globulin 2.3 g/dL (1.6-3.3); Glucose 124 mg/dL (70-110); LDL Cholesterol,Calculated 93.9 mg/dL (0.0-131.0); Potassium 4.2 mmol/L (3.5-5.5); Sodium 141 mmol/L (135-145); Total Bilirubin 0.7 mg/dL (0.3-1.2); Total Protein 6.4 g/dL (6.2-8.2)
== END | disposition home or self-care (01) ==
LOC: LABWHC1 08:30
PROVIDERS: ATTEND Family Medicine
CPT/HCPCS: 36415; 80053; 80061; 82248; 83036; 85025

== ENCOUNTER → 2024-10-04 | Outpatient (CLI) | payer OTHER ==
[2024-10-04 13:56] LABS: African American GFR (CKD) >90 (>60 ml/min/1.73 sqM); Blood Urea Nitrogen 15 mg/dL (9-20); Non-African American GFR(CKD) 80 (>60 ml/min/1.73 sqM)
--- NOTE | 2024-10-04 15:07 | CT ---
EXAMINATION TYPE: CT angio neck CT DLP: 473.90 mGycm, Automated exposure control for dose reduction was used. DATE OF EXAM: 10/04/2024 2:49 PM COMPARISON: CT cervical spine 10/03/2021. 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 Axial images are supplemented with 3D reconstructions wh ich were post-processed at an independent workstation. NASCET criteria used. FINDINGS: CTA NECK: Right Carotid System: The common carotid artery and external carotid artery are patent. The carotid bifurcation demonstrate s no evidence of hemodynamically significant stenosis. Retropharyngeal course of the internal carotid artery. Mild calcified and noncalcified plaque involving the proximal portion of the right internal carotid artery. The remaining portions of the internal carotid artery demonstrate normal size without significant narrowing. Left Carotid System: The common carotid artery and external carotid artery are patent. The carotid bifurcation demonstrate s no evidence of hemodynamically significant stenosis. Retropharyngeal course of the internal carotid artery. The remaining portions of the internal carotid artery demonstrate normal size without signif icant narrowing. Vertebral arteries are patent. Moderate stenosis at the origin secondary to calcified plaque. No sign ificant stenosis of the remaining portions of both vertebral arteries. There is a bovine aortic arch. The origins of the great vessels are patent. No evidence of hemodynami josefa significant stenosis. IMPRESSION: No evidence of dissection of the cervical internal carotid arteries or vertebral arteries or any evid ence of significant stenosis at the carotid bifurcations. Moderate stenosis at the origin left verte bral artery secondary to calcified plaque. Mild amount of atherosclerotic plaque involving the proxim al portion of the right internal carotid artery. [facility], , 10/04/2024 3:05 PM
== END | disposition home or self-care (01) ==
LOC: RADCTMAIN 12:56
PROVIDERS: ATTEND Family Medicine
DX: I65.01 Occlusion and stenosis of right vertebral artery (principal); I70.90 Unspecified atherosclerosis
CPT/HCPCS: 82565; 84520; 70498; 36415; Q9967

== ENCOUNTER → 2025-04-09 | Outpatient (CLI) | payer MEDICAID ==
[2025-04-09 10:47] LABS: ALT 23 U/L (10-49); AST 22 U/L (14-35); Albumin/Globulin Ratio 1.74 Ratio (1.60-3.17); Alkaline Phosphatase 109 U/L (41-126); BUN/Creat Ratio 8.36 Ratio (12.00-20.00); Blood Urea Nitrogen 11.7 mg/dL (9.0-27.0); Calcium 9.1 mg/dL (8.7-10.3); Carbon Dioxide 22.3 mmol/L (21.6-31.8); Chloride 106 mmol/L (96-109); Chol/HDL Ratio 4.36 Ratio; Globulin 2.3 g/dL (1.6-3.3); Glucose 126 mg/dL (70-110); LDL Cholesterol,Calculated 74.6 mg/dL (0.0-131.0); Potassium 4.6 mmol/L (3.5-5.5); Sodium 142 mmol/L (135-145); T4, Free (Free Thyroxine) 0.79 ng/dL (0.80-1.80); Total Bilirubin 0.6 mg/dL (0.3-1.2); Total Protein 6.3 g/dL (6.2-8.2)
== END | disposition home or self-care (01) ==
LOC: LABWHC1 07:42
PROVIDERS: ATTEND Family Medicine
DX: E13.9 Other specified diabetes mellitus without complications (principal); E78.5 Hyperlipidemia, unspecified; E03.9 Hypothyroidism, unspecified
CPT/HCPCS: 36415; 80053; 80061; 83036; 84439; 84443